=== PATIENT | male | born 1955 | race Caucasian/White ===

== ENCOUNTER 2023-09-25 07:17 | Outpatient (OUT) | payer OTHER, SELFPAY ==
[2023-09-25 07:46] LABS: Basophils Percent Auto 0.3 % (0.2-2.0); Eosinophils Absolute Auto 0.1 10^3/uL (0.0-0.7); Eosinophils Percent Auto 0.8 % (0.9-7.0); Hematocrit 45.3 % (42.0-54.0); Hemoglobin 14.9 g/dL (14.0-18.0); Immature Granulocytes Abs Auto 0.01 10^3/uL (0.00-0.03); Immature Granulocytes Pct Auto 0.2 % (0.0-0.5); Lymphocytes Percent Auto 30.4 % (20.5-60.0); Mean Corpuscular HGB Conc 32.9 g/dL (29.9-35.2); Mean Corpuscular Hemoglobin 29.7 pg (25.9-34.0); Mean Corpuscular Volume 90.4 fL (80.0-94.0); Mean Platelet Volume 9.7 fL (9.5-13.5); Monocytes Absolute Auto 0.6 10^3/uL (0.3-0.8); Monocytes Percent Auto 9.2 % (1.7-12.0); Neutrophils Absolute Auto 3.8 10^3/uL (1.4-6.5); Neutrophils Percent Auto 59.1 % (43.0-75.0); Platelet Count 204 10^3/uL (150-450); Red Blood Count 5.01 10^6/uL (4.70-6.10); Red Cell Distribution Width 12.8 % (11.0-15.0); White Blood Count 6.4 10^3/uL (4.0-11.0)
[2023-09-25 08:43] LABS: Alanine Aminotransferase 29 U/L (16-63); Albumin Level 3.6 g/dL (3.4-5.0); Alkaline Phosphatase 79 U/L (46-116); Aspartate Amino Transferase 23 U/L (15-37); BUN Creatinine Ratio 19.1; Bilirubin Total 0.7 mg/dL (0.2-1.0); Calcium 8.5 mg/dL (8.5-10.1); Carbon Dioxide 31.2 mmol/L (21.0-32.0); Chloride 101 mmol/L (98-107); Chol HDL Ratio 2.7; Cholesterol 181 mg/dL (<=200); Estimated GFR (African America >60 (>=60); Estimated GFR (Non-African Ame >60 (>=60); Globulin 3.6 g/dL; Glucose 86 mg/dL (74-106); HDL Cholesterol 67 mg/dL (40-60); Potassium 4.2 mmol/L (3.5-5.1); Sodium 139 mmol/L (136-145); Total Protein 7.2 g/dL (6.4-8.2); Triglycerides 48 mg/dL (<=150); VLDL CHOLESTEROL 9.6 mg/dL
[2023-09-25 10:12] LABS: Prostate Specific Antigen Scrn 0.31 ng/mL (<=4.00)
== END 2023-09-25 07:18 | disposition home or self-care (01) ==
LOC: LAB 07:17
PROVIDERS: PCP Internal Medicine; Visit Provider Internal Medicine
DX: Z00.00 Encounter for general adult medical examination without abnormal findings (principal); Z12.5 Encounter for screening for malignant neoplasm of prostate
CPT/HCPCS: 36415; 80053; 80061; 85025; G0103

== ENCOUNTER 2024-03-11 07:02 | Outpatient (RCR) | payer OTHER, SELFPAY | END 2024-04-12 09:59 | disposition home or self-care (01) | LOC: PT 07:02 | PROVIDERS: PCP Internal Medicine; Visit Provider Nurse Practitioner Family | DX: Z47.1 Aftercare following joint replacement surgery (principal); Z96.652 Presence of left artificial knee joint | CPT/HCPCS: 97110; 97140; 97161 ==

== ENCOUNTER 2025-02-12 19:23 | Emergency (ER) | payer OTHER, SELFPAY ==
--- OUTSIDE RECORDS SUMMARY | 2025-02-05 13:15 | XMS_ITS | Encounter Summary ---
Author Organization [facility] Address [address] [place] [address] Care Team Providers Care Typesetters Printer Name Role Phone Bhavesh Lopez Primary Care Provider [phone] Reason for Visit * Reason Comments Foot Pain Eagle Marie 69yo Ne w Patient presents with Left, lateral side,foot pain. Patient admits multiple fractures, sprains, with several casts in the late 1970's. Pain started 01/30/2025, NKI, noticed while walking, pain is constant, less when elevating, icing. 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 SS 10.5 Encounter Details Date Type Department Care Team (Late st Contact Info) Description 02/05/2025 1:15 PM EDT [facility] Visit [facility] [address] [place] [phone] Alena Ott, DPM [address] [place] [address] Pain in joint of left foot (Primary Dx); Arthritis of right foot; Peroneal tendonitis, left; Left foot pain Social History Tobacco Use Types Packs/Day Years Used Date Smoking Tobacco: Never Alcohol Use Standard Drinks/Week Comments Yes 1 (1 standard drink = 0.6 oz pur e alcohol) 1-2x monthly Sex and Gender Information Value Date Recorded Sex Assigned at Not on file Legal Sex Male 7:36 PM EDT Gender Identity Not on file Sexual Orientation Not on file documented as of this encounter Last Filed Vital Signs Vital Sign Reading Time Taken Comments Blood Pressure - - Pulse - - Temperature - - Respiratory Rate - - Oxygen Saturation - - Inhaled Oxygen Concentration - - Weight 80.7 kg (178 lb) 02/05/2025 1:26 PM EDT Height 182.9 cm (6') 02/05/2025 1:26 PM EDT Body Mass Index 24.14 02/05/2025 1:26 PM EDT documented in this encounter Progress Notes * Alena Ott, DPM - 02/05/2025 1:15 PM EDT Images from the original note were not included. Subjective Patient ID: Eagle Marie is a 69 y.o. male who presents for Foot Pain (Eagle Marie 69yo New Patient presents with Left, lateral side,foot pain. Patient admits multiple fractures, sprains, with several casts in the late s. Pain started 01/30/2025, NKI, noticed while walking, pain is constant, less when elevating, icing. 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 HPI Patient presents complaining of left lateral foot pain that started January 30. Denies injury. Noticed swelling and pain with ambulation. Describes the pain now is deep throbbing. He has tried icing and on meloxicam for other joint pain. He points to the lateral mid foot as the area of most pain. 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 He also likes to bike for exercise. He does wear custom inserts and typically wears [employer] tennis shoes to work Review of Systems Medications Current Outpatient Medications: meloxicam (Mobic) 15 MG tablet, Take 15 mg by mouth Daily, Disp: , Rfl: predniSONE (Deltasone) 10 MG tablet, Take 1 tablet (10 mg) by mouth See administration instructionsfor 12 days Take one tablet three times a day x 3 days, then take one tablet twice a day x 3 days, then take one tablet once a day x 3 days, then take 1/2 tab once a day x 3 days, Disp: 20 tablet, Rfl: 0 Allergies Patient has no known allergies. Past Surgical History Past Surgical History: Procedure Laterality Date HERNIA REPAIR x3 MENISCECTOMY Bilateral TOTAL KNEE ARTHROPLASTY Right 02/18/2024 Family History Family History Problem Relation Name Age of Onset Melanoma Sister Objective Physical Exam Constitutional: Appearance: Normal appearance. HENT: Head: Normocephalic and atraumatic. Cardiovascular: Comments: Pedal pulses: DP 2/4 bilateral, PT 2/4 bilateral. Skin temp is warm to warm. Varicosities: present Hair growth: present Pulmonary: Effort: Pulmonary effort is normal. Musculoskeletal: Right lower leg: No edema. Left lower leg: No edema. Comments: ROM: Passive and active ankle joint and subtalar joint range motion are nonpainful MUSCLE STRENGTH: Dorsiflexion, plantarflexion, inversion, eversion are 5/5 b/l. PAIN: left foot - there is pain with palpation at the cuboid, 4th 5th metatarsal cuboid joint, calcaneocuboid joint, and lateral cuneiform cuboid joint. There is pain along the PL tendon and cuboid groove interface. DEFORMITY: cavus Skin: General: Skin is warm and dry. Capillary Refill: Capillary refill takes 2 to 3 seconds. Findings: No bruising or erythema. Comments: SKIN FINDINGS: Webspaces are clean and dry. Skin texture and turgor normal HYPERKERATOTIC LESION: none Neurological: Mental Status: He is alert and oriented to person, place, and time. Comments: Light touch sensation intact XR foot 3+ views left Imaging Result: 3 views foot: AP, MO, and lateral of the left foot were taken and show no fractures or dislocationsspecifically of the cuboid. There is metatarsal head flattening noted of 1 and 2. Accessory ossiclenoted just proximal to the cuboid groove. Asymmetric joint space narrowing noted at the 5th metatarsal cuboid joint. Remaining cuboid joints appear well maintained. Lateral view shows increased calcaneal pitch, decreased talar declination angle. There are degenerative changes noted at the tibiotalar joint with spurring at the talar neck and subcortical cystic changes noted in the talus. Small plantar heel spur present. Assessment/Plan ICD-10-CM 1. Pain in joint of left foot M25.572 predniSONE (Deltasone) 10 MG tablet XR foot 3+ views left 2. Arthritis of right foot M19.071 3. Peroneal tendonitis, left M76.72 4. Left foot pain M79.672 Patient was examined and evaluated. Radiographs and clinical findings were reviewed with the patient. Discuss with patient the diagnosis of arthritis/capsulitis and that the chronic issue can sometimes have acute flares of pain/inflammation. I also reviewed the diagnosis of peroneal tendonitis. Stre ss the importance of good supportive tie shoes, dispensed information on [employer] and [employer] to be fit and measured for shoes. Pt wears custom inserts, he tried on powersteps today and liked them, they felt comfortable, these were dispensed to him. Advise no flip flops, slippers nor barefeet, wear supportive shoes and inserts with all weight bearing activity. Modify exercise. Explain the anatomy of the joints involved as well as the peroneal tendons and cuboid. Also advise icing therapy in evenings. Erx Prednisone 10mg taper, hold Meloxicam until Prednisone complete. If no improvement in symptoms consider MRI/immobilization. This note was created with the assistance of a speech recognition program. While intending to generate a timely document that accurately reflects the content of the visit, no guarantee can be provided that every grammatical or spelling mistake has been or will be identified or corrected. Thank you for your understanding. Alena Ott DPM documented in this encounter Plan of Treatment Upcoming Encounters Date Type Department Care Team (Late st Contact Info) Description 03/03/2025 11:00 AM EDT Office Visit [facility] [address] [place] [phone] Alena Ott DPM [address] [place], [place] [phone] documented as of this encounter Procedures Procedure Name Priority Date/Time Associated Diagnosis Comments XR FOOT 3+ VIEWS LEFT Routine 02/05/2025 3:21 PM EDT Pain in joint of left foot documented in this encounter Results * XR foot 3+ views left (02/05/2025 3:21 PM EDT) Anatomical Region Laterality Modality Lower Extremities, Foot Left Radiogra phic Imaging Narrative 02/05/2025 4:33 PM EDT Imaging Result: 3 views foot: AP, MO, and lateral of the left foot were taken and show no fractures or dislocations specifically of the cuboid. There is metatarsal head flattening noted of 1 and 2. Accessory ossicle noted just proximal to the cuboid groove. Asymmetric joint space narrowing noted at the 5th metatarsal cuboid joint. Remaining cuboid joints appear well maintained. Lateral view shows increased calcaneal pitch, decreased talar declination angle. There are degenerative changes noted at the tibiotalar joint with spurring at the talar neck and subcortical cystic changes noted in the talus. Small plantar heel spur present. us Alena Ott DPM IMG XR PROCEDURES Final Res ult documented in this encounter Visit Diagnoses Diagnosis Pain in joint of left foot- Primary Arthritis of right foot Peroneal tendonitis, left Left foot pain Pain in soft tissues of limb documented in this encounter Care Teams Typesetters Printer Relationship Specialty Start Date End Date Bhavesh Lopez DO [address] [place] [id number] PCP - General Internal Medicine 02/04/25 documented as of this encounter
--- OUTSIDE RECORDS SUMMARY | 2025-02-05 15:25 | XMS_ITS | Encounter Summary ---
Author Organization [facility] Address [address] [place] [address] Care Team Providers Care Fruit Thinner Name Role Phone Bhavesh Lopez Primary Care Provider [phone] Encounter Details Date Type Department Care Team (Late st Contact Info) Description 02/05/2025 3:25 PM EDT Ancillary Procedure [facility] [address] [place] [address] Social History Tobacco Use Types Packs/Day Years [...] on file documented as of this encounter Plan of Treatment Upcoming Encounters Date Type Department Care Team (Late st Contact Info) Description 03/03/2025 11:00 AM EDT Office Visit [facility] [address] [place] [address] Alena Ott, DPM [address] [place], [place] [phone] documented as of this encounter Procedures Procedure [...] ult documented in this encounter Visit Diagnoses Not on filedocumented in this encounter Care Teams Fruit Thinner Relationship Specialty Start Date End Date Bhavesh Lopez DO [address] [place] [address] PCP - General Internal Medicine 02/04/25 documented as of this encounter
[2025-02-12 19:31] VITALS: BP 133/88; PULSE 74; TEMP 36.7; O2SAT 97; BMI 23.7
--- OUTSIDE RECORDS SUMMARY | 2025-02-12 19:31 | XMS_ITS | Encounter Summary ---
Author Organization [facility] Address [address] [facility] [place] [address] Care Team Providers Care Oil Recovery Unit Operator Name Role Phone Bhavesh Lopez DO Primary Care Provider [phone] Encounter Details Date Type Department Care Team (Latest Contact Info) Description 02/05/2025 Travel Social History Tobacco Use Types Packs/Day Years [...] AM EDT Office Visit [facility] [address] [place] [phone] Alena Ott, DPM [address] [place] [address] documented as of this encounter Visit Diagnoses Not on filedocumented in this encounter Care Teams Oil Recovery Unit Operator Relationship Specialty Start Date End Date Bhavesh Lopez DO [address] [place] [address] PCP - General Internal Medicine 02/04/25 documented as of this encounter
--- OUTSIDE RECORDS SUMMARY | 2025-02-12 19:31 | XMS_ITS | Patient Health Record ---
Author Organization [facility] Address [address] [place] [address] Care Team Providers Care Basket Patcher Name Role Phone Martínez Casarez Unavailable [phone] Allergies No Known Allergies Reason For Referral No Information Social History Tobacco Use: Social History Observation Description Date Details (start date - stop date) Never Smoker NA - NA Smoking History Question Answer Notes Smoking Status NonSmoker AUDIT-C (Standard) Question Answer Notes Did you have a drink contain ing alcohol in the past year? Yes How often did you have six o r more drinks on one occasion in the past year? Never (0 point) How many drinks did you have on a typical day when you were drinking in the past year? 1 or 2 drinks (0 point) How often did you have a dri nk containing alcohol in the past year? 2 to 4 times a month (2 points) Points 2 Interpretation Negative Problems Problem Type SNOMED Code ICD Code Onset Dates Problem Status W/U Status Risk Notes Problem [id number] Bilateral primar y osteoarthritis of knee (M17.0) Active confirmed Plan Of Treatment No Information Insurance Providers Payer Name Payer Address Payer Phone Subscriber Number Group Number Insured Name Patient Relationship to Insured Coverage Start Date Coverage End Date [facility] [place] [address] [place] [phone] [id number] KAYLEY SANDERSON Self - patient is the insured Medications Administered Medication Instructions Date of Administration Dosage Notes GELSYN-3 10/31/2023 2 mL GELSYN-3 10/31/2023 2 mL GELSYN-3 11/07/2023 2 mL GELSYN-3 11/07/2023 2 mL GELSYN-3 11/12/2023 2 mL GELSYN-3 11/12/2023 2 mL
--- OUTSIDE RECORDS SUMMARY | 2025-02-12 19:31 | XMS_ITS | Clinical Summary ---
Author Organization [facility] Address [address] [place] [address] Care Team Providers Care Cad Manager Name Role Phone Bhavesh Lopez Primary Care Provider [phone] Allergies No known active allergies Medications meloxicam (Mobic) 15 MG tablet Take 15 mg by mouth Daily 5 Active predniSONE (Deltasone) 10 MG tabletIndicati ons:Pain in joint of left foot Take 1 tablet (10 mg) by mouth See administration instructions for 12 days Take one tablet three times a day x 3 days, then take one tablet twice a day x 3 days, then take one tablet once a day x 3 days, then take 1/2 tab once a day x 3 days 20 tablet 5 025 Active Active Problems No known active problems Encounters Date Type Department Care Team Description 02/05/2025 3:25 PM EDT Ancillary Procedure [facility] [address] [place] [address] 02/05/2025 1:15 PM EDT Office Visit [facility] [address] [place] [address] Alena Ott, DPStephie Pain in joint of left foot (Primary Dx); Arthritis of right foot; Peroneal tendonitis, left; Left foot pain 02/05/2025 Bamboo flowsheet [facility] [address] [place] [address] Alena Ott DPM 02/05/2025 Travel from Last 3 Months Family History Medical History Relation Name Comments Melanoma Sister Relation Name Status Comments Father Mother Sister Social History Tobacco Use Types Packs/Day Years Used Date Smoking Tobacco: Never Alcohol Use Standard Drinks/Week Comments Yes 1 (1 standard drink = 0.6 oz pur e alcohol) 1-2x monthly Sex and Gender Information Value Date Recorded Sex Assigned at Not on file Legal Sex Male 7:36 PM EDT Gender Identity Not on file Sexual Orientation Not on file Last Filed Vital Signs Vital Sign Reading Time Taken Comments Blood Pressure - - Pulse - - Temperature - - Respiratory Rate - - Oxygen Saturation - - Inhaled Oxygen Concentration - - Weight 80.7 kg (178 lb) 02/05/2025 1:26 PM EDT Height 182.9 cm (6') 02/05/2025 1:26 PM EDT Body Mass Index 24.14 02/05/2025 1:26 PM EDT Plan of Treatment Upcoming Encounters Date Type Department Care Team (Late st Contact Info) Description 03/03/2025 11:00 AM EDT [facility] Visit [facility] [address] [place] [address] Alena Ott, DPM [address] [place], [place] [phone] Health Maintenance Due Date Last Done Comments CT Colonography 1956 Colonoscopy 1956 Colorectal Cancer Screening 1956 FIT-DNA 1956 FIT 1956 FOBT 1956 Sigmoidoscopy 1956 Pneumococcal Vaccine: 65+ Ye ars (1 of 1 - PCV) 2006 Influenza Vaccine (#1) 2025 3, 06/01/2022, 05/12/2020, Additional history exists Procedures Procedure Name Priority Date/Time Associated Diagnosis Comments XR FOOT 3+ VIEWS LEFT Routine 02/05/2025 3:21 PM EDT Pain in joint of left foot from Last 3 Months Results * XR foot 3+ views left [...] DPM IMG XR PROCEDURES Final Res ult from Last [address] [place] [address] [place] [address] [facility] Care Teams Cad Manager Relationship Specialty Start Date End Date Bhavesh Lopez DO [address] [facility] [place] [address] PCP - General Internal Medicine 02/04/25
--- OUTSIDE RECORDS SUMMARY | 2025-02-12 19:31 | XMS_ITS | Clinical Summary ---
Author Organization [facility] Address [address] [place] [address] Care Team Providers Care Torch Cutter Name Role Phone Bhavesh Lopez Primary Care Provider [phone] Allergies No known active allergies Medications No known medications Active Problems Problem Noted Date Diagnosed Date Tear of medial cartilage or meniscus of knee, cu rrent 06/27/2007 Follow-up examination, following other surgery 1 08/27/2006 Other and unspecified derangement of medial meni scus 05/24/2007 Family History Medical History Relation Comments None Father at 85 None Mother Relation Status Comments Father Mother Social History Tobacco Use Types Packs/Day Years Used Date Smoking Tobacco: Never Smokeless Tobacco: Never Alcohol Use Standard Drinks/Week Comments No 0 (1 standard drink = 0.6 oz pur e alcohol) Sex and Gender Information Value Date Recorded Sex Assigned at Not on file Legal Sex Male 9:35 AM EST Gender Identity Not on file Sexual Orientation Not on file Last Filed Vital Signs Vital Sign Reading Time Taken Comments Blood Pressure 116/63 11/21/2013 3:00 PM EDT Pulse 80 11/21/2013 3:00 PM EDT Temperature 36.4 C (97.5 F) 11/21/2013 3:00 PM EDT Respiratory Rate 18 11/21/2013 3:00 PM EDT Oxygen Saturation 100% 11/21/2013 3:00 PM EDT Inhaled Oxygen Concentration - - Weight 81.6 kg (180 lb) 01/19/2017 12:26 PM EDT Height 182.9 cm (6') 01/19/2017 12:26 PM EDT Body Mass Index 24.41 01/19/2017 12:26 PM EDT Plan of Treatment Health Maintenance Due Date Last Done Comments Anxiety Screening 1974 Depression Screening 1974 Hepatitis C Screening 1974 DTaP,Tdap,Td Vaccine (1 - Tdap) [address] Colonography 2001 Cologuard (FIT-DNA) 2001 Colonoscopy 2001 Colorectal Cancer Screening 2001 Diabetes Screening 2001 Fecal Occult Blood 2001 Prostate Cancer Screening Discussion 2001 Sigmoidoscopy 2001 Pneumococcal Vaccine: 50+ (1 of 1 - PCV) 2006 Shingrix Vaccine (1 of 2) 2006 Covid-19 Vaccine (1 - 2023-25 season) 2024 Advance Directive Discussion 07/30/2024 Influenza Vaccine (#1) 2025 RSV Vaccine (1 - 1-dose 75+ series) 2031 Insurance [facility] CHOICE PLUS Advance Directives Documents on File Type Date Recorded Patient Manager Of Clinical Expl anation Advance Directive(s) Advance Directive(s) 06/14/2007 Care Teams Torch Cutter Relationship Specialty Start Date End Date Bhavesh Lopez DO [address] [facility] [place] [address] PCP - General 06/14/07
--- OUTSIDE RECORDS SUMMARY | 2025-02-12 19:31 | XMS_ITS | Encounter Summary ---
Author Organization [facility] Address [address] [place] [address] Care Team Providers Care Electronics Maintenance Technician Name Role Phone Bhavesh Lopez DO Primary Care Provider [phone] Encounter Details Date Type Department Care Team (Late Contact Info) Description 02/05/2025 Bamboo flowsheet [facility] [address] [place] [address] Alena Ott, DPM [address] [place], [place] [phone] Social History Tobacco Use Types Packs/Day Years [...] Encounters Date Type Department Care Team (Late Contact Info) Description 03/03/2025 11:00 AM EDT [facility] Visit [facility] [address] [place] [address] Alena Ott, VIELKA [address] [facility] [place], [place] [phone] documented as of this encounter Visit Diagnoses Not on filedocumented in this encounter Care Teams Electronics Maintenance Technician Relationship Specialty Start Date End Date Bhavesh Lopez DO [address] [facility] [place] [address] PCP - General Internal Medicine 02/04/25 documented as of this encounter
--- OUTSIDE RECORDS SUMMARY | 2025-02-12 19:32 | XMS_ITS | CCD ---
Author Organization [facility] Inform ion Partnership [facility] Care Team Providers Care Alteration Specialist Name Role Phone BHAVESH LOPEZ Unavailable Unavailable COPC TONYA, GENERIC Unavailable Unavailable KAYLEY VELOZ Unavailable Unavailab AIRAM Fine Unavailable Unavailable SONIA KENNEY Unavailable Unavailable LESLEE WOLFF (PA) Unavailable Unavailab Bhavesh Almaguer Unavailable NILL, DR MARTELL Consulting Unavailable NILL, DR MARTELL Admitting Unavailable NILL, DR MARTELL Attending Unavailable GALLITO, DR EDMONDS Primary Care Unavailable KAYLEY FERNANDEZ JR Attending Unavailable KAYLEY FERNANDEZ JR Consulting Unavailable KAYLEY FERNANDEZ JR Admitting Unavailable GALLITO, DR EDMONDS Primary Care Unavailable FELICITAS DEJESUS Consulting Unavailable KAYLEY FERNANDEZ JR Admitting Unavailable KAYLEY FERNANDEZ JR Attending Unavailable GALLITO, DR EDMONDS Primary Care Unavailable KAYLEY FERNANDEZ JR Consulting Unavailable JULIANA, DR LIDIA Hernandez Admitting Unavailable MANZANARES, DR LIDIA Hernandez Attending Unavailable BALL, DR EDMONDS Primary Care Unavailable NILL, DR MARTELL Admitting Unavailable NILL, DR MARTELL Attending Unavailable BALL, DR EDMONDS Primary Care Unavailable NILL, DR MARTELL Consulting Unavailable NILL, DR MARTELL Admitting Unavailable NILL, DR MARTELL Attending Unavailable BALL, DR EDMONDS Primary Care Unavailable SHAQUILLE PRYOR Consulting Unavailable Siria Faust Unavailable Bhavesh Lopez Unavailable DO Bhavesh Lopez Primary Care Provider [phone] MD Rakan Morton II Attending Provider DO Bhavesh Lopez Primary Care Provider [phone] MD Rakan Morton II Attending Provider DO Bhavesh Lopez Primary Care Provider [phone] MD Rakan Morton II Attending Provider DO Gallito Bhavesh Primary Care Provider [phone] MD Rakan Morton II Attending Provider [phone] Ball , Bhavesh Primary Care Provider Rakan Morton MD Attending Provider [phone] Gallito WADDELL Bhavesh Primary Care Provider [phone] Rakan Morton MD Attending Provider [facility] Unavailable Yoselin II, Rakan Card Attending Unavailabl e Yoselin II, Rakan Card Admitting Unavailabl e Casanova II, Rakan Card Attending Unavailabl e Casanova II, Rakan M Admitting Unavailabl e Ball, Bhavesh Primary Care Unavailable Yoselin II, Rakan Card Attending Unavailabl e Casanova II, Rakan M Admitting Unavailabl e Ball, Bhavesh Primary Care Unavailable Yoselin II, Rakan Card Admitting Unavailabl e Yoselin II, Rakan Card Attending Unavailabl e Ball, Bhavesh Primary Care Unavailable Yoselin II, Rakan Card Admitting Unavailabl e Casanova II, Rakan Card Attending Unavailabl e Ball, Bhavesh Primary Care Unavailable Yoselin II, Rakan Card Attending Unavailabl e Yoselin II, Rakan Card Admitting Unavailabl e Ball, Ashby Primary Care Unavailable Casanova II, Rakan Card Attending Unavailabl e Casanova II, Rakan M Admitting Unavailabl e Ball, Bhavesh Primary Care Unavailable Casanova II, Rakan M Attending Unavailabl e Yoselin II, Rakan M Admitting Unavailabl e Ball, Ashby Primary Care Unavailable Yoselin II, Rakan Card Attending Unavailabl e Casanova II, Rakan M Admitting Unavailabl e Ball, Ashby Primary Care Unavailable Casanova II, Rakan M Attending Unavailabl e Casanova II, Rakan M Admitting Unavailabl e Ball, Ashby Primary Care Unavailable Ball , [facility] Primary Care Provider ALENA RARIOLA Attending Unavailable ALENA ARRIOLA Referring Unavailable Allergies Allergy Classification Reported Allergen(s) Allergy Type Date of Onset Reaction(s) Facility (2 sources) Triamcinolone Drug Allergy 3 Unknown [employer] Other (1 source) Triamcinolone Drug Allergy [facility] Repository Medications Current Medications Medication Drug Class(es) Dates Sig (Normalized) Sig (Original) Diclofenac (2 sources) Nonsteroidal Anti-inflammatory Drug Start: 11-26-2024 Diclofenac Sodium (Voltaren Arthritis Pain) 1 % gel Active 2 GM TOPICAL Four times daily 100 November 26, 2024 12:00am apply small amount to effected area 4-5 times daily erythromycin 0.005 mg/mg ophthalmic ointment (2 sources) Macrolide, Macrolide Antimicrobial Start: 03-30-2023 Erythromycin 5 MG/GM 1/2 inch application into the lower eyelid of affected eye Ophthalmic Four times a day for 5 days Mar, Active meloxicam 15 mg oral tablet (20 sources) Nonsteroidal Anti-inflammatory Drug Start: 08-26-2024 End: 11-26-2024 take 1 tablet by mouth once daily meloxicam (Mobic) 15 MG tablet Take 15 mg by mouth Daily 11/21/2024 Active Start: 09-17-2023 End: 09-20-2023 take 1 tablet by mouth once daily Meloxicam 15 mg tablet Discontinued 15 MG PO Daily September 17, 2023 1:00am September 20, 2023 10:10am Meloxicam 15 MG Oral for 45 Days Active [facility] (No Known Home Meds) (5 sources) Start: 01-03-2024 [facility] (No Kn own Home Meds) Active January 03, 2024 12:00am predniSONE 10 mg oral tablet (2 sources) Start: 02-05-2025 End: 02-17-2025 predniSONE (Deltasone) 10 MG tablet Indications: Pain in joint of left foot Take 1 tablet (10 mg) by mouth See administration instructions for 12 days Take one tablet three times a day x 3 days, then take one tablet twice a day x 3 days, then take one tablet once a day x 3 days, then take 1/2 tab once a day x 3 days 20 tablet 02/05/2025 02/17/2025 Active Completed/Discontinued Medications Medication Drug Class(es) Dates Sig (Normalized) Sig (Original) acetaminophen 500 mg oral tablet (15 sources) Start: 02-07-2024 End: 04-02-2024 take 2 tablets by mouth every eight hours Acetaminophen 500 mg tablet Discontinued 1000 MG PO Q8H 180 30 February 07, 2024 12:00am April 02, 2024 11:40am DO NOT RECONCILE UNTIL DOS:02/18/2024 MED TO BED Start: 02-07-2024 End: 04-02-2024 take 1000 mg by mouth every eight hours Acetaminophen Discontinued 1000 MG PO Q8H 180 February 07, 2024 12:00am April 02, 2024 11:40am DO NOT RECONCILE UNTIL DOS:02/18/2024 MED TO BED acetaminophen 325 mg / oxyCODONE hydrochloride 5 mg oral tablet (20 sources) Opioid Agonist Start: 06-11-2017 End: 09-17-2023 take 1 tablet by mouth every six hours as needed for pain Oxycodone-Acetaminophen (Percocet) 5-325 mg tablet Discontinued 1 TAB PO Q6H as needed for pain June 11, 2017 September 17, 2023 1:07pm Start: 05-20-2017 End: 05-25-2017 take 1 tablet by mouth every six hours oxyCODONE-acetaminophen (PERCOCET) 5-325 mg per tablet Take 1 (one) tablet by mouth every 6 (six) hours as needed for pain. 20 tablet 0 05/20/2017 05/25/2017 Active amoxicillin 500 mg oral tablet (11 sources) Penicillin-class Antibacterial Start: 05-21-2024 End: 08-29-2024 take 4 tablets by mouth once Amoxicillin 500 mg tablet Discontinued 2000 MG PO once 4 June 30, 2024 4:35pm August 29, 2024 11:02am End: 05-20-2017 AMOXICILLIN ORAL Take by tonya th. 05/20/2017 Discontinued amoxicillin 875 mg / clavulanate 125 mg oral tablet (20 sources) Penicillin-class Antibacterial Start: 06-07-2017 End: 09-17-2023 Amoxicillin-Pot Clavulanate 875-125 mg tablet Discontinued TABLET June 07, 2017 1:00am September 17, 2023 1:07pm Start: 05-16-2017 End: 05-25-2017 take 1 tablet by mouth twice daily amoxicillin-clavulanate (AUGMENTIN) 875-125 mg per tablet Take 1 tablet by mouth 2 (two) times a day For 10 days. 05/16/2017 05/25/2017 Active aspirin 81 mg delayed release oral tablet (15 sources) Platelet Aggregation Inhibitor, Nonsteroidal Anti-inflammatory Drug Start: 02-07-2024 End: 04-02-2024 take 1 tablet by mouth twice daily Aspirin 81 mg tablet,delayed release (DR/EC) Discontinued 81 MG PO Twice daily 70 35 February 07, 2024 12:00am April 02, 2024 11:40am DO NOT RECONCILE UNTIL DOS:02/18/2024 MED TO BED cefadroxil 500 mg oral capsule (15 sources) Cephalosporin Antibacterial Start: 02-07-2024 End: 04-02-2024 take 1 capsule by mouth every twelve hours Cefadroxil 500 mg capsule Discontinued 500 MG PO Q12H 14 February 07, 2024 12:00am April 02, 2024 11:40am DO NOT RECONCILE UNTIL DOS:02/18/2024 MED TO BED celecoxib 200 mg oral capsule (15 sources) Nonsteroidal Anti-inflammatory Drug Start: 02-07-2024 End: 08-26-2024 take 1 capsule by mouth twice daily Celecoxib 200 mg capsule Discontinued 200 MG PO Twice daily 60 February 07, 2024 12:00am August 26, 2024 11:22am DO NOT RECONCILE UNTIL DOS:02/18/2024 MED TO BED ciprofloxacin 500 mg oral tablet (20 sources) Quinolone Antimicrobial Start: 06-11-2017 End: 09-17-2023 take 1 tablet by mouth every two hours Ciprofloxacin Hcl (Cipro) 500 mg tablet Discontinued 500 MG PO Q12H 8 June 11, 2017 1:00am September 17, 2023 1:07pm administer dose at least 2 hrs before/6 hrs after dairy products, calcium, zinc, and/or iron-containing products Start: 05-20-2017 End: 05-23-2017 take 1 tablet by mouth twice daily ciprofloxacin HCl (CIPRO) 250 MG tablet Take 1 (one) tablet (250 mg total) by mouth 2 (two) times a day for 3 days. 6 tablet 0 05/20/2017 05/23/2017 Active Start: 05-01-2017 End: 05-20-2017 take 500 tablets by mouth every twelve hours ciprofloxacin HCl (CIPRO) 500 MG tablet Take 500 mg by mouth every 12 (twelve) hours. 0 05/01/2017 05/20/2017 Discontinued docusate sodium 50 mg / sennosides, custodial 8.6 mg oral tablet (15 sources) Start: 02-07-2024 End: 04-02-2024 take 2 tablets by mouth once daily Sennosides-Docusate Sodium (Senokot-S) 8.6-50 mg tablet Discontinued 2 TAB PO daily 60 30 February 07, 2024 12:00am April 02, 2024 11:41am DO NOT RECONCILE UNTIL DOS:02/18/2024 MED TO BED 0.4 ml enoxaparin sodium 100 mg/ml prefilled syringe (1 source) Low Molecular Weight Heparin Start: 05-20-2017 End: 05-20-2017 take 40 mg by subcutaneous injection once daily enoxaparin (LOVENOX) syringe 40 mg 40 mg, Subcutaneous, Daily, First dose on 05/20/17 at 0800, Administer in abdomen unless otherwise directed by prescriber. Notify physician if patient refuses. Given 05/20/2017 07:58 EDT 40 mg 1 ml HYDROmorphone hydrochloride 1 mg/ml injection (2 sources) Opioid Agonist Start: 05-20-2017 End: 05-20-2017 HYDROmorphone (DILAUDID) 1 mg/mL injection 0.5-1 mg 0.5-1 mg, Intravenous, Every 3 hours PRN, moderate to severe pain, dilaudid 0.5 mg ivp q3h prn pain 1-5 dilaudid 1 mg ivp q3h prn pain 6-10, Starting 05/20/17 at 0326 Given 05/20/2017 03:59 EDT 0.5 mg Start: 05-20-2017 End: 05-20-2017 HYDROmorphone (DILAUDID) 1 m g/mL injection 0.5 mg 0.5 mg, Intravenous, Once, 05/20/17 at 0040, For 1 dose Given 05/20/2017 00:44 EDT 0.5 mg Iopamidol (1 source) Radiographic Contrast Agent Start: 05-19-2017 End: 05-19-2017 iopamidol (ISOVUE-370) 76 % injection 75 mL 75 mL, Intravenous, Once in imaging, contrast, Starting 05/19/17 at 2313, For 1 dose Contrast Administered 05/19/2017 23:20 EDT 75 mL metroNIDAZOLE 500 mg oral tablet (1 source) Nitroimidazole Antimicrobial Start: 05-01-2017 End: 05-20-2017 take 1 tablet by mouth three times daily metroNIDAZOLE (FLAGYL) 500 MG tablet Take 500 mg by mouth 3 (three) times a day. 0 05/01/2017 05/20/2017 Discontinued ondansetron 4 mg oral tablet (16 sources) Serotonin-3 Receptor Antagonist Start: 02-07-2024 End: 04-02-2024 take 1 tablet by mouth every eight hours as needed for nausea Ondansetron Hcl 4 mg tablet Discontinued 4 MG PO Q8H as needed for Nausea February 07, 2024 12:00am April 02, 2024 11:40am DO NOT RECONCILE UNTIL DOS:02/18/2024 MED TO BED Start: 05-20-2017 End: 05-20-2017 ondansetron (ZOFRAN) injecti on 4 mg 4 mg, Intravenous, Every 6 hours PRN, nausea, vomiting, Starting 05/20/17 at 0326 Given 05/20/2017 08:09 EDT 4 mg oxyCODONE hydrochloride 5 mg oral tablet (15 sources) Opioid Agonist Start: 02-07-2024 End: 04-02-2024 take 1 tablet by mouth every four hours as needed for pain Oxycodone 5 mg tablet Discontinued 5 MG PO Q4H as needed for Pain 42 February 07, 2024 April 02, 2024 11:41am DO NOT RECONCILE UNTIL DOS:02/18/2024 MED TO BED pantoprazole 20 mg delayed release oral tablet (15 sources) Proton Pump Inhibitor Start: 02-07-2024 End: 04-02-2024 take 1 tablet by mouth once daily Pantoprazole (Protonix) 20 mg tablet,delayed release (DR/EC) Discontinued 20 MG PO daily 35 35 February 07, 2024 12:00am April 02, 2024 11:41am DO NOT RECONCILE UNTIL DOS:02/18/2024 MED TO BED polyethylene glycol 3350 45516 mg powder for oral solution (15 sources) Osmotic Laxative Start: 02-07-2024 End: 04-02-2024 Polyethylene Glycol 3350 (Miralax) 17 gram/dose powder Discontinued 17 GM PO daily 7 February 07, 2024 12:00am April 02, 2024 11:41am 1 packed mixed with 8 ounces of fluid. DO NOT RECONCILE UNTIL DOS:02/18/2024 MED TO BED 1000 ml sodium chloride 9 mg/ml injection (4 sources) Start: 05-20-2017 End: 05-20-2017 take 150 mL intravenous route every hour sodium chloride 0.9% (NS) 150 mL/hr, Intravenous, Continuous, Starting 05/20/17 at 0415 Rate/Dose Verify 05/20/2017 06:27 EDT 150 mL/hr 150 mL/hr Start: 05-19-2017 End: 05-20-2017 take 100 mL intravenous route every hour sodium chloride 0.9% (NS) 100 mL/hr, Intravenous, Continuous, Starting 05/19/17 at 2340 Rate/Dose Change 05/19/2017 23:40 EDT 100 mL/hr 100 mL/hr Start: 05-19-2017 End: 05-20-2017 sodium chloride 0.9% (NS) best fahad 500 mL 500 mL, Intravenous, Once, 05/19/17 at 2340, For 1 dose New Bag 05/20/2017 00:18 EDT 500 mL tamsulosin hydrochloride 0.4 mg oral capsule (20 sources) alpha-Adrenergic Drew Start: 06-07-2017 End: 09-17-2023 Tamsulosin 0.4 mg capsule,extended release 24hr Discontinued June 07, 2017 1:00am September 17, 2023 1:07pm Start: 05-20-2017 End: 05-20-2017 take 1 capsule by mouth once daily at dinner tamsulosin (FLOMAX) 24 hr capsule 0.4 mg 0.4 mg, Oral, After evening meal, First dose on 05/20/17 at 0415, DO NOT CRUSH OR CHEW. Give 30 minutes after the same meal daily. Monitor for orthostasis due to potential risk of syncope. Given 05/20/2017 03:59 EDT 0.4 mg traMADol hydrochloride 50 mg oral tablet (20 sources) Opioid Agonist Start: 02-07-2024 End: 04-02-2024 take 1 tablet by mouth every six hours as needed for pain Tramadol 50 mg tablet Discontinued 50 MG PO Q6H as needed for Pain 40 February 07, 2024 12:00am April 02, 2024 11:41am DO NOT RECONCILE UNTIL DOS:02/18/2024 MED TO BED Start: 06-07-2017 End: 09-17-2023 Tramadol 50 mg tablet Discon tinued TABLET June 07, 2017 1:00am September 17, 2023 1:07pm Start: 05-16-2017 End: 05-20-2017 take 50 tablets by mouth every four hours traMADol (ULTRAM) 50 mg tablet Take 50 mg by mouth every 4 (four) hours as needed . 05/16/2017 Active Problems Active Problems Problem Classification Problem Date Documented Da te Episodic/Chronic Abdominal pain (2 sources) Left lower quadrant pain; Translations: [Left lower quadrant pain] Onset: 7 Episodic Anxiety disorders (1 source) Generalized anxiety disorder; Translations: [Generalized anxiety disorder] Onset: 8 Chronic Calculus of urinary tract (5 sources) Kidney stone; Translations: [Personal history of urinary calculi] Onset: 7 05-20-2017 Episodic Conditions associated with dizziness or vertigo (2 sources) Benign paroxysmal vertigo, unspecified ear; Translations: [Benign paroxysmal positional vertigo] 08-29-2024 Episodic Diverticulosis and diverticulitis (2 sources) Diverticulosis of large intestine without perforation or abscess without bleeding; Translations: [Diverticulitis of colon] Onset: 7 Chronic Fluid and electrolyte disorders (2 sources) Dehydration; Translations: [Dehydration] 08-29-2024 Episodic Hyperplasia of prostate (3 sources) Benign prostatic hyperplasia without lower urinary tract symptoms; Translations: [Benign prostatic hypertrophy without outflow obstruction] Onset: 7 Chronic Osteoarthritis (20 sources) Unspecified osteoarthritis, unspecified site; Translations: [Osteoarthritis of right knee joint] Onset: 1 01-03-2024 Chronic Osteoporosis (20 sources) Osteoporosis; Translations: [Age-related osteoporosis without current pathological fracture] Onset: 4 01-03-2024 Chronic Other aftercare (10 sources) Patient encounter status; Translations: [Aftercare following joint replacement surgery] 03-05-2024 Chronic Other aftercare (17 sources) Aftercare following joint replacement surgery; Translations: [Aftercare following joint replacement] Onset: 4 2024 Chronic Other aftercare (20 sources) Long-term current use of drug therapy; Translations: [[facility] [place] [facility] [place] therapy] 01-03-2024 Episodic Other and unspecified benign neoplasm (2 sources) History of polyp of colon; Translations: [Personal history of colonic polyps] Episodic Other connective tissue disease (10 sources) History of total knee arthroplasty; Translations: [Presence of right artificial knee joint] 03-05-2024 Chronic Other connective tissue disease (17 sources) Presence of right artificial knee joint; Translations: [Knee joint replacement] Onset: 4 2024 Chronic Other connective tissue disease (2 sources) Peroneal tendinitis of left lower limb; Translations: [Peroneal tendinitis, left leg] 02-05-2025 Episodic Other connective tissue disease (2 sources) Pain in left foot; Translations: [Pain in left foot] 02-05-2025 Episodic Other eye disorders (1 source) Other specified disorders of eye and adnexa Episodic Other gastrointestinal disorders (1 source) H/O: gastrointestinal disease; Translations: [Personal history of other diseases of the digestive system] Episodic Other injuries and conditions due to external causes (1 source) Other injury of unspecified body region, initial encounter Episodic Other non-traumatic joint disorders (2 sources) Pain of joint of left foot; Translations: [Pain in left ankle and joints of left foot] 02-05-2025 Episodic Other screening for suspected conditions (not mental disorders or infectious disease) (20 sources) Encounter for screening for diseases of the blood and blood-forming organs and certain disorders involving the immune mechanism; Translations: [Patient encounter status] Onset: 7 09-20-2023 Episodic Other skin disorders (1 source) Xerosis cutis Episodic Other upper respiratory infections (4 sources) Acute pharyngitis; Translations: [Acute pharyngitis, unspecified] Onset: 3 Episodic Residual codes; unclassified (4 sources) Procedure and treatment not carried out due to patient leaving prior to being seen by health care provider; Translations: [PROC AND TX NOT CARRIED OUT PT LEAVE] Onset: 1 Episodic Skin and subcutaneous tissue infections (1 source) Cellulitis of finger of right hand; Translations: [Cellulitis of right finger] Episodic Unclassified (1 source) Unknown / UNK(Unknown) Onset: 7 Unclassified (4 sources) CONTACT W/AND (SUSP) EXPOS COVID-19; Translations: [CONTACT W/AND (SUSP) EXPOS COVID-19] Onset: Past or Other Problems Problem Classification Problem Date Documented Date Episodic/Chronic Abdominal hernia (10 sources) Ventral hernia without obstruction or gangrene; Translations: [Unilateral inguinal hernia, without obstruction or gangrene, not specified as recurrent] Onset: 06-14-2015 Resolved: 08-02-2021 Episodic Open wounds of head; neck; and trunk (1 source) Laceration of head without foreign body; Translations: [Laceration without foreign body of scalp, subsequent encounter] Resolved: 08-02-2021 Episodic Other aftercare (1 source) [place] [facility] [place] [place]; Translations: [Other [place] [facility] [place] drug therapy] Onset: 01-03-2024 Episodic Other and unspecified benign neoplasm (4 sources) Personal history of colonic polyps; Translations: [PERSONAL HISTORY OF COLONIC POLYPS] Onset: 09-15-2020 Episodic Other and unspecified benign neoplasm (1 source) Benign neoplasm of ascending colon; Translations: [BENIGN NEOPLASM OF ASCENDING COLON] Onset: 09-20-2020 Episodic Other diseases of kidney and ureters (2 sources) Hydronephrosis with renal and ureteral calculous obstruction; Translations: [Hydronephrosis with renal and ureteral calculous obstruction] Onset: 05-20-2017 Episodic Other diseases of kidney and ureters (1 source) Hydronephrosis with renal and ureteral calculous obstruction Episodic Other ear and sense organ disorders (1 source) Tinnitus of left ear; Translations: [Tinnitus, left ear] Onset: 05-24-2016 Episodic Other non-traumatic joint disorders (20 sources) Pain in right knee; Translations: [Right knee pain] Onset: 01-03-2024 01-02-2024 Episodic Otitis media and related conditions (1 source) Eustachian tube salpingitis; Translations: [Unspecified Eustachian salpingitis, left ear] Onset: 05-24-2016 Episodic Unclassified (1 source) CONTACT W/AND (SUSP) EXPOS COVID-19; Translations: [CONTACT W/AND (SUSP) EXPOS COVID-19] Onset: 09-11-2020 Viral infection (1 source) Viral disease; Translations: [Unspecified viral infection, in conditions classified elsewhere and of unspecified site] Onset: 02-26-2018 Episodic Results Test Name Value Interpretation Reference Range Facility XR Foot - left 3 [facility] Result: 3 views foot: [place], [place], [...] the talus. Small plantar heel spur present. [facility] Radiology Study observation (narrative) [facility] X-ray reportOrdered By: Archie Upton on 11-26-2024 Study report [facility] [address] [place] [address] XRay Report Signed Patient: Kayley Sanderson MR#: [id number] : 1955 Acct:[id number] Age/Sex: 69 / M ADM Date: 5 [place] [facility] [place]: Type: [facility] Attending Dr: Rakan oMrton II, MD Copies to: Rakan Morton MD~ Ordering Provider: Rakan Morton MD Date of Service: 11/26/24 XR/XR knee RT 3V - NOT FOR ER USE: Z96.651 - Presenceof right artificial knee joint RIGHT KNEE - 2 views CLINICAL HISTORY: Follow-up medial knee replacement COMPARISON: Right knee 08/18/2024 FINDINGS: No hardware complication or acute bony process. Small joint effusion. XR/XR knee RT 3V - NOT FOR ER USE IMPRESSION: NO HARDWARE COMPLICATION. Impression dictated by: Luther Upton Jr., D.O. 11/26/2024 12:49 PM Dictation Location: [place] [address] Transcribed By: [facility] 11/26/24 1249 Dictated By: Luther Upton Jr, DO 11/26/24 1248 Signed By: 11/26/24 1249 [facility] XR knee RT 3V - NOT FOR ER U Black 11-26-2024 XR knee RT 3V - NOT FOR ER USE [facility] [address] [place] [id number] XRay Report Signed Patient: Kayley Sanderson MR#: [id number] : 1955 Acct:[id number] Age/Sex: 69 / M ADM Date: 11/26/24 [place] [facility]: Type: REG CLI Attending Dr: Rakan Morton II, MD Copies to: Rakan Morton MD Ordering Provider: Rakan Mroton MD Date of Service: 11/26/24 XR/XR knee RT 3V - NOT FOR ER USE: Z96.651 - Presence of right artificial knee joint RIGHT KNEE - 2 views CLINICAL HISTORY: Follow-up medial knee replacement COMPARISON: Right knee 08/18/2024 FINDINGS: No hardware complication or acute bony process. Small joint effusion. XR/XR knee RT 3V - NOT FOR ER USE IMPRESSION: NO HARDWARE COMPLICATION. Impression dictated by: Luther Upton Jr., RudyOSumanth 11/26/2024 12:49 PM Dictation Location: [place] [address] Transcribed By: [facility] 11/26/24 1249 Dictated By: Luther Upton Jr, DO 11/26/24 1248 Signed By: 11/26/24 1249 Normal [facility] X-ray reportOrdered By: Dionicio Tyson on 08-26-2024 Study report [facility] [address] [place] [id number] XRay Report Signed Patient: Kayley Sanderson MR#: [id number] : 1955 Acct:[id number] Age/Sex: 69 / M ADM Date: 5 [place]: [facility] [place]: Type: REG CLI Attending Dr: Rakan Morton II, MD Copies to: Rakan Morton MD~ Ordering Provider: Rakan Morton MD Date of Service: 08/26/24 XR/XR knee RT 2V: Z47.1 - Aftercare following joint replacement surgery RIGHT KNEE -2 views CLINICAL HISTORY: Right knee pain weakness 3 weeks COMPARISON: Right knee 02/18/2024 FINDINGS: Postsurgical changes status post medial compartment arthroplasty. No hardware complication. No acute bony process. Small knee joint effusion. XR/XR knee RT 2V IMPRESSION: NO HARDWARE COMPLICATION. Impression dictated by: Bam Tyson M.D.08/26/2024 3:13 PM Dictation Location: RADIO-PC-23 Transcribed By: KAR 08/26/24 151 Dictated By: Bam Tyson MD 08/26/241511 Signed By: 08/26/241512 [facility] Work Phone: XR knee RT 2Von 08-26-2024 XR knee RT 2V [facility] [address] [place] [address] XRay Report Signed Patient: Kayley Sanderson MR#: [id number] 66 : 1955 Acct:[id number] Age/Sex: 69 / M ADM Date: 08/26/24 [place] [facility] [place]: Type: [facility] Attending Dr: Rakan Morton II, MD Copies to: Rakan Morton MD Ordering Provider: Rakan Morton MD Date of Service: 08/26/24 XR/XR knee RT 2V: Z47.1 - Aftercare following joint replacement surgery RIGHT KNEE -2 views CLINICAL HISTORY: Right knee pain weakness 3 weeks COMPARISON: Right knee 02/18/2024 FINDINGS: Postsurgical changes status post medial compartment arthroplasty. No hardware complication. No acute bony process. Small knee joint effusion. XR/XR knee RT 2V IMPRESSION: NO HARDWARE COMPLICATION. Impression dictated by: Bam Tyson M.D.08/26/2024 3:13 PM Dictation Location: RADIO-PC-23 Transcribed By: PWS 08/26/24 151 Dictated By: Bam Tyson MD 08/26/241511 Signed By: 08/26/24 151 [place] [facility] XR knee RT 2Von 05-14-2024 XR knee RT 2V [facility] [address] [place] [address] XRay Report Signed Patient: Kayley Sanderson MR#: [id number] 66 : 1955 Acct:[id number] Age/Sex: 69 / M ADM Date: 05/14/24 [place] [facility] [place]: Type: [facility] Attending Dr: Rakan Morton II, MD Copies to: Rakan Morton MD Ordering Provider: Rakan Morton MD Date of Service: 05/14/24 XR/XR knee RT 2V: Z47.1 - Aftercare following joint replacement surgery ([id number]) XR/XR femur RT 2V*: Z47.1 - Aftercare following joint replacement surgery ([id number]) XR/XR tibia fibula RT 2V*: Z47.1 - Aftercare following joint replacement surgery XR femur RT 2V*, XR tibia fibula RT 2V*, XR knee RT 2V 05/14/2024 6:32 AM SIGNS AND SYMPTOMS: Status post medial right knee arthroplasty PROTOCOL: Frontal radiographs of the bilateral femurs, bilateral tibia, and bilateral fibula, with frontal and lateral radiograph of the right knee COMPARISON: 04/02/2024, 02/18/2024, and 02/07/2024 FINDINGS: There is arthroplasty along the medial weightbearing joint space on the right without hardware complications or change in alignment. The femurs, tibia, and fibula are intact. The hips are intact. There is narrowing of the weightbearing joint spaces on the left, greatest medially. There is mild prepatellar soft tissue swelling on the right. There is a small joint effusion. This has improved slightly when compared prior exam. XR/XR femur RT 2V* IMPRESSION: There is arthroplasty along the medial weightbearing joint space on the right without hardware complications or change in alignment. There is a small joint effusion with prepatellar soft tissue swelling showing slight improvement. Impression dictated by: Lidia Tompkins M.D.05/14/2024 1:32 PM Dictation Location: [place] [address] Transcribed By: [facility] 05/14/24 1332 Dictated By: Lidia Tompkins II, MD 05/14/24 1322 Signed By: 05/14/24 1332 Normal [facility] XR knee RT 3V - NOT FOR ER U Black 04-02-2024 XR knee RT 3V - NOT FOR ER USE [facility] [address] [place] [address] XRay Report Signed Patient: Kayley Sanderson MR#: [id number] 66 : 1955 Acct:[id number] Age/Sex: 69 / M ADM Date: 04/02/24 [place] [facility] [place]: Type: [facility] Attending Dr: Rakan Morton II, MD Copies to: Rakan Morton MD Ordering Provider: Rakan Morton MD Date of Service: 04/02/24 XR/XR knee RT 3V - NOT FOR ER USE: Z47.1 - Aftercare following joint replacement surgery RIGHT KNEE - 3 views CLINICAL HISTORY: Follow-up partial knee replacement COMPARISON: Right knee 02/18/2024 FINDINGS: No hardware complication. No acute bony process. Small knee joint effusion. XR/XR knee RT 3V - NOT FOR ER USE IMPRESSION: NO HARDWARE COMPLICATION. Impression dictated by: Luther Upton Jr., D.OSumanth04/02/2024 3:17 PM Dictation Location: [place] [address] Transcribed By: [facility] 04/02/24 1517 Dictated By: Luther Upton Jr, DO 04/02/24 1516 Signed By: 04/02/24 1517 Normal [facility] ABO/Rh Retypeon 02-18-2024 ABO/RH Recheck Result Negative Normal [facility] Comment on above: Result Comment: PERF ORMED BY: [facility] [address] [place] [address] PATHOLOGIST ACID CHANGER AVERY Andino 02-18-2024 L Specimen: [id number] Received: 02/18/24 Status: SOUT Req Num: [id number] Spec Type: Surgical Subm Dr: Rakan Morton MD Tissues: A Joint/Knee (RT KNEE BONE AND TISSUE) Procedures: HE/2, Gross/Micro L4, Decalcification Age/ Patient Sex Location Account Attending Physician CynthiaKayley Calero 68/M [place] [id number] Rakan Morton MD SPEC NUM: [id number] RECD: 02/18/24 STATUS: CHACE FINNEY NUM: [id number] DEXTER: 02/18/[address] [facility] [address]: Rakan Morton MD ENTERED: 02/18/[address] [facility] [address]: SPEC TYPE: Surgical DEPT: S ORDERED: HE/2, Gross/Micro L4, Decalcification ORDERED: HE/2, Gross/Micro L4, Decalcification Pathological Diagnosis Knee, right (total knee arthroplasty): Osteoarthritis (degenerative joint disease) Subchondral fibrosis and fatty bone marrow Tenosynovial and dense collagenous tissue with degenerative changes No active inflammation seen Clinical Information DJD Gross Description The specimen is received in formalin, labeled with the patient's name and right knee bone and tissue , and consists of a 12.1 x 6.4 x 1.2 cm aggregate of multiple fragments of wasserman- white hemorrhagic bone and fibrous soft tissue. The largest fragment contains an area of circumscribed granularity measuring 2.4 x 1.6 cm. Serial sectioning shows yellow spongy bone matrix. A gross photo is included. Gis Administrator sections are submitted in A1 (bone following decalcification)-A2 (soft tissue). CPT Codes 17921, 30785 Specimen: [id number] Received: 02/18/24 Status: CHACE Andersongina Num: [id number] Spec Type: Surgical Subm Dr: Rakan Morton MD Tissues: A Joint/Knee (RT KNEE BONE AND TISSUE) Procedures: HE/2, Gross/Micro L4, Decalcification Patient: Kayley Sanderson [id number] (Continued) Specimen: [id number] Received: 02/18/24 (Continued) Signed (signature on file) Santy Alberts Jr., MD 02/20/24 1054 Specimen: [id number] Received: 02/18/24 Status: CHACE Finney Num: [id number] Spec Type: Surgical Subm Dr: Rakan Morton MD Tissues: A Joint/Knee (RT KNEE BONE AND TISSUE) Procedures: HE/2, Gross/Micro L4, Decalcification Patient: Kayley Sanderson [id number] (Continued) Specimen: [id number] Received: 02/18/24 (Continued) BONE AND TISSUE Specimen: Received: 02/18/24 Status: TESHANataliya Finney Num: [id number] Spec Type: Surgical Subm Dr: Rakan Morton MD Tissues: A Joint/Knee (RT KNEE BONE AND TISSUE) Procedures: HE/2, Gross/Micro L4, Decalcification Patient: Kayley Sanderson [id number] (Continued) Signed (signature on file) Santy Alberts Jr., MD 02/20/24 1054 Normal [facility] XR knee RT 2Von 02-18-2024 XR knee RT 2V [facility] Main [address] [address] XRay Report Signed Patient: Kayley Sanderson MR#: [id number] 66 : 1955 Acct:[id number] Age/Sex: 68 / M ADM Date: 02/18/24 Loc: [place] Room: Type: [facility] Attending Dr: Rakan Morton II, MD Copies to: Rakan Morton MD Ordering Provider: Rakan Morton MD Date of Service: 02/18/24 XR/XR knee RT 2V: Total or partial knee, due in PACU 2 views right knee plain film COMPARISON: 01/03/2024 HISTORY: Postop right knee arthroplasty ACUTE FINDINGS: No acute findings DEGENERATIVE CHANGE: Unremarkable SOFT TISSUE FINDINGS: Anterior postsurgical soft tissue changes. JOINT EFFUSION: None POSTOP CHANGES: Medial compartment hardware intact and in adequate position. BONE MINERALIZATION: Adequate XR/XR knee RT 2V IMPRESSION: Uncomplicated partial medial knee arthroplasty Impression dictated by: Gael Kenney M.D.02/18/2024 2:35 PM Dictation Location: [place] [address] Transcribed By: [facility] 02/18/24 1435 Dictated By: Gael Kenney DO 02/18/24 1428 Signed By: 02/18/24 1435 Normal [facility] XR tibia fibula RT 2V*on XR tibia fibula RT 2V* [facility] [address] [place] [address] XRay Report Signed Patient: Kayley Sanderson MR#: [id number] : 1955 Acct:[id number] Age/Sex: 68 / M ADM Date: 02/07/24 [place] [facility] [place]: Type: [facility] Attending Dr: Rakan Morton II, MD Copies to: Rakan Morton MD Ordering Provider: Rakan Morton MD Date of Service: 02/07/24 XR/XR femur RT 2V*: M17.11 - Unilateral primary osteoarthritis, right knee ([id number]) XR/XR tibia fibula RT 2V*: M17.11 - Unilateral primary osteoarthritis, right knee RIGHT FEMUR AND TIB-FIB - one view COMPARISON: 01/03/2024 pelvis and right knee CLINICAL DATA: Preoperative planning for right knee replacement AP standing view of both lower extremities was obtained from above the iliac crest down to the ankles. There is no evidence of femur fracture. There is mild narrowing of the left and moderate to severe narrowing of the right medial tibiofemoral joint compartments. There is minimal marginal spurring. There is also minor marginal spurring at the periphery of the femoral heads. The hip joint spaces are symmetric. No soft tissue abnormalities are seen. The tibia and fibula are intact on both sides. There is no dislocation at the ankles. No soft tissue abnormalities are present. XR/XR femur RT 2V* IMPRESSION: DEGENERATIVE CHANGES AT THE HIPS AND KNEES. Impression dictated by: Kathia Escobar M.D.02/07/2024 4:30 PM Dictation Location: [place] [address] Transcribed By: [facility] 02/07/24 1630 Dictated By: Kathia Escobar MD 02/07/24 1615 Signed By: 02/07/24 1630 Normal [facility] Automated basophil %Ordered By: Rakan Morton on 02-01-2024 Basophils/100 WBC (Bld) 0.4 % Normal . [facility] Comment on above: Performed By: #### B MP, CBC #### [facility] [address] #### FRUC #### [facility] , Automated basophil countOrde red By: Rakan Morton on 02-01-2024 Basophils (Bld) [#/Vol] 0.0 10*3/uL Normal 0.0-0.2 [facility] Comment on above: Result Comment: PERF ORMED BY: [place] [address] PATHOLOGIST ACID CHANGER AVERY HAWKINS M.D. Performed By: #### B MP, CBC #### [place] [address] [place] #### FRUC #### [facility] , Automated blood monocyte cou ntOrdered By: Rakan Morton on 02-01-2024 Monocytes (Bld) [#/Vol] 0.5 10*3/uL Normal 0.0-0.8 [facility] Comment on above: Performed By: #### B MP, CBC #### [place] [address] [place] #### FRUC #### [facility] , Automated eosinophil %Ordere d By: Rakan Morton on 02-01-2024 Eosinophils/100 WBC (Bld) 0.5 % Normal . [facility] Comment on above: Performed By: #### B MP, CBC #### [place] [address] [place] #### FRUC #### [facility] , Automated eosinophil countOr dered By: Rakan Morton on 02-01-2024 Eosinophils (Bld) [#/Vol] 0.0 10*3/uL Normal 0.0-0.45 [facility] Comment on above: Performed By: #### B MP, CBC #### [facility] [address] [place] [address] [place] #### FRUC #### [facility] , Automated monocyte %Ordered By: Rakan Morton on 02-01-2024 Monocytes/100 WBC (Bld) 10.9 % Normal . [facility] Comment on above: Performed By: #### B MP, CBC #### [facility] [address] [place] [address] [place] #### FRUC #### [facility] , Automated neutrophil %Ordere d By: Rakan Morton on 02-01-2024 Neutrophils/100 WBC (Bld) 59.8 % Normal . [facility] Comment on above: Performed By: #### B MP, CBC #### [facility] [address] [place] [address] [place] #### FRUC #### [facility] , Basic Metabolic Panelon GFR/1.73 sq M.predicted MDRD (S/P/Bld) [Vol rate/Area] mL/min/{1.73_m2} Normal [facility] Comment on above: Performed By: #### B MP, CBC #### [place] [address] [place] #### FRUC #### [facility] , Bilirubin Test strip Ql (U)O rdered By: Rakan Morton on 02-01-2024 Bilirubin Ql (U) Negative Negative [facility] Calcium [Mass/volume] in Ser um or PlasmaOrdered By: Rakan Morton on 02-01-2024 Calcium [Mass/Vol] 8.8 mg/dL Normal 8.6-10.3 [facility] Comment on above: Result Comment: PERF ORMED BY: [place] [address] PATHOLOGIST ACID CHANGER AVERY HAWKINS M.D. Performed By: #### B MP, CBC #### [facility] [address] [place] [address] [place] #### FRUC #### [facility] , Carbon dioxide, total [Moles /volume] in Serum or PlasmaOrdered By: Rakan Morton on 02-01-2024 CO2 [Moles/Vol] 27.9 mmol/L Normal 21.0-31.0 [facility] Comment on above: Performed By: #### B MP, CBC #### [place] [address] [place] #### FRUC #### [facility] , Chloride [Moles/volume] in S sami or PlasmaOrdered By: Rakan Morton on 02-01-2024 Chloride [Moles/Vol] 105 mmol/L Normal 98-107 [facility] Comment on above: Performed By: #### B MP, CBC #### [place] [address] [place] #### FRUC #### [facility] , Color of Urine by AutoOrdere d By: Rakan Morton on 02-01-2024 Color (U) Light-yellow Normal Yellow [facility] Comment on above: Order Comment: Name Collection Type:: Clean-Voided Midstream Performed By: #### U A #### [address] Complete Blood Count Auto Di ffon 02-01-2024 Mean Corpuscular HGB Conc 34.4 g/dL Normal 32.5-35.6 [facility] Comment on above: Performed By: #### B MP, CBC #### [place] [address] [place] #### FRUC #### [facility] , NRBC% 0.1 /100{WBC} Normal 0-0.5 [facility] Comment on above: Performed By: #### B MP, CBC #### [place] [address] [place] #### FRUC #### [facility] , Creatinine [Mass/volume] in Serum or PlasmaOrdered By: Rakan Morton on 02-01-2024 Creatinine [Mass/Vol] 0.97 mg/dL Normal 0.70-1.30 [facility] Comment on above: Performed By: #### B MP, CBC #### [place] [address] [place] #### FRUC #### [facility] , ECG 12 lead ECGon 02-01-2024 ECG 12 lead ECG [facility] [place] [address] [place] [address] Electrocardiograph Report Signed Patient: Kayley Sanderson MR#: [id number] : 1955 Acct:[id number] Age/Sex: 68 / M ADM Date: 02/01/24 Loc: Room: Type: [facility] Attending Dr: Rakan Morton II, MD Ordering Provider: Rakan Morton MD Date of Service: 02/01/2412/20/924 ECG/ECG 12 lead ECG: preop Copies to: Test Reason : Blood Pressure : / mmHG Vent. Rate : 061 BPM Atrial Rate : 061 BPM P-R Int : 160 ms QRS Dur : 088 ms QT Int : 402 ms P-R-T Axes : 078 068 045 degrees QTc Int : 404 ms Normal sinus rhythm Normal ECG No previous ECGs available Confirmed by ROLAND [facility], [place] ([id number]) on 02/01/2024 5:20:57 PM Referred By: GALLITO MORTON Electronically Signed By:KRYSTLE FOX MD [facility] Transcribed By: [facility] Signed By Krystle Fox MD, [facility] 02/01/24 1720 Normal [facility] Erythrocyte distribution wid th [Ratio] by Automated countOrdered By: Rakan Morton on 02-01-2024 Erythrocyte distribution width (RBC) [Ratio] 13.2 % Normal 12.0-14.8 [facility] Comment on above: Performed By: #### B MP, CBC #### [address] #### FRUC #### [facility] , Erythrocytes [#/volume] in B lood by Automated countOrdered By: Rakan Morton on 02-01-2024 RBC (Bld) [#/Vol] 4.72 10*6/uL Normal 3.90-5.60 [facility] Comment on above: Performed By: #### B MP, CBC #### [facility] [address] [place] [address] [place] #### FRUC #### [facility] , Fructosamineon 02-01-2024 Fructosamine 232 umol/L Normal 0-285 [facility] Comment on above: Result Comment: Publ ished reference interval for apparently healthy subjects between age 20 and 60 is 205 - 285 umol/L and in a poorly controlled diabetic population is 228 - 563 umol/L with a mean of 396 umol/L. Performed at: - [facility] [address] [place], [place] [id number] Publishing Agent: Raza Chavez PhD, Phone: [phone] PERFORMED BY: [place] [address] PATHOLOGIST ACID CHANGER AVERY HAWKINS M.D. Performed By: #### B MP, CBC #### [facility] [address] [place] [address] #### FRUC #### [facility] , Fructosamine [Moles/volume] in Serum or PlasmaOrdered By: Rakan Morton on 02-01-2024 Fructosamine [Moles/Vol] 232 umol/L 0-285 [facility] Comment on above: Published reference interval for apparently healthysubjects between age 20 and 60 is 205 - 285 umol/L and in apoorly controlled diabetic population is 228 - 563 umol/Lwith a mean of 396 umol/L.Performed at: [facility] [id number] [place], [place] [id number] Director: Raza Chavez PhD, Phone: [phone] Glucose [Mass/volume] in Ser um or PlasmaOrdered By: Rakan Morton on 02-01-2024 Glucose [Mass/Vol] 84 mg/dL Normal 70-100 [facility] Comment on above: ADA recommended refe rence rangeRandom Glucose Reference Range is dependent on time and content of last meal. Glucose of more than 200 mg/dL in a nonstressed, ambulatory subject supports the diagnosis of Diabetes Mellitus. Result Comment: [place] om Glucose Reference Range is dependent on time and content of last meal. Glucose of more than 200 mg/dL in a nonstressed, ambulatory subject supports the diagnosis of Diabetes Mellitus. ADA recommended reference range Performed By: #### B MP, CBC #### [address] #### FRUC #### [facility] , Glucose [Mass/volume] in Uri ne by Test stripOrdered By: Rakan Morton on 02-01-2024 Glucose Test strip (U) [Mass/Vol] Normal mg/dL Normal [facility] Hematocrit [Volume Fraction] of Blood by Automated countOrdered By: Rakan Morton on 02-01-2024 Hematocrit (Bld) [Volume fraction] 42.8 % Normal 38.8-50.0 [facility] Comment on above: Performed By: #### B MP, CBC #### [place] [address] [place] #### FRUC #### [facility] , Hemoglobin Test strip Ql (U) Ordered By: Rakan Morton on 02-01-2024 Hemoglobin Ql (U) Negative Negative [facility] Hemoglobin [Mass/volume] in BloodOrdered By: Rakan Morton on 02-01-2024 Hemoglobin (Bld) [Mass/Vol] 14.7 g/dL Normal 13.0-17.0 [facility] Comment on above: Performed By: #### B MP, CBC #### [place] [address] [place] #### FRUC #### [facility] , Ketones [Presence] in Urine by Test stripOrdered By: Rakan Morton on 02-01-2024 Ketones Ql (U) Negative Normal Negative [facility] Comment on above: Order Comment: Name Collection Type:: Clean-Voided Midstream Performed By: #### U A #### [address] Leukocyte esterase [Presence ] in Urine by Test stripOrdered By: Rakan Morton on 02-01-2024 Leukocyte esterase Test strip Ql (U) Negative Normal Negative [facility] Comment on above: Order Comment: Name Collection Type:: Clean-Voided Midstream Performed By: #### U A #### [address] Leukocytes [#/volume] correc missy for nucleated erythrocytes in Blood by Automated counOrdered By: Rakan Morton on 02-01-2024 WBC corrected for nucl RBC Auto (Bld) [#/Vol] 5.0 10*3/uL 4.1-10.5 [facility] Leukocytes [#/volume] in Blo od by Automated countOrdered By: Raakn Morton on 02-01-2024 WBC (Bld) [#/Vol] 5.0 10*3/uL Normal 4.1-10.5 [facility] Comment on above: Performed By: #### B MP, CBC #### [facility] [address] [place] [address] [place] #### FRUC #### [facility] , Lymphocytes [#/volume] in Bl ood by Automated countOrdered By: Rakan Morton on 02-01-2024 Lymphocytes (Bld) [#/Vol] 1.4 10*3/uL Normal 1.00-4.8 [facility] Comment on above: Performed By: #### B MP, CBC #### [facility] [address] [place] [address] [place] #### FRUC #### [facility] , Lymphocytes/100 leukocytes i n Blood by Automated countOrdered By: Rakan Morton on 02-01-2024 Lymphocytes/100 WBC (Bld) 28.4 % Normal . [facility] Comment on above: Performed By: #### B MP, CBC #### [facility] [address] [place] [address] [place] #### FRUC #### [facility] , MCH [Entitic mass] by Automa missy countOrdered By: Rakan Morton on 02-01-2024 MCH (RBC) [Entitic mass] 31.1 pg Normal 27.5-35.2 [facility] Comment on above: Performed By: #### B MP, CBC #### [facility] [address] [place] [address] [place] #### FRUC #### [facility] , MCHC Auto (RBC) [Mass/Vol]Or dered By: Rakan Morton on 02-01-2024 MCHC (RBC) [Mass/Vol] 34.4 g/dL 32.5-35.6 [facility] MCV [Entitic volume] by Auto mated countOrdered By: Rakan Morton on 02-01-2024 MCV (RBC) [Entitic vol] 90.6 fL Normal 83.5-101 [facility] Comment on above: Performed By: #### B MP, CBC #### [facility] [address] [place] [address] [place] #### FRUC #### [facility] , Neutrophils [#/volume] in Bl ood by Automated countOrdered By: Rakan Morton on 02-01-2024 Neutrophils (Bld) [#/Vol] 3.0 10*3/uL Normal 1.8-7.7 [facility] Comment on above: Performed By: #### B MP, CBC #### [place] [address] [place] #### FRUC #### [facility] , Nitrite Test strip Ql (U)Ord ered By: Rakan Morton on 02-01-2024 Nitrite Ql (U) Negative Negative [facility] No Panel InformationOrdered By: Rakan Morton on 02-01-2024 Estimated GFR (CKD-EPI) > 60.0 mL/Min [facility] Creatinine Clearance (Chem N/A [facility] Nucleated erythrocytes [Pres ence] in Blood by Automated countOrdered By: Rakan Morton on 02-01-2024 Nucleated RBC Auto Ql (Bld) 0.1 /100{WBC} 0-0.5 [facility] PST Type and Screenon 2023 ABO and Rh group Nom (Bld) Blood group O Rh(D) negative Normal [facility] Comment on above: Order Comment: Date of Surgery: [id number] Result Comment: PERF ORMED BY: [place] [address] PATHOLOGIST ACID CHANGER AVERY HAWKINS M.D. Platelet mean volume [Entiti c volume] in Blood by Automated countOrdered By: Rakan Morton on 02-01-2024 Platelet mean volume (Bld) [Entitic vol] 8.1 fL Normal 6.6-10.1 [facility] Comment on above: Performed By: #### B MP, CBC #### [facility] [address] [place] [address] [place] #### FRUC #### [facility] , Platelets [#/volume] in Bloo d by Automated countOrdered By: Rakan Morton on 02-01-2024 Platelets (Bld) [#/Vol] 202 10*3/uL Normal 150-450 [facility] Comment on above: Performed By: #### B MP, CBC #### [facility] [address] [place] [address] [place] #### FRUC #### [facility] , Potassium [Moles/volume] in Serum or PlasmaOrdered By: Rakan Morton on 02-01-2024 Potassium [Moles/Vol] 4.4 mmol/L Normal 3.5-5.1 [facility] Comment on above: Performed By: #### B MP, CBC #### [facility] [address] [place] [address] [place] #### FRUC #### [facility] , Protein Test strip (U) [Mass /Vol]Ordered By: Rakan Morton on 02-01-2024 Protein (U) [Mass/Vol] Negative Negative [facility] Serum or plasma anion gap de terminationOrdered By: Rakan Morton on 02-01-2024 Anion gap [Moles/Vol] 9.5 mmol/L Normal 6.0-15.0 [facility] Comment on above: Performed By: #### B MP, CBC #### [facility] [address] [place] [address] [place] #### FRUC #### [facility] , Sodium [Moles/volume] in Ser um or PlasmaOrdered By: Rakan Morton on 02-01-2024 Sodium [Moles/Vol] 138 mmol/L Normal 136-145 [facility] Comment on above: Performed By: #### B MP, CBC #### [address] #### FRUC #### [facility] , Specific gravity Test strip (U) [Rel density]Ordered By: Rakan Morton on 02-01-2024 Specific gravity (U) [Rel density] 1.017 1.001-1.03 0 [facility] Urea nitrogen [Mass/volume] in Serum or PlasmaOrdered By: Rakan Morton on 02-01-2024 Urea nitrogen [Mass/Vol] 15 mg/dL Normal 7-25 [facility] Comment on above: Performed By: #### B MP, CBC #### [facility] [address] [place] [address] [place] #### FRUC #### [facility] , Urinalysison 02-01-2024 Bilirubin,Urine Negative Normal Negative [facility] Comment on above: Order Comment: Name Collection Type:: Clean-Voided Midstream Performed By: #### U A #### [address] Glucose Ql (U) Normal Normal Normal [facility] Comment on above: Order Comment: Name Collection Type:: Clean-Voided Midstream Performed By: #### U A #### [address] Nitrite,Urine Negative Normal Negative [facility] Comment on above: Order Comment: Name Collection Type:: Clean-Voided Midstream Performed By: #### U A #### [place] [id number] [place] Occult Blood,Urine Negative Normal Negative [facility] Comment on above: Order Comment: Name Collection Type:: Clean-Voided Midstream Result Comment: PERF ORMED BY: [place] [address] PATHOLOGIST ACID CHANGER AVERY HAWKINS M.D. Performed By: #### U A #### [address] Protein,Urine Negative Normal Negative [facility] Comment on above: Order Comment: Name Collection Type:: Clean-Voided Midstream Performed By: #### U A #### [address] Specificy [place],Urine 1.017 Normal 1.001-1.03 0 [facility] Comment on above: Order Comment: Name Collection Type:: Clean-Voided Midstream Performed By: #### U A #### [address] Urobilinogen,Urine Normal Normal Normal [facility] Comment on above: Order Comment: Name Collection Type:: Clean-Voided Midstream Performed By: #### U A #### [address] Urine appearanceOrdered By: Rakan Morton on 02-01-2024 Appearance (U) Clear Normal Clear [facility] Comment on above: Order Comment: Name Collection Type:: Clean-Voided Midstream Performed By: #### U A #### [address] Urobilinogen Test strip (U) [Mass/Vol]Ordered By: Rakan Morton on 02-01-2024 Urobilinogen (U) [Mass/Vol] Normal mg/dL Normal [facility] pH of Urine by Test stripOrd ered By: Rakan Morton on 02-01-2024 pH (U) 7.5 [pH] Normal 5.0-9.0 [facility] Comment on above: Order Comment: Name Collection Type:: Clean-Voided Midstream Performed By: #### U A #### [facility] [address] A1C with Estimated Average G khrisn 01-03-2024 Glucose [Mass/Vol] 108 mg/dL Normal [facility] Comment on above: Result Comment: PERF ORMED BY: [facility] [address] [place] [address] PATHOLOGIST ACID CHANGER AVERY HAWKINS M.D. Performed By: #### V [id number], A1C WTH SANA MartinezRSMichelle #### [facility] [address] #### NICOTINE #### [facility] , Cotinine [Mass/volume] in Se rum or PlasmaOrdered By: Rakan Morton on 01-03-2024 Cotinine [Mass/Vol] <1.0 ng/mL . [facility] Comment on above: This test was develo ped and its performance characteristicsdetermined by [facility] It has not been cleared orapproved by the Food and Drug Administration.Cotinine levels greater than 20.0 are consistent with theuse of tobacco or tobacco cessation products.Performed at: - [address] [id number] Director: Alfonso Saenz MD, Phone: [phone] Glucose mean value [Mass/vol ume] in Blood Estimated from glycated hemoglobinOrdered By: Rakan Morton on 01-03-2024 Average glucose Estimated from glycated hemoglobin (Bld) [Mass/Vol] 108 mg/dL [facility] Hemoglobin A1c percentageOrd ered By: Rakan Morton on 01-03-2024 HbA1c (Bld) [Mass fraction] 5.4 % Normal 4.3-5.6 [facility] Comment on above: Increased risk for d iabetes: 5.7 - 6.4diabetes: >6.4glycemic control for adults with diabetes: <7.0 Result Comment: Incr eased risk for diabetes: 5.7 - 6.4 diabetes: >6.4 glycemic control for adults with diabetes: <7.0 Performed By: #### V [id number], A1C WTH eASANARSA #### [facility] [address] [place] [address] [place] #### NICOTINE #### [facility] , MRSA Cultureon 01-03-2024 MRSA Culture MRSA Culture Results No MRSA Isolated 2 Days PERFORMED BY: [place] [address] PATHOLOGIST ACID CHANGER AVERY HAWKINS M.D. Normal [facility] Comment on above: Performed By: #### V [id number], A1C WT Michelle CUMRSA #### [place] [address] [place] #### NICOTINE #### [facility] , Nicotine [Mass/volume] in Se rum or PlasmaOrdered By: Rakan Morton on 01-03-2024 Nicotine [Mass/Vol] <1.0 ng/mL . [facility] Comment on above: This test was develo ped and its performance characteristicsdetermined by [facility]. It has not been cleared orapproved by the Food and Drug Administration.Nicotine levels greater than 2.0 are consistent with theuse of tobacco or tobacco cessation products. Nicotine/Cotinine Bloodon Cotinine, Blood <1.0 Normal . [facility] Comment on above: Result Comment: This test was developed and its performance characteristics determined by [facility]. It has not been cleared or approved by the Food and Drug Administration. Cotinine levels greater than 20.0 are consistent with the use of tobacco or tobacco cessation products. Performed at: [address] [id number] Publishing Agent: Alfonso Saenz MD, Phone: [phone] PERFORMED BY: [place] [address] PATHOLOGIST ACID CHANGER AVERY HAWKINS M.D. Performed By: #### V [id number], A1C WT Michelle CUMRSA #### [place] [address] [place] #### NICOTINE #### [facility] , Nicotine, Blood <1.0 Normal . [facility] Comment on above: Result Comment: This test was developed and its performance characteristics determined by [facility] It has not been cleared or approved by the Food and Drug Administration. Nicotine levels greater than 2.0 are consistent with the use of tobacco or tobacco cessation products. Performed By: #### V [id number], A1C [facility] SANA MartinezRSA #### [address] #### NICOTINE #### [facility] , Vitamin D 25 Hydroxy Totalon 01-03-2024 Vitamin D 25 Hydroxy Total 38.9 ng/mL Normal 30-100 [facility] Comment on above: Result Comment: SONJA MIN D STATUS 25(OH)VITAMIN D RANGE (ng/mL) Deficient <20 Insufficient 20 to <30 Sufficient 30 to 100 Reference: Yahaira Badillo, Akhil CARPIO, et al. Evaluation,treatment, and prevention of vitamin D deficiency; an Endocrine Society clinical practice guideline. JCEM. 2010; 96(7):191-. PERFORMED BY: [place] [address] PATHOLOGIST ACID CHANGER AVERY HAWKINS M.D. Performed By: #### V [id number], [address] PIEDAD Martinez #### [address] #### NICOTINE #### [facility] , Vitamin D+Metabolites [Mass/ volume] in Serum or PlasmaOrdered By: Rakan Morton on 01-03-2024 Vitamin D+Metabolites [Mass/Vol] 38.9 ng/mL 30-100 [facility] Comment on above: VITAMIN D STATUS 25( [place])VITAMIN D RANGE (ng/mL) Deficient <20 Insufficient 20 to <30Sufficient 30 to 100Reference: Yahaira Badillo, Akhil CARPIO, et al. Evaluation,treatment, and prevention of vitamin D deficiency; an Endocrine Society clinical practice guideline. JCEM. 2010; 96(7):191-. Wound methicillin resistant Staphylococcus aureus (MRSA) cultureOrdered By: Rakan Morton on 01-03-2024 MRSA isol Org specific cx Ql (Unsp spec) [facility] XR pelvis 1-2Von 01-03-2024 XR pelvis 1-2V [facility] [address] [place] [address] XRay Report Signed Patient: Kayley Sanderson MR#: [id number] : 1955 Acct:[id number] Age/Sex: 68 / M ADM Date: 01/03/24 [place] [facility] [place]: Type: [facility] Attending Dr: Rakan Morton II, MD Copies to: Rakan Morton MD Ordering Provider: Rakan Morton MD Date of Service: 01/03/24 XR/XR knee RT 4V*: M25.561 - Pain in right knee ([id number]) XR/XR pelvis 1-2V: M25.561 - Pain in right knee CLINICAL DATA: Worsening medial right knee pain, greatest with ambulating. No reported injury. WEIGHTBEARING LOW AP PELVIS COMPARISON: None No acute fractures or dislocation are identified. There is no disproportionate narrowing at the hip joint spaces. There is minor marginal spurring at the superior acetabula and periphery of the femoral heads. No soft tissue abnormalities are seen. XR/XR knee RT 4V* IMPRESSION: MINOR DEGENERATIVE CHANGES AT THE HIPS. RIGHT KNEE - 4 views COMPARISON: None Weightbearing AP, lateral, skiers and patellar views were obtained. No acute fractures or dislocation are identified. There is approximately 5 - 6 mm of medial subluxation of the femur with respect to the tibial plateau. There is also subtle lateral subluxation of the patella. There is narrowing of the medial tibiofemoral joint compartment with bone to bone contact. There are tiny tricompartment marginal spurs. There is a trace amount of fluid within the suprapatellar bursa. No soft tissue abnormalities noted. IMPRESSION: DEGENERATIVE CHANGES, GREATEST MEDIALLY. Impression dictated by: Kathia Escobar M.D.01/03/2024 1:37 PM Dictation Location: [place] [address] Transcribed By: [facility] 01/03/24 1337 Dictated By: Kathia Escobar MD 01/03/24 1334 Signed By: 01/03/24 1337 Normal [facility] Phys[facility] Ambulatory Clinical Summaryo n 09-21-2020 Ambulatory Clinical Summary {[id number]}CD:61 4368 Normal [facility] General Surgery Office/Clini c Noteon 09-21-2020 General Surgery Office/Clinic Note Chief Complaint post operative follow up HPI Staff 27 day post operative follow up post RIH and epigastric hernia repairs. Doing well. Minimal discomfort. No use of pain medication. Bowels moving well. Urinating without difficulty. History of Present Illness 4 weeks s/p primary epigastric hernia repair and RIHR with mesh; doing well, mild soreness with activities; no drainage from incisions, no bulging. Review of Systems ROS - Provider Constitutional: no fever, no sweats, no weight loss. Eyes: no glasses, no blurred vision, no visual loss. ENMT: no dentures, no hoarseness, no swallowing difficulties, no hearing loss, no ear infection(s), no nose bleeds. Cardiovascular: normal blood pressure, no chest pain, regular heartbeat, no heart murmur. Respiratory: no shortness of breath, no cough, no asthma, no wheezing. Gastrointestinal: no nausea, no vomiting, no diarrhea, no constipation, no blood in stool, no change in bowel habits, mild abdominal pain, no hepatitis. Genitourinary: no kidney stones, no urine infection, no dysuria. Musculoskeletal: no pain, no weakness. Skin: no changing moles, no rash, no skin lumps. Neurologic: no seizures, no epilepsy, no headache. Psychiatric: no emotional or psychiatric problem. Heme/Lymph: no bleeding problems, no anemia, no blood clots, no transfusions. Allergy/Immunologic: no swollen lymph nodes/glands, no IV drug abuse. Other: Additional ROS info: Except as noted in the above Review of Systems and in the History of Present Illness, all other systems have been reviewed and are negative or noncontributory. Physical Exam Vitals & Measurements T: 36.4(Tympanic) abd: soft, nontender, nondistended; incisions healing well, no erythema or drainage, no ecchymoses; no seromas or recurrent hernias. Assessment/Plan 1. Right inguinal hernia (K40.90: Unilateral inguinal hernia, without obstruction or gangrene, not specified as recurrent) gradually resume regular activities over the next 2 weeks; return to work 10/04/20 without restrictions; can return to gym; call with problems/questions. 2. Epigastric hernia (K43.9: Ventral hernia without obstruction or gangrene) see # 1 Follow-up With When Contact Information Jayshree CA MD Only if needed [address] [place] [address]- Additional Instructions: Problem List/Past Medical History Ongoing BPH associated with nocturia Epigastric hernia History of nephrolithiasis Right inguinal hernia Umbilical hernia Historical No qualifying data Procedure/Surgical History Open repair of inguinal hernia (08/25/2020), Repair of epigastric hernia (08/25/2020), Colonoscopy (06/29/2017), Cystoscopy (05/30/2017), Ureteroscopy (04/29/2017), Arthroscopy of knee (10/28/2013), Repair of left inguinal hernia (07/30/1983). Medications No active medications Allergies Kenalog (Syncope) Social History Alcohol - Denies Alcohol Use, 08/04/2020 Substance Abuse - Denies Substance Abuse, 08/04/2020 Tobacco Never (less than 100 in lifetime) Tobacco Use:. Never Smokeless Tobacco Use:., 09/21/2020 Family History Metastatic cancer: Sister. Immunizations Vaccine Date Status Comments influenza virus vaccine, inactivated 03/31/2020 Recorded pulled from external rx history [facility] Comment on above: Result Comment: Elec tronically Signed By: Jayshree CA MD\.br\Date and Time Signed: 09/21/20 13:43 EST Patient Letter FTon [address] [facility] (Inserted Image. Joy ble to display) September 21, 2020 KAYLEY SANDERSON [address] [place] [address] KAYLEY SANDERSON 1955 The above named person was unable to participate in aggressive physical activity June 2020, July 2020 and August 2020. Sincerely, Dr. Jayshree Ca MD General Surgery [facility] [facility] (Inserted Image. Un able to display) September 21, 2020 KAYLEY SANDERSON [address] [place] [address] KAYLEY SANDERSON 1955 To Whom It May Concern, The above named patient may return to work without restrictions on 10/04/20. Sincerely, Dr. Jayshree Ca MD General Surgery Normal [facility]30 SARS-CoV-2 (COVID-19) RNA SANJAY+probe Ql (Unsp spec) Not detected Normal NOT DETECTED [facility] Comment on above: Result Comment: This test is not yet approved or cleared by the [place] FDA. When there are no FDA-approved or cleared tests available, and other criteria are met, FDA can make tests available under an emergency access mechanism called an Emergency Use Authorization (EUA). The EUA for this test is supported by the [place] of Health and Human Service's (HHS's) declaration that circumstances exist to justify the emergency use of in vitro diagnostics for the detection and/or diagnosis of the virus that causes COVID-19. This EUA will remain in effect (meaning this test can be used) for the duration of the COVID-19 declaration justifying emergency of IVDs, unless it is terminated or revoked by FDA (after which the test may no longer be used). When diagnostic testing is negative, the possibility of a false negative should be considered in the context of a patient's recent exposures and the presence of clinical signs and symptoms consistent with SARS-CoV-2. Performed By: #### C [facility] #### [facility] [address] [place], [place] [id number] Lucrecia Bae Ambulatory Clinical Summaryo n 09-02-2020 Ambulatory Clinical Summary {[id number]}CD:61 4368 Normal [facility] General Surgery Office/Clini c Noteon 09-02-2020 General Surgery Office/Clinic Note HPI Staff 8 day post operative visit following right inguinal and epigastric hernia repair at [facility] . Completed pain medication prescribed at time of surgery. Is not currently taking anything for pain and states bowels are moving normal. Denies pain, redness or drainage at the incision site. History of Present Illness 8 days s/p RIHR with mesh and primary epigastric hernia repair; doing well, not taking any pain medication now, normal bms, no N/V; no drainage from incisions. not doing any strenuous activities. Review of Systems ROS - Provider Constitutional: no fever, no sweats, no weight loss. Eyes: no glasses, no blurred vision, no visual loss. ENMT: no dentures, no hoarseness, no swallowing difficulties, no hearing loss, no ear infection(s), no nose bleeds. Cardiovascular: normal blood pressure, no chest pain, regular heartbeat, no heart murmur. Respiratory: no shortness of breath, no cough, no asthma, no wheezing. Gastrointestinal: no nausea, no vomiting, no diarrhea, no constipation, no blood in stool, no change in bowel habits, mild abdominal pain, no hepatitis. Genitourinary: no kidney stones, no urine infection, no dysuria. Musculoskeletal: no pain, no weakness. Skin: no changing moles, no rash, no skin lumps. Neurologic: no seizures, no epilepsy, no headache. Psychiatric: no emotional or psychiatric problem. Heme/Lymph: no bleeding problems, no anemia, no blood clots, no transfusions. Allergy/Immunologic: no swollen lymph nodes/glands, no IV drug abuse. Other: Additional ROS info: Except as noted in the above Review of Systems and in the History of Present Illness, all other systems have been reviewed and are negative or noncontributory. Physical Exam abd: soft, normal bs, nondistended, incisions healing well, minimal induration, mild resolving ecchymoses. Assessment/Plan 1. Right inguinal hernia (K40.90: Unilateral inguinal hernia, without obstruction or gangrene, not specified as recurrent) doing well, continue no lifting > 10 lbs for an additional 3 weeks; follow up in 2 weeks, call sooner if problems/questions. 2. Epigastric hernia (K43.9: Ventral hernia without obstruction or gangrene) see # 1 Follow-up With When Contact Information Jayshree CA MD In [address] [place] [address]- Additional Instructions: Problem List/Past Medical History Ongoing BPH associated with nocturia Epigastric hernia History of nephrolithiasis Right inguinal hernia Umbilical hernia Historical No qualifying data Procedure/Surgical History Open repair of inguinal hernia (08/25/2020), Repair of epigastric hernia (08/25/2020), Colonoscopy (06/29/2017), Cystoscopy (05/30/2017), Ureteroscopy (04/29/2017), Arthroscopy of knee (10/28/2013), Repair of left inguinal hernia (07/30/1983). Medications No active medications Allergies Kenalog (Syncope) Social History Alcohol - Denies Alcohol Use, 08/04/2020 Substance Abuse - Denies Substance Abuse, 08/04/2020 Tobacco Never (less than 100 in lifetime) Tobacco Use:. Never Smokeless Tobacco Use:., 09/02/2020 Family History Metastatic cancer: Sister. Immunizations Vaccine Date Status Comments influenza virus vaccine, inactivated 03/31/2020 Recorded pulled from external rx history Normal [facility] Comment on above: Result Comment: Elec tronically Signed By: DERIK BRICE, Jayshree Solomon\Date and Time Signed: 09/02/20 11:20 EST Operative Reporton Operative Report [id number]:127 Normal [facility] Lab Reportson 08-23-2020 Lab Reports [id number]#1.00CD:127 [facility] Covid-19 PCR (CVD[facility])on 07-31 EUA Statement SEE BELOW Normal [facility] Comment on above: Result Comment: This test is not yet approved or cleared by the [place] FDA. When there are no FDA-approved or cleared tests available, and other criteria are met, FDA can make tests available under an emergency access mechanism called an Emergency Use Authorization (EUA). The EUA for this test is supported by the [employer] of Health and Human Service?s (HHS?s) declaration that circumstances exist to justify the emergency use of in vitro diagnostics for the detection and/or diagnosis of the virus that causes COVID-19. This EUA will remain in effect (meaning this test can be used) for the duration of the COVID-19 declaration justifying emergency of IVDs, unless it is terminated or revoked by FDA (after which the test may no longer be used). When diagnostic testing is negative, the possibility of a false negative should be considered in the context of a patients recent exposures and the presence of clinical signs and symptoms consistent with SARS-CoV-2. Performed By: #### C VDTB #### [facility] [address] [place] [address] Lucrecia Bae SARS-CoV-2 (COVID-19) RNA SANJAY+probe Ql (Unsp spec) Not detected Normal NOT DETECTED [facility] Comment on above: Result Comment: This test is not yet approved or cleared by the [facility] FDA. When there are no FDA-approved or cleared tests available, and other criteria are met, FDA can make tests available under an emergency access mechanism called an Emergency Use Authorization (EUA). The EUA for this test is supported by the [place] of Health and Human Service's (HHS's) declaration that circumstances exist to justify the emergency use of in vitro diagnostics for the detection and/or diagnosis of the virus that causes COVID-19. This EUA will remain in effect (meaning this test can be used) for the duration of the COVID-19 declaration justifying emergency of IVDs, unless it is terminated or revoked by FDA (after which the test may no longer be used). Performed By: #### C VDTB #### [facility] [address] [place], [place] [id number] Lucrecia Bae Consent for Procedure/Surger yon 08-06-2020 Consent for Procedure/Surgery [id number]:127 Normal [facility] Facesheeton 08-06-2020 Facesheet [id number]#[id number]:127 Normal [facility] Physician Orderon 08-06-2020 Physician Order [id number]:127 Normal [facility] Provider Letter FTMCon 08-06 Provider Letter FT (Inserted Image. Un able to display) BHAVESH LOPEZ, [address] [place] [address] Re: KAYLEY SANDERSON Date of : 1955 Thank you for your referral of Kayley Sanderson who was seen on consultation on August 04, 2020, for sore right inguinal hernia. A right inguinal herniorrhaphy with mesh is planned. I have enclosed my consultation notes for your review and will be happy to follow Kayley. Sincerely, Dr. Jayshree Ca MD General Surgery Normal [facility] Ambulatory Clinical Summaryo n 08-04-2020 Ambulatory Clinical Summary {[id number]}CD:61 4368 Normal [facility] General Surgery Office/Clini c Noteon 08-04-2020 General Surgery Office/Clinic Note Chief Complaint referral for [facility] Staff 65 year old male presents on consultation from Dr. Lopez for right inguinal hernia that extends into the scrotum. Presents since February. Ventral hernia as well. Present for roughly one year. Intermittent pain from both. Pain has increase since he has not worked over the past month. No use of pain medication. Denies nausea or vomiting. Bowels moving well. History of Present Illness 65 yo male with 5 month hi/o enlarging right inguinal hernia, small epigastric bulge, sore; unable to work past month due to increased pain with lifting; no skin changes, no N/V; no bowel changes; inguinal hernia now extends into scrotum, but he is able to reduce it when he is supine; only abdominal operation LIHR in 1983; denies asa or NSAID use, no tobacco use. no constipation. Review of Systems PHQ Score Initial Depression Screen Score: 0 ROS - Provider Constitutional: no fever, no sweats, no weight loss. Eyes: no glasses, no blurred vision, no visual loss. ENMT: no dentures, no hoarseness, no swallowing difficulties, no hearing loss, no ear infection(s), no nose bleeds. Cardiovascular: normal blood pressure, no chest pain, regular heartbeat, no heart murmur. Respiratory: no shortness of breath, no cough, no asthma, no wheezing. Gastrointestinal: no nausea, no vomiting, no diarrhea, no constipation, no blood in stool, no change in bowel habits, moderate abdominal pain, no hepatitis. Genitourinary: no kidney stones, no urine infection, no dysuria. Musculoskeletal: no pain, no weakness. Skin: no changing moles, no rash, no skin lumps. Neurologic: no seizures, no epilepsy, no headache. Psychiatric: no emotional or psychiatric problem. Heme/Lymph: no bleeding problems, no anemia, no blood clots, no transfusions. Allergy/Immunologic: no swollen lymph nodes/glands, no IV drug abuse. Other: Additional ROS info: Except as noted in the above Review of Systems and in the History of Present Illness, all other systems have been reviewed and are negative or noncontributory. Physical Exam Vitals & Measurements T: 36.7 ?C (Tympanic) HR: 68(Peripheral) RR: 16 BP: 118/60 HT: 182.9 cm HT: 182.88 cm WT: 75.3 kg WT: 75.3 kg BMI: 22.51 HEENT: normal conjunctiva, sclera clear, no scleral icterus, EOM intact, PERRLA, oral mucosa moist without lesions. Neck: trachea midline, no mass, symmetric, no thyromegaly or nodules, no adenopathy Respiratory: lungs CTA, respirations non labored. Cardiovascular: regular rate and rhythm, no murmur, no pedal edema or varicosities. Gastrointestinal: soft, non distended, no tenderness, no masses, 2 cm partially reducible epigastric hernia, no skin changes, mild tenderness, mild diastasis recti , large right inguinal-scrotal hernia, reducible, no skin changes, well-healed left inguinal scar, no recurrent herniano hepatosplenomegaly; normal bs Lymphatic: no cervical adenopathy, no axillary adenopathy, no inguinal adenopathy. Musculoskeletal: normal gait, digits and nails without infection, nodes, cyanosis, clubbing. Skin: no rashes, no lesions, no ulcers, no subcutaneous nodules, induration. Psychiatric/Neuro: oriented to time, place, person, judgement normal, affect appropriate for age, insight intact, no focal deficits. Tests: , review of old records completed, Discussed surgical options, risks, and possible complications with patient. Assessment/Plan 1. Right inguinal hernia (K40.90: Unilateral inguinal hernia, without obstruction or gangrene, not specified as recurrent) plan right inguinal herniorrhaphy with mesh insertion; primary repair of epigastric hernia, informed consent obtained; signs/symptoms of incarceration/strangulation of hernia explained in detail, and patient understands that he should seek prompt medical evaluation if they were to occur. patient understands the risks associated with COVID-19, and the need for preoperative testing with self-isolation until the procedure. Ancef 2 gms IV prior to OR SCDs 2. Epigastric hernia (K43.9: Ventral hernia without obstruction or gangrene) see # 1 Follow-up No qualifying data available Patient Education Inguinal Hernia, Adult, Care After Inguinal Hernia, Adult Problem List/Past Medical History Ongoing BPH associated with nocturia Epigastric hernia History of nephrolithiasis Right inguinal hernia Umbilical hernia Historical No qualifying data Procedure/Surgical History Colonoscopy (06/29/2017), Cystoscopy (05/30/2017), Ureteroscopy (04/29/2017), Arthroscopy of knee (10/28/2013), Repair of left inguinal hernia (07/30/1983). Medications No active medications Allergies Kenalog (Syncope) Social History Alcohol - Denies Alcohol Use, 08/04/2020 Substance Abuse - Denies Substance Abuse, 08/04/2020 Tobacco Never (less than 100 in lifetime) Tobacco Use:., 08/04/2020 Family History Metastatic cancer: Sister. Normal [facility] Comment on above: Result Comment: Elec tronically Signed By: DERIK BRICE, Jayshree Silverman.azam\Date and Time Signed: 08/04/20 17:49 EST Patient Educationon 08-04-19 21 Patient Education Family Medicine Inguinal Hernia, Adult Care After Refer to this sheet in the next few weeks. These discharge instructions provide you with general information on caring for yourself after you leave the hospital. Your caregiver may also give you specific instructions. Your treatment has been planned according to the most current medical practices available, but unavoidable complications sometimes occur. If you have any problems or questions after discharge, please call your caregiver. HOME CARE INSTRUCTIONS ? Put ice on the operative site. ? Put ice in a plastic bag. ? Place a towel between your skin and the bag. ? Leave the ice on for 15-20 minutes at a time, 3-4 times a day while awake. ? Change bandages (dressings ) as directed. ? Keep the wound dry and clean. The wound may be washed gently with soap and water. Gently blot or dab the wound dry. It is okay to take showers 24 to 48 hours after surgery. Do not take baths, use swimming pools, or use hot tubs for 10 days, or as directed by your caregiver. ? Only take [id number] or prescription medicines for pain, discomfort, or fever as directed by your caregiver. ? Continue your normal diet as directed. ? Do not lift anything more than 10 pounds or play contact sports for 3 weeks, or as directed. SEEK MEDICAL CARE IF: ? There is redness, swelling, or increasing pain in the wound. ? There is fluid (pus ) coming from the wound. ? There is drainage from a wound lasting longer than 1 day. ? You have an oral temperature above 102? F (38.9? C). ? You notice a bad smell coming from the wound or dressing. ? The wound breaks open after the stitches (sutures ) have been removed. ? You notice increasing pain in the shoulders (shoulder strap areas). ? You develop dizzy episodes or fainting while standing. ? You feel sick to your stomach (nauseous ) or throw up (vomit ). SEEK IMMEDIATE MEDICAL CARE IF: ? You develop a rash. ? You have difficulty breathing. ? You develop a reaction or have side effects to medicines you were given. MAKE SURE YOU: ? Understand these instructions. ? Will watch your condition. ? Will get help right away if you are not doing well or get worse. Document Released: 08/16/2007 Document Revised: 10/07/2012 Document Reviewed: 06/15/2010 ExitCare? Patient Information ?2013 [employer]. Inguinal Hernia, Adult Muscles help keep everything in the body in its proper place. But if a weak spot in the muscles develops, something can poke through. That is called a hernia . When this happens in the lower part of the belly (abdomen ), it is called an inguinal hernia. (It takes its name from a part of the body in this region called the inguinal canal.) A weak spot in the wall of muscles lets some fat or part of the small intestine bulge through. An inguinal hernia can develop at any age. Men get them more often than women. CAUSES In adults, an inguinal hernia develops over time. ? It can be triggered by: ? Suddenly straining the muscles of the lower abdomen. ? Lifting heavy objects. ? Straining to have a bowel movement. Difficult bowel movements (constipation ) can lead to this. ? Constant coughing. This may be caused by smoking or lung disease. ? Being overweight. ? Being . ? Working at a job that requires long periods of standing or heavy lifting. ? Having had an inguinal hernia before. One type can be an emergency situation. It is called a strangulated inguinal hernia. It develops if part of the small intestine slips through the weak spot and cannot get back into the abdomen. The blood supply can be cut off. If that happens, part of the intestine may . This situation requires emergency surgery. SYMPTOMS Often, a small inguinal hernia has no symptoms. It is found when a healthcare provider does a physical exam. Larger hernias usually have symptoms. ? In adults, symptoms may include: ? A lump in the groin. This is easier to see when the person is standing. It might disappear when lying down. ? In men, a lump in the scrotum. ? Pain or burning in the groin. This occurs especially when lifting, straining or coughing. ? A dull ache or feeling of pressure in the groin. ? Signs of a strangulated hernia can include: ? A bulge in the groin that becomes very painful and tender to the touch. ? A bulge that turns red or purple. ? Fever, nausea and vomiting. ? Inability to have a bowel movement or to pass gas. DIAGNOSIS To decide if you have an inguinal hernia, a healthcare provider will probably do a physical examination. ? This will include asking questions about any symptoms you have noticed. ? The healthcare provider might feel the groin area and ask you to cough. If an inguinal hernia is felt, the healthcare provider may try to slide it back into the abdomen. ? Usually no other tests are needed. TREATMENT Treatments can vary. The size of the hernia makes a difference. Options include: ? Watchful waiting. This is often suggested if the hernia is small and you have had no symptoms. ? No medical procedure will be done unless symptoms develop. ? You will need to watch closely for symptoms. If any occur, contact your healthcare provider right away. ? Surgery. This is used if the hernia is larger or you have symptoms. ? Open surgery. This is usually an outpatient procedure (you will not stay overnight in a hospital). An cut (incision ) is made through the skin in the groin. The hernia is put back inside the abdomen. The weak area in the muscles is then repaired by herniorrhaphy or hernioplasty. Herniorrhaphy: in this type of surgery, the weak muscles are sewn back together. Hernioplasty : a patch or mesh is used to close the weak area in the abdominal wall. ? Laparoscopy. In this procedure, a surgeon makes small incisions. A thin tube with a tiny video camera (called a laparoscope ) is put into the abdomen. The surgeon repairs the hernia with mesh by looking with the video camera and using two long instruments. HOME CARE INSTRUCTIONS ? After surgery to repair an inguinal hernia: ? You will need to take pain medicine prescribed by your healthcare provider. Follow all directions carefully. ? You will need to take care of the wound from the incision. ? Your activity will be restricted for awhile. This will probably include no heavy lifting for several weeks. You also should not do anything too active for a few weeks. When you can return to work will depend on the type of job that you have. ? During watchful waiting periods, you should: ? Maintain a healthy weight. ? Eat a diet high in fiber (fruits, vegetables and whole grains). ? Drink plenty of fluids to avoid constipation. This means drinking enough water and other liquids to keep your urine clear or pale yellow. ? Do not lift heavy objects. ? Do not stand for long periods of time. ? Quit smoking. This should keep you from developing a frequent cough. SEEK MEDICAL CARE IF: ? A bulge develops in your groin area. ? You feel pain, a burning sensation or pressure in the groin. This might be worse if you are lifting or straining. ? You develop a fever of more than 100.5? F (38.1? C). SEEK IMMEDIATE MEDICAL CARE IF: ? Pain in the groin increases suddenly. ? A bulge in the groin gets bigger suddenly and does not go down. ? For men, there is sudden pain in the scrotum. Or, the size of the scrotum increases. ? A bulge in the groin area becomes red or purple and is painful to touch. ? You have nausea or vomiting that does not go away. ? You feel your heart beating much faster than normal. ? You cannot have a bowel movement or pass gas. ? You develop a fever of more than 102.0? F (38.9? C). Document Released: 12/02/2009 Document Revised: 10/07/2012 Document Reviewed: 12/02/2009 ExitCare? Patient Information ?2013 [employer]. [facility] Physician Referralon 021 Physician Referral [phone] [id number] Normal [facility] BMPon 05-20-2017 Anion gap 3 molar conc 15 mmol/L Invalid Interpretation Code 10 - 20 mmol/L [facility] Calcium mass conc 9.0 mg/dL Invalid Interpretation Code 8.4 - 10.2 mg/dL [facility] Chloride molar conc 97 mmol/L Low 98 - 108 mmol/L [facility] Creatinine mass conc 1.34 mg/dL High 0.8 - 1 .3 mg/dL [facility] GFR/1.73 sq M predicted among non-blacks MDRD vol rate/area (S/P/Bld) The eGFR should be used for monitoring renal function only and not for medication dosing. Invalid Interpretation Code [facility] GFR/1.73 sq M.predicted CKD-EPI vol rate/area (S/P/Bld) 57 mL/min/1.73 m2 Low >=60 [facility] Glucose mass conc 130 mg/dL High 65 - 99 mg/dL [facility] HCO3 molar conc 30 mmol/L Invalid Interpretation Code 21 - 32 mmol/L [facility] Potassium molar conc 4.4 mmol/L Invalid Interpretation Code 3.5 - 5.1 mmol/L [facility] Sodium molar conc 138 mmol/L Invalid Interpretation Code 135 - 145 mmol/L [facility] Urea nitrogen mass conc 17 mg/dL Invalid Interpretation Code 8 - 25 mg/dL [facility] Urea nitrogen/Creatinine mass ratio 12.7 mg/mg Invalid Interpretation Code 10.0 - 20.0 [facility] CBC Auto Differentialon 04-30 Basophils Auto #/vol (Bld) 0.01 K/mcL Invalid Interpretation Code 0.00 - 0.30 [facility] Basophils/100 WBC Auto (Bld) 0.1 % Invalid Interpretation Code [facility] Eosinophils Auto #/vol (Bld) 0.05 K/mcL Invalid Interpretation Code 0.00 - 0.50 [facility] Eosinophils/100 WBC Auto (Bld) 0.7 % Invalid Interpretation Code [facility] Erythrocyte distribution width Auto Entitic volume (RBC) 12.3 % Invalid Interpretation Code 11.6 - 14.8 % [facility] Hematocrit Auto Volume Fraction (Bld) 40.1 % Low 41 - 53 % [facility] Hemoglobin mass conc (Bld) 14.1 g/dL Invalid Interpretation Code 13.5 - 17.5 g/dL [facility] Immature granulocytes #/vol (Bld) 0.02 K/mcL Invalid Interpretation Code 0.00 - 0.30 [facility] Immature granulocytes/100 WBC (Bld) 0.30 % Invalid Interpretation Code [facility] Comment on above: The IG parameter is the percentage of metamyelocytes, myelocytes, and promyelocytes. Interpretation and review of laboratory results Abnormal Invalid Interpretation Code [facility] Lymphocytes Auto #/vol (Bld) 0.78 K/mcL Low 0.90 - 4.00 [facility] Lymphocytes/100 WBC Auto (Bld) 11.2 % Invalid Interpretation Code [facility] MCH Auto Entitic mass (RBC) 30.5 pg Invalid Interpretation Code 26 - 34 pg [facility] MCHC Auto mass conc (RBC) 35.2 g/dL Invalid Interpretation Code 31 - 37 g/dL [facility] MCV Auto Entitic volume (RBC) 86.8 fL Invalid Interpretation Code 80 - 100 fL [facility] Monocytes Auto #/vol (Bld) 0.60 K/mcL Invalid Interpretation Code 0.30 - 0.90 [facility] Monocytes/100 WBC Auto (Bld) 8.6 % Invalid Interpretation Code [facility] Neutrophils Auto #/vol (Bld) 5.52 K/mcL Invalid Interpretation Code 1.70 - 7.00 [facility] Neutrophils/100 WBC Auto (Bld) 79.1 % Invalid Interpretation Code [facility] Nucleated RBC #/vol (Bld) 0.00 K/mcL Invalid Interpretation Code 0.00 - 0.00 [facility] Nucleated RBC/100 WBC Ratio (Bld) 0.0 % Invalid Interpretation Code [facility] Platelet mean volume Auto Entitic volume (Bld) 9.9 fL Invalid Interpretation Code 9 - 15.5 fL [facility] Platelets Auto #/vol (Bld) 187 K/mcL Invalid Interpretation Code 150 - 400 [facility] RBC Auto #/vol (Bld) 4.62 M/mcL Invalid Interpretation Code 4.50 - 5.90 [facility] WBC Auto #/vol (Bld) 6.98 K/mcL Invalid Interpretation Code 4.50 - 11.00 [facility] CBC w/ Diffon 05-20-2017 CBC w/ Diff The following orders were created for panel order CBC w/ Diff. Procedure Abnormality Status --------- ------ CBC Auto Differential[[id number]] Abnormal Final result Please view results for these tests on the individual orders. Invalid Interpretation Code [employer] Work Phone: CT ABDOMEN PELVIS WITH IV CO NTRAST ONLYon 05-20-2017 CT ABDOMEN PELVIS WITH IV CONTRAST ONLY EXAMINATION:CT ABDOMEN PELVIS WITH IV CONTRAST ONLYHISTORY:Abdominal pain. Recent diverticulitis.COMPARISON:N one.TECHNIQUE:Axial CT images of the abdomen and pelvis were obtained following administration of 75 mL of Isovue-370 intravenous contrast. Multiplanar 2D reconstructed images were obtained and reviewed.Dose reduction techniques were achieved by using: automated exposure control and/or adjustment of mA and/or kV according to patient size and/or use of iterative reconstruction technique.FINDINGS:LUNG BASES: Atelectasis noted. Granulomas noted. Normal heart size.LIVER/GALLBLADDER: No focal intrahepatic ductal dilation is seen. The portal veins are contrast opacified. No CT evidence for acute cholecystitis.SPLEEN: Normal size.STOMACH: Unremarkable.PANCREAS: No ductal dilation.ADRENAL GLANDS: Unremarkable bilaterally.KIDNEYS/URETERS : No right-sided hydronephrosis, hydroureter, or ureteral calculus. Multiple renal hypodensities are too small to be characterize by CT criteria. The left kidney is edematous. There is left-sided hydronephrosis and hydroureter to the level of the left proximal ureter where a 4 mm ureteral calculus is visualized. 7 mm indeterminate renal hypodensities seen in the upper pole of the left kidney. Additional indeterminate renal hypodensities are seen.URINARY BLADDER: Unremarkable.REPRODUCTIVE ORGANS: Unremarkable uterus. Please note that the adnexal structures are suboptimally evaluated on CT exam.BOWEL/APPENDIX: The rectum is decompressed and suboptimally evaluated. The decompressed portions of the large bowel loops are suboptimally evaluated on this exam. Moderate colonic stool burden noted. No obstruction is visualized. No CT evidence of acute appendicitis.PERITONEUM: No abscess or free air.ABDOMINAL AORTA: No evidence of aneurysm or dissection.SOFT TISSUE: Unremarkable.LYMPH NODES: No pathologically enlarged lymph nodes by CT size criteria.BONE: No acute osseous abnormality.IMPRESSION:4 mm ureteral calculus is seen within the left proximal ureter with left-sided hydronephrosis and hydroureter.Indeterminate renal hypodensities can be further evaluated with outpatient ultrasound or MRI exam.No CT evidence for acute diverticulitis./tdeWorkst ation ID: [id number] by: PAM WOO on [facility] May 19, 2017 11:39:51 PM EDTTranscribed by: SON SUAREZ on Sun May 20, 2017 12:18:04 AM EDTFinalized by: PAM WOO on Sun May 20, 2017 12:43:28 AM EDT [facility] Comment on above: Order Comment: Reaso n for exam?:Recent diverticulitis-pain returningInjury/Trauma or Illness?:Illness/OtherHow long have you had these symptoms (acute/chronic)?:AcuteType of Exam?:InitialAdditional signs and symptoms?:Recent diverticulitis-pain returning CT Abdomen Pelvis With IV Co ntrast Onlyon 05-20-2017 CT Abdomen Pelvis With IV Contrast Only EXAMINATION: CT ABDOMEN PELVIS WITH IV CONTRAST ONLY HISTORY: Abdominal pain. Recent diverticulitis. COMPARISON: None. TECHNIQUE: Axial CT images of the abdomen and pelvis were obtained following administration of 75 mL of Isovue-370 intravenous contrast. Multiplanar 2D reconstructed images were obtained and reviewed. Dose reduction techniques were achieved by using: automated exposure control and/or adjustment of mA and/or kV according to patient size and/or use of iterative reconstruction technique. FINDINGS: LUNG BASES: Atelectasis noted. Granulomas noted. Normal heart size. LIVER/GALLBLADDER: No focal intrahepatic ductal dilation is seen. The portal veins are contrast opacified. No CT evidence for acute cholecystitis. SPLEEN: Normal size. STOMACH: Unremarkable. PANCREAS: No ductal dilation. ADRENAL GLANDS: Unremarkable bilaterally. KIDNEYS/URETERS: No right-sided hydronephrosis, hydroureter, or ureteral calculus. Multiple renal hypodensities are too small to be characterize by CT criteria. The left kidney is edematous. There is left-sided hydronephrosis and hydroureter to the level of the left proximal ureter where a 4 mm ureteral calculus is visualized. 7 mm indeterminate renal hypodensities seen in the upper pole of the left kidney. Additional indeterminate renal hypodensities are seen. URINARY BLADDER: Unremarkable. REPRODUCTIVE ORGANS: Unremarkable uterus. Please note that the adnexal structures are suboptimally evaluated on CT exam. BOWEL/APPENDIX: The rectum is decompressed and suboptimally evaluated. The decompressed portions of the large bowel loops are suboptimally evaluated on this exam. Moderate colonic stool burden noted. No obstruction is visualized. No CT evidence of acute appendicitis. PERITONEUM: No abscess or free air. ABDOMINAL AORTA: No evidence of aneurysm or dissection. SOFT TISSUE: Unremarkable. LYMPH NODES: No pathologically enlarged lymph nodes by CT size criteria. BONE: No acute osseous abnormality. Invalid Interpretation Code [facility] CT Abdomen Pelvis With IV Contrast Only Interface, Rad In TotalHousehold - 05/20/2017 12:46 AM EDT EXAMINATION: CT ABDOMEN PELVIS WITH IV CONTRAST ONLY HISTORY: Abdominal pain. Recent diverticulitis. COMPARISON: None. TECHNIQUE: Axial CT images of the abdomen and pelvis were obtained following administration of 75 mL of Isovue-370 intravenous contrast. Multiplanar 2D reconstructed images were obtained and reviewed. Dose reduction techniques were achieved by using: automated exposure control and/or adjustment of mA and/or kV according to patient size and/or use of iterative reconstruction technique. FINDINGS: LUNG BASES: Atelectasis noted. Granulomas noted. Normal heart size. LIVER/GALLBLADDER: No focal intrahepatic ductal dilation is seen. The portal veins are contrast opacified. No CT evidence for acute cholecystitis. SPLEEN: Normal size. STOMACH: Unremarkable. PANCREAS: No ductal dilation. ADRENAL GLANDS: Unremarkable bilaterally. KIDNEYS/URETERS: No right-sided hydronephrosis, hydroureter, or ureteral calculus. Multiple renal hypodensities are too small to be characterize by CT criteria. The left kidney is edematous. There is left-sided hydronephrosis and hydroureter to the level of the left proximal ureter where a 4 mm ureteral calculus is visualized. 7 mm indeterminate renal hypodensities seen in the upper pole of the left kidney. Additional indeterminate renal hypodensities are seen. URINARY BLADDER: Unremarkable. REPRODUCTIVE ORGANS: Unremarkable uterus. Please note that the adnexal structures are suboptimally evaluated on CT exam. BOWEL/APPENDIX: The rectum is decompressed and suboptimally evaluated. The decompressed portions of the large bowel loops are suboptimally evaluated on this exam. Moderate colonic stool burden noted. No obstruction is visualized. No CT evidence of acute appendicitis. PERITONEUM: No abscess or free air. ABDOMINAL AORTA: No evidence of aneurysm or dissection. SOFT TISSUE: Unremarkable. LYMPH NODES: No pathologically enlarged lymph nodes by CT size criteria. BONE: No acute osseous abnormality. IMPRESSION: 4 mm ureteral calculus is seen within the left proximal ureter with left-sided hydronephrosis and hydroureter. Indeterminate renal hypodensities can be further evaluated with outpatient ultrasound or MRI exam. No CT evidence for acute diverticulitis. [employer] Workstation ID: [id number] Invalid Interpretation Code [facility] CT Abdomen Pelvis With IV Contrast Only 4 mm ureteral calculus is seen within the left proximal ureter with left-sided hydronephrosis and hydroureter. Indeterminate renal hypodensities can be further evaluated with outpatient ultrasound or MRI exam. No CT evidence for acute diverticulitis. [employer] Workstation ID: [id number] Invalid Interpretation Code [facility] Fluoroscopy Less Than 1 Hour on 05-20-2017 Fluoroscopy Less Than 1 Hour This is an auto finalized result. Please refer to patient chart for further information. Invalid Interpretation Code Patsnap [facility] Gold Topon 05-20-2017 Extra Tube Hold for add-ons. Invalid Interpretation Code [facility] Comment on above: Auto resulted. Light Blue Topon 05-20-2017 Extra Tube Hold for add-ons. Invalid Interpretation Code [facility] Comment on above: Auto resulted. [place] Drawon 05-20-2017 [place] Draw The following orders were created for panel order [place] Draw. Procedure Abnormality Status --------- ------ Gold Top[[id number]] Final result Light Blue Top[[id number]] Final result [place] Top[[id number]] Final result [place] Top[[id number]] Final result Please view results for these tests on the individual orders. Invalid Interpretation Code [employer] Work Phone: Urinalysison 05-20-2017 Bacteria Auto Ql (U) None Seen Invalid Interpretation Code None Seen /hpf [facility] Bilirubin Ql (U) Negative Invalid Interpretation Code Negative [facility] Clarity Refractometry automated Nom (U) Clear Invalid Interpretation Code Clear [facility] Color Auto Nom (U) Colorless Invalid Interpretation Code Colorless, Yellow [facility] Glucose Automated test strip mass conc (U) Negative Invalid Interpretation Code Negative mg/dL [facility] Hemoglobin Automated test strip Ql (U) Small Abnormal Negative [facility] Interpretation and review of laboratory results Abnormal Invalid Interpretation Code [facility] Ketones mass conc (U) Negative Invalid Interpretation Code Negative mg/dL [facility] Leukocyte esterase Automated test strip Ql (U) Negative Invalid Interpretation Code Negative [facility] Nitrite Automated test strip Ql (U) Negative Invalid Interpretation Code Negative [facility] pH Test strip (U) 5.0 [pH] Invalid Interpretation Code 5.0 - 7.0 [facility] Protein mass conc (U) Negative Invalid Interpretation Code Negative mg/dL [facility] RBC Auto #/area (Urine sed) 5 /hpf High 0 - 3 [facility] Specific gravity Automated test strip Relative Density (U) 1.028 1 High 1.005 - 1.025 [facility] Urobilinogen Test strip Qn (U) <2.0 Invalid Interpretation Code <2.0 mg/dL [facility] Urinalysis Microscopic examinat ion is performed on all urinalysis samples and only positive findings are reported. The test for blood on the chemical analytic portion of urinalysis may also be positive due to hemoglobinuria and myoglobinuria and if red blood cells are present they are quantified by microscopic examination. Invalid Interpretation Code [facility] XR FLUOROSCOPY LESS THAN ONE HOURon 05-20-2017 XR FLUOROSCOPY LESS THAN ONE HOUR This is an auto finalized result. Please refer to patient chart for further information. information. information. Normal [facility] Comment on above: Order Comment: Reaso n for exam?:STONEInjury/Trauma or Illness?:Illness/OtherHow long have you had these symptoms (acute/chronic)?:AcuteType of Exam?:InitialAdditional signs and symptoms?:STONEFluoro time in minutes:.52Fluoro dose in mGy?:4.88 Vital Signs Date Time Vital Sign Value Performing Clinician Facility 02-05-2025 13:26-0400 Body height 182.9 cm Alena Arriola DPM Work Phone: [facility] 02-05-2025 13:26-0400 Body mass index (BMI) [Ratio] 24.14 kg/m2 Alena Arriola DPM Work Phone: [facility] 02-05-2025 13:26-040 Body weight 80.74 kg Alena Arriola DPM Work Phone: [facility] 08-29-2024 10:07-0500 Body height 182.88 cm Bhavesh Ball DO Work Phone: [facility] 08-29-2024 10:07-0500 Body mass index (BMI) [Ratio] 24.4 kg/m2 Bhavesh Ball DO Work Phone: [facility] 08-29-2024 10:07-0500 Body weight 81.81 kg Bhavesh Ball DO Work Phone: [facility] 08-29-2024 10:07-0500 Diastolic blood pressure 76 mm[Hg] Bhavesh Ball DO Work Phone: [facility] 08-29-2024 10:07-0500 Heart rate 94 /min Bhavesh Ball DO Work Phone: [facility] 08-29-2024 10:07-0500 Respiratory rate 12 /min Bhavesh Ball DO Work Phone: [facility] 08-29-2024 10:07-0500 Systolic blood pressure 116 mm[Hg] Bhavesh Ball DO Work Phone: [facility] 02-18-2024 12:16-0400 Diastolic blood pressure 64 mm[Hg] DO Bhavesh Ball Work Phone: [facility] 02-18-2024 12:16-0400 Heart rate 65 /min DO Bhavesh Ball Work Phone: [facility] 02-18-2024 12:16-0400 Respiratory rate 16 /min DO Bhavesh Ball Work Phone: [facility] 02-18-2024 12:16-0400 SaO2% (BldA) [Mass fraction] 96 % DO Bhavesh Ball Work Phone: [facility] 02-18-2024 12:16-0400 Systolic blood pressure 105 mm[Hg] DO Bhavesh Ball Work Phone: [facility] 02-18-2024 10:20-0400 Inhaled oxygen flow rate 3 L/min DO Bhavesh Ball Work Phone: [facility] 02-18-2024 10:05-0400 Body temperature 97.3 [degF] DO Bhavesh Ball Work Phone: [facility] 02-18-2024 09:30-0400 Body mass index (BMI) [Ratio] 23.6 kg/m2 DO Bhavesh Ball Work Phone: [facility] 02-18-2024 07:02-0400 Body height 182.88 cm DO Bhavesh Ball Work Phone: [facility] 02-18-2024 07:02-0400 Body weight 79 kg DO Bhavesh Ball Work Phone: [facility] 01-11-2024 10:38-0400 Body height 182.88 cm DO Bhavesh Ball Work Phone: [facility] 01-11-2024 10:38-0400 Body mass index (BMI) [Ratio] 23.9 kg/m2 DO Bhavesh Ball Work Phone: [facility] 01-11-2024 10:38-0400 Body weight 80 kg DO Bhavesh Ball Work Phone: [facility] 01-11-2024 10:38-0400 Diastolic blood pressure 74 mm[Hg] DO Bhavesh Ball Work Phone: [facility] 01-11-2024 10:38-0400 Heart rate 82 /min DO Bhavesh Ball Work Phone: [facility] 01-11-2024 10:38-0400 Respiratory rate 12 /min DO Bhavesh Ball Work Phone: [facility] 01-11-2024 10:38-0400 Systolic blood pressure 119 mm[Hg] DO Bhavesh Ball Work Phone: [facility] 01-03-2024 10:09-0400 Body height 182.88 cm DO Bhavesh Ball Work Phone: [facility] 01-03-2024 10:09-0400 Body mass index (BMI) [Ratio] 23.3 kg/m2 DO Bhavesh Ball Work Phone: [facility] 01-03-2024 10:09-0400 Body weight 78.01 kg DO Bhavesh Ball Work Phone: [facility] 09-20-2023 09:10-0500 Body height 182.88 cm [facility] 09-20-2023 09:10-0500 Body mass index (BMI) [Ratio] 23.6 kg/m2 [facility] 09-20-2023 09:10-0500 Body weight 78.98 kg [facility] 09-20-2023 09:10-0500 Diastolic blood pressure 69 mm[Hg] [facility] 09-20-2023 09:10-0500 Heart rate 98 /min [facility] 09-20-2023 09:10-0500 Respiratory rate 12 /min [facility] 09-20-2023 09:10-0500 Systolic blood pressure 113 mm[Hg] [facility] 06-19-2023 13:45-0500 Body height 182.88 cm Bhavesh Ball Other [facility] [employer] Other 06-19-2023 13:45-0500 Body mass index (BMI) [Ratio] 23.68 kg/m2 Bhavesh Ball Other [employer] Other 06-19-2023 13:45-0500 Body weight 79.2 kg Bhavesh Ball Other [employer] Other 06-19-2023 13:45-0500 Diastolic blood pressure 83 mm[Hg] Bhavesh Ball Other [employer] Other 06-19-2023 13:45-0500 Respiratory rate 12 /min Bhavesh Ball Other [employer] Other 06-19-2023 13:45-0500 Systolic blood pressure 138 mm[Hg] Bhavesh Ball Other [employer] Other 03-30-2023 11:15-0400 Body height 182.88 cm Siria Faust Other [employer] Other 03-30-2023 11:15-0400 Body mass index (BMI) [Ratio] 23.46 kg/m2 Siria Faust Other [employer] Other 03-30-2023 11:15-0400 Body weight 78.47 kg Siria Faust Other [employer] Other 03-30-2023 11:15-0400 Diastolic blood pressure 72 mm[Hg] Siria Faust Other [employer] Other 03-30-2023 11:15-0400 Systolic blood pressure 116 mm[Hg] Siria Faust Other [employer] Other 05-20-2017 15:55-0400 Body Temperature 98.2 [degF] [facility] 05-20-2017 15:55-0400 BP Diastolic 65 mm[Hg] [facility]: 05-20-2017 15:55-0400 BP Systolic 112 mm[Hg] [facility]: 05-20-2017 15:55-0400 Pulse Oximetry 98 % [facility]: 05-20-2017 15:55-0400 Respiratory Rate 12 /min [facility]: 05-20-2017 15:30-0400 Pulse (Heart Rate) 84 /min [facility]: 05-19-2017 22:06-0400 BMI (Body Mass Index) 24.14 kg/m2 [facility]: 05-19-2017 22:06-0400 Height 182.9 cm [facility]: 05-19-2017 22:06-0400 Weight 80.74 [facility] Encounters Encounter Date Encounter Type Care Provider Facility Start: 02-05-2025 End: 02-05-2025 ambulatory ALENA ARRIOLA Not Available Start: 02-05-2025 End: 02-05-2025 Bamboo flowsheet Alena Arriola DPM Work Phone: [facility] Start: 02-05-2025 End: 02-05-2025 Bamboo flowsheet Alena Arriola DPM Work Phone: [facility] Start: 02-05-2025 End: 02-05-2025 Office outpatient new 45 minutes Alena Arriola DPM Work Phone: [facility] Comment on above: Pain in joint of lef t foot (Primary Dx); Arthritis of right foot; Peroneal tendonitis, left; Left foot pain Start: 02-05-2025 End: 02-05-2025 ambulatory ALENA ARRIOLA Not Available Start: 11-26-2024 End: 11-26-2024 ambulatory Bhavesh Ball DO Work Phone: [facility] Work Phone: Start: 11-26-2024 End: 11-26-2024 Patient encounter procedure Bhavesh Ball DO Work Phone: [facility] Work Phone: Start: 08-29-2024 End: 08-29-2024 ambulatory Bhavesh Ball DO Work Phone: [facility] Work Phone: Start: 08-29-2024 End: 08-29-2024 Patient encounter procedure Bhavesh Ball DO Work Phone: [facility] Work Phone: Start: 08-26-2024 End: 08-26-2024 Patient encounter procedure Bhavesh Ball DO Work Phone: [facility] Work Phone: Start: 08-26-2024 End: 08-26-2024 ambulatory Bhavesh Ball DO Work Phone: [facility] Work Phone: Start: 05-14-2024 End: 05-14-2024 ambulatory DO Bhavesh Ball Work Phone: [facility] Work Phone: Start: 05-14-2024 End: 05-14-2024 Patient encounter procedure DO Bhavesh Ball Work Phone: [facility] Work Phone: Start: 05-14-2024 End: 05-14-2024 Patient encounter procedure DO Bhavesh Ball Work Phone: [facility] Start: 05-14-2024 End: 05-14-2024 ambulatory DO Bhavesh Ball Work Phone: [facility] Work Phone: Start: 04-02-2024 End: 04-02-2024 ambulatory DO Bhavesh Ball Work Phone: [facility] Work Phone: Start: 04-02-2024 End: 04-02-2024 Patient encounter procedure DO Bhavesh Ball Work Phone: [facility] Work Phone: Start: 2024 End: 2024 ambulatory DO Bhavesh Ball Work Phone: [facility] Work Phone: Start: 2024 End: 2024 Patient encounter procedure DO Bhavesh Ball Work Phone: [facility] Work Phone: Start: 02-18-2024 Non-patient / Non-visit DO Richar surya Ball Work Phone: [facility] Work Phone: Start: 02-18-2024 End: 02-18-2024 Admission to same day surgery center DO Bhavesh Ball Work Phone: [facility] [place] Start: 02-18-2024 End: 02-18-2024 ambulatory DO Bhavesh Ball Work Phone: [facility] Work Phone: Start: 02-14-2024 End: 02-14-2024 Discharged Recurring DO Bhavesh Ball Work Phone: [facility] Start: 02-14-2024 Registered Recurring DO Benjam in Ball Work Phone: [facility] Start: 02-14-2024 End: 02-14-2024 ambulatory DO Bhavesh Ball Work Phone: [facility] Work Phone: Start: 02-08-2024 End: 02-08-2024 ambulatory DO Bhavesh Ball Work Phone: [facility] Work Phone: Start: 02-08-2024 End: 02-08-2024 Patient encounter procedure DO Bhavesh Ball Work Phone: [facility] Work Phone: Start: 02-07-2024 End: 02-07-2024 ambulatory DO Bhavesh Ball Work Phone: [facility] Work Phone: Start: 02-07-2024 End: 02-07-2024 Patient encounter procedure DO Bhavesh Ball Work Phone: [facility] Work Phone: Start: 02-07-2024 End: 02-07-2024 Patient encounter procedure DO Bhavesh Ball Work Phone: [facility] Start: 02-07-2024 End: 02-07-2024 ambulatory DO Bhavesh Ball Work Phone: [facility] Work Phone: Start: 02-01-2024 End: 02-01-2024 Patient encounter procedure DO Bhavesh Ball Work Phone: [facility] Work Phone: Start: 02-01-2024 End: 02-01-2024 ambulatory DO Bhavesh Ball Work Phone: [facility] Work Phone: Start: 02-01-2024 Encounter for preprocedural laboratory examination Rakan Morton II [facility] Start: 01-11-2024 End: 01-11-2024 ambulatory DO Bhavesh Ball Work Phone: [facility] Work Phone: Start: 01-11-2024 End: 01-11-2024 Patient encounter procedure DO Bhavesh Ball Work Phone: [facility] Work Phone: Start: 01-03-2024 End: 01-03-2024 Patient encounter procedure DO Bhavehs Ball Work Phone: [facility] Start: 01-03-2024 End: 01-03-2024 ambulatory DO Bhavesh Ball Work Phone: [facility] Work Phone: Start: 01-03-2024 End: 01-03-2024 ambulatory DO Bhavesh Ball Work Phone: [facility] Work Phone: Start: 01-03-2024 End: 01-03-2024 Patient encounter procedure DO Bhavesh Ball Work Phone: [facility] Work Phone: Start: 01-03-2024 End: 01-03-2024 Patient encounter procedure DO Bhavesh Ball Work Phone: [facility] Start: 01-03-2024 End: 01-03-2024 ambulatory DO Bhavesh Ball Work Phone: [facility] Work Phone: Start: 09-20-2023 End: 09-20-2023 ambulatory [facility] Work Phone: Start: 09-20-2023 End: 09-20-2023 Encounter for general adult medical examination without abnormal findings [facility] Start: 09-20-2023 End: 09-20-2023 Patient encounter procedure [facility] Work Phone: Start: 06-19-2023 End: 06-19-2023 ambulatory Bhavesh Ball Other [facility] [employer] Other Start: 06-19-2023 Office outpatient vi sit 15 minutes Bhavesh Ball [facility] Start: 03-30-2023 End: 03-30-2023 ambulatory Siria Faust Other [employer] Other Start: 03-30-2023 Office outpatient vi sit 15 minutes Siria Faust [facility] Start: 05-31-2021 End: 05-31-[address] LIDIA MANZANARES Facility:[facility] Start: 09-15-2020 End: 09-15-2020 ambulatory KAYLEY FERNANDEZ JR Facility:[facility] Start: 09-11-2020 End: 09-11-2020 ambulatory KAYLEY FERNANDEZ JR Facility:[facility] Start: 08-26-2020 Encounter for preprocedural laboratory examination DR JAYSHREE CA [facility] Start: 08-25-2020 End: 08-25-[address] JAYSHREE CA Facility:[facility] Start: 08-21-2020 End: 08-21-[address] JAYSHREE CA Facility:[facility] Start: 08-21-2020 End: 08-21-2020 Encounter for preprocedural laboratory examination DR JAYSHREE CA Facility:[facility] Start: 08-18-2020 Encounter for other preprocedural examination DR JAYSHREE CA [facility] Start: 08-12-2020 End: 08-13-[address] JAYSHREE CA Facility:[facility] Start: 08-12-2020 End: 08-13-2020 Encounter for other preprocedural examination DR JAYSHREE CA Facility:[facility] Start: 05-20-2017 End: 05-20-2017 Ambulatory BHAVESH Abdias LOPEZ [facility] Start: 05-19-2017 End: 05-20-2017 Emergency department patient visit Joseph Ray Work Phone: [facility] Comment on above: Ureteral stone with hydronephrosis (Primary Dx) Start: 01-19-2017 End: 01-19-2017 Ambulatory LESLEE WOLFF (PA) [facility] Procedures Date Procedure Procedure Detail Performing Clinician Start: 02-05-2025 Radex foot complete minimum 3 views Alena Arriola DPM Work Phone: Start: 11-26-2024 X-ray of right knee, three views Bhavesh Ball DO Work Phone: Start: 08-26-2024 X-ray of right knee, two views Bhavesh Ball DO Work Phone: Start: 05-14-2024 Plain X-ray of right femur DO Bhavesh Ball Work Phone: Start: 05-14-2024 Plain X-ray of right tibia and right fibula DO Bhavesh Ball Work Phone: Start: 05-14-2024 X-ray of right knee, two views DO Bhavesh Ball Work Phone: Start: 04-02-2024 X-ray of right knee DO Bhavesh Ball Work Phone: Start: 02-18-2024 X-ray of right knee DO Bhavesh Ball Work Phone: Start: 02-18-2024 Total replacement of right knee joint DO Bhavesh Ball Work Phone: Start: 02-07-2024 Plain X-ray of right femur DO Bhavesh Ball Work Phone: Start: 02-07-2024 Plain X-ray of right tibia and right fibula DO Bhavesh Ball Work Phone: Start: 02-01-2024 Antibody screen Sampson Lopez Comment on above: Order Comment: Date of Surgery: [id number] Result Comment: PERF ORMED BY: [address] [place] [address] PATHOLOGIST [employer] CHANGER AVERY HAWKINS M.D. Start: 01-03-2024 Methicillin resistan t Staphylococcus aureus culture DO Bhavesh Ball Work Phone: Start: 01-03-2024 X-ray of right knee DO Bhavesh Ball Work Phone: Start: 05-10-2017 Diabetes mellitus screening Siria Faust Other Start: 05-10-2017 Hyperlipidemia screening Siria Faust Other Start: 05-10-2017 Screening for malign ant neoplasm of colon Siria Faust Other Start: 05-10-2017 Screening for malign ant neoplasm of prostate Siria Govind Other Plan of Treatment Date Care Activity Detail Author Start: 03-30-2025 Influenza vaccination Influenza Vacc ine (#1) [facility] Start: 03-03-2025 End: 03-03-2025 Patient encounter procedure 03/03/2025 11:00 AM EDT Office Visit [facility] [address] [place] [address] Alena Arriola, DPM [address] [place], [place] [id number] [facility] Start: 02-17-2025 End: 02-17-2025 Patient encounter procedure 02/17/2025 1:00 PM EDT Office Visit [facility] [address] [place] [id number] William Smith DPM [address] [place] [address] [facility] Start: 02-05-2025 End: 02-05-2025 Patient encounter procedure 02/05/2025 1:15 PM EDT Office Visit [facility] [address] [place] [address] Alena Arriola, DPM [address] [place] [address] Arrived [facility] Comment on above: Arrived Start: 11-26-2024 X-ray of right knee, three views XR knee RT 3V - NOT FOR ER USE [facility] Start: 11-26-2024 XR Knee - right 3 Views [facility] Start: 08-26-2024 X-ray of right knee, two views XR knee RT 2V [facility] Start: 08-26-2024 XR Knee - right 2 Views [facility] Start: 05-14-2024 Plain X-ray of right femur XR femur RT 2V* [facility] Start: 05-14-2024 Plain X-ray of right tibia and right fibula XR tibia fibula RT 2V* [facility] Start: 05-14-2024 X-ray of right knee, two views XR knee RT 2V [facility] Start: 05-14-2024 XR Femur - right 2 Views [facility] Start: 05-14-2024 XR Knee - right 2 Views [facility] Start: 05-14-2024 XR Tibia and Fibula - right 2 Views [facility] Start: 04-02-2024 X-ray of right knee XR knee RT 3V - NOT FOR ER USE [facility] Start: 04-02-2024 XR Knee - right 3 Views [facility] Start: 02-18-2024 [facility] Start: 02-18-2024 Hospital admission [facility] Start: 02-18-2024 [facility] Start: 02-07-2024 Plain X-ray of right femur XR femur RT 2V* [facility] Start: 02-07-2024 Plain X-ray of right tibia and right fibula XR tibia fibula RT 2V* [facility] Start: 02-07-2024 XR Femur - right 2 Views [facility] Start: 02-07-2024 XR Tibia and Fibula - right 2 Views [facility] Start: 02-01-2024 [facility] Start: 01-03-2024 MRSA Culture MRSA Culture [facility] Start: 01-03-2024 Methicillin resistan t Staphylococcus aureus [Presence] in Unspecified specimen by Organism specific culture [facility] Start: 01-03-2024 [facility] Start: 01-03-2024 Pelvis X-ray XR pelvis 1-2V [facility] Start: 01-03-2024 X-ray of right knee XR knee RT 4V* [facility] Start: 01-03-2024 XR Knee - right 4 Views [facility] Start: 01-03-2024 XR Pelvis 1 or 2 Views [facility] Start: 03-30-2017 Influenza vaccination SEQUENTI AL INFLUENZA VACCINE (#1) [facility] Work Phone: Start: 2016 Zoster vaccine hzv l doreen for subcutaneous use ZOSTER VACCINE [facility] Work Phone: Start: 2006 Pneumococcal Vaccine : 65+ Years (1 of 1 - PCV) Pneumococcal Vaccine: 65+ Years (1 of 1 - PCV) [facility] Start: 1955 Screening for malign ant neoplasm of colon [facility] Start: 1955 HEPATITIS C SCREENING HEPATITIS C SC REENING [facility] Work Phone: Start: 1955 Screening colonoscopy COLONOSCOPY [facility] Work Phone: Start: 1955 Tetanus vaccination TETANUS EVERY 10 YR [facility] Work Phone: Comprehensive metabo lic 2000 panel - Serum or Plasma [facility] Cotinine [Mass/volum e] in Serum or Plasma [facility] End: 05-20-2017 ECG 12 Lead ECG 12 Lead Routine Once for 1 Occurrences starting 05/20/2017 until 05/20/2017 [facility] Work Phone: Comment on above: Once for 1 Occurrenc es starting 05/20/2017 until 05/20/2017 Glucose measurement estimated from glycated hemoglobin [facility] Nicotine [Mass/volum e] in Serum or Plasma [facility] Patient Education Know your Meds [facility] Work Phone: [facility] Immunizations Immunization Date Immunization Notes Care Provider Fa samy 05-23-2023 COVID-19 (PFIZER) 12Y and older DO Bhavesh Lopez Work Phone: [facility] 05-23-2023 influenza virus vaccine, unspecified formulation Alena Arriola DPM Work Phone: [facility] 06-01-2022 influenza virus vaccine, split virus (incl. purified surface antigen) Siria Faust Other [employer] Other 06-01-2022 influenza virus vaccine, unspecified formulation [facility] 06-28-2021 COVID-19 mRNA, Comirnaty (Pfizer) DO Bhavesh Lopez Work Phone: [facility] 10-30-2020 COVID-19 Vaccine Pfizer - Documentation Purposes Only Siria Faust Other [facility] 10-09-2020 COVID-19 mRNA, Comirnaty (Pfizer) DO Bhavesh Lopez Work Phone: [facility] 06-01-2020 tetanus toxoid, adsorbed Siria Faust Other [facility] 05-20-2017 influenza, injectabl e, quadrivalent, preservative free; Translations: [INFLUENZA IIV4 3YO OR > FLUARIX/FLUZONE/AFLURI A 48188] [facility] Work Phone: 05-20-2017 flu vaccine qv 2017 (FLUZONE QUAD/FLUARIX QUAD) syringe 0.5 mL 0.5 mL, Intramuscular, Prior To Discharge, administer vaccine prior to discharge, ., Starting 05/20/17 at 0254, For 1 dose Given 05/20/2017 17:51 EDT 0.5 mL Left Deltoid; Translations: [Flu Vaccine [id number](36 Mos Up)(Pf)60 McG(15 McGx4)/0.5 Ml Im Syringe] [facility] Work Phone: Payers Date Payer Category Payer Self-pay [id number] 2022 Private Health Insurance [employer] [id number] 2022 Private Health Insurance [id number] 1959 Unknown [id number] 1956 Unknown [id number] 2.16.840.1.298984.3.579. 2.593 1956 Unknown [id number] 2.16.840.1.220992.3.579. 2.593 1956 Unknown [id number] 2.16.840.1.485821.3.579. 2.593 1956 Unknown [id number] 2.16.840.1.748893.3.579. 2.593 1956 Unknown [id number] 2.16.840.1.375561.3.579. 2.593 1956 Unknown [id number] 2.16.840.1.413977.3.579. 2.593 1956 Unknown [id number] 2.16.840.1.317749.3.579. 2.1259 1956 Unknown [id number] 2.16.840.1.230873.3.579. 2.1259 Unknown [id number] 2.16.840.1.864333.3.579. 2.531 Unknown [id number] 2.16.840.1.968083.3.579. 2.531 Unknown [id number] 2.16.840.1.764177.3.579. 2.531 Unknown [id number] 2.16.840.1.480186.3.579. 2.531 Unknown [id number] 2.16.840.1.793924.3.579. 2.531 Unknown [id number] 2.16.840.1.877081.3.579. 2.531 Unknown [id number] 2.16.840.1.291355.3.579. 2.531 Unknown [id number] 2.16.840.1.735682.3.579. 2.531 Unknown [id number] 2.16.840.1.031250.3.579. 2.531 Unknown [id number] 2.16.840.1.081543.3.579. 2.531 Social History Date Type Detail Facility Start: 05-20-2017 End: 02-05-2025 Tobacco smoking status MEIS Never smoker [facility] Start: 1955 Sex Assigned At Not on file [facility] [employer] Work Phone: Start: 02-05-2025 Sex Assigned At N [employer] Other Start: 1955 Sex Assigned At Male F [facility] Start: 08-26-2024 End: 11-27-2024 Sex Male (finding) [facility] Tobacco smoking status MEIS Tobacco smoking consumption unknown [facility] Start: 02-05-2025 Alcoholic beverage intake Current drinker of alcohol (finding) [facility] Start: 02-05-2025 Alcoholic beverage intake [facility] Start: 02-05-2025 Alcohol Comment 1-2x monthly [facility] Medical [facility] Procedure Code Equipment Code Equipment Origin al Text Equipment Identifier Dates Arthroplasty, knee, total, minimally invasive Uncoated unicondylar knee femur prosthesis [id number] FDA Start: 02-18-2024 Arthroplasty, knee, total, minimally invasive Uncoated unicondylar knee tibia prosthesis, metallic ()[id number] FDA Start: 02-18-2024 Arthroplasty, knee, total, minimally invasive Unicondylar knee insert [id number] FDA Start: 02-18-2024 Arthroplasty, knee, total, minimally invasive Orthopaedic cement, non-medicated ()[id number] Start: 02-18-2024 Stent 4.8fr X 22-30cm Contour Pilar Length - [id number] Start: 05-20-2017 Goals Date Patient Goal Desired Activity /State Clinical Notes 08-25-2020 to 02-05-2025 Alena Arriola, VIELKA - 02/05/2025 1:15 PM EDT Note Date & Type Note Facility 02-05-2025 History of Presen t illness Narrative Images from the original note were not included. Subjective Patient ID: Kayley Sanderson is a 69 y.o. male who presents for Foot Pain (Kayley Sanderson 69yo New Patient presents with Left, lateral side,foot pain. Patient admits multiple fractures, sprains, with several casts in the late 1969's. Pain started 01/30/2025, NKI, noticed while walking, pain is constant, less when elevating, icing. 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 SS 10.5). HPI Patient presents [...] does wear custom inserts and typically wears Sk[employer]brace+er tennis shoes to work Review of Systems [...] also reviewed the diagnosis of peroneal tendonitis. Stress the importance of good supportive tie shoes, dispensed information on [employer] and [employer] to be fit and measured for shoes. Pt wears custom inserts, he tried on powersteps today and liked them, they felt comfortable, these were dispensed to him. Advise no flip flops, slippers nor bare feet, wear supportive shoes and inserts with all [...] corrected. Thank you for your understanding. Alena Arriola DPM documented in this encounter [facility] 08-29-2024 Evaluation note Diagnosis Onset Date Resolution BPPV (benign paroxysmal positional vertigo) noneactive July 10:00am Dehydration noneactive August 29, 2024 10:00am Aftercare following right knee joint replacement surgery acute November 26, 2024 8:11am Status post right knee replacement acute November 26, 2024 8:11am [facility] Work Phone: 1(840) 348-952801-28-2025 Evaluation note* Diagnosis Onset Date Resolution Status Admit Date Aftercare following right kn ee joint replacement surgery acute 2024 9:58am Status post right knee replacement acute August 26 9:58am [facility] Work Phone: 1(264) 649-967811-21-2023 Evaluation note* Encounter Date Diagnosis Assessment Notes Treatment Notes Treatment Clinical Notes May, Xerosis of skin (ICD-10 - L85.3) Start using Dove soap. List of moisturizers daily Avoid hot baths Doubt antihistamines [employer] Other 09-01-2023 Evaluation note* Encounter Date Diagnosis Assessment Notes Treatment Notes Treatment Clinical Notes Mar, Abrasion (ICD-10 - T14.8XXA) No evidence of periorbital cellulitis, orbital cellulitis, dacryocystitis, or retrobulbar abscess. Mostly sysmptoms are consistent with an abrasion due to recent injury. Exam is not consistent with noninfectious etiology. Will treat with RX antibioitc ointment,. Warm compresses as needed. Pt given strict return precautions and when to follow-up and when to go to the ER. He understands and agrees with the plan. Mar, Eye irritation (ICD-10 - H57.89) [employer] Other 02-17-2021 NoteOPERATIVE NOTE OPERATION DATE: 09-15-20 ANESTHETIC:MAC, propofol per the anesthesia department. PREOPERATIVE DIAGNOSIS:Screening for personal history of colon polyps. POSTOPERATIVE DIAGNOSIS: 1. Small sessile polyp in the ascending colon removed with cold biopsy and retrieved. 2. Mild sigmoid diverticulosis. PROCEDURE NAME:Colonoscopy to the terminal ileum with cold biopsy polypectomy. INDICATIONS: O2 oximetry. Hemodynamic monitoring performed, pre, during and post procedure. The patient was identified, H AND P completed. The patient was given full explanation of the procedure as well as associated risks and written consent was obtained prior to the procedure. The patient expressed complete understanding of the procedure as well as alternatives to the procedure and anesthesia and agreed to proceed with the procedure as indicated. The patient was immediately reassessed prior to IV sedation. PROCEDURE: Following IV sedation, the patient was placed in the left lateral decubitus position. A digital rectal exam was performed which did not demonstrate any masses. The videocolonoscope was subsequently inserted and passed proximally. Upon advancement, there was mild sigmoid diverticulosis without evidence of diverticulitis. The colonoscope was advanced over to the right side, the ileocecal valve, cecal floor and appendiceal orifice were identified. The terminal ileum was cannulated. The colonoscope was then withdrawn through the ascending colon. There was noted to be a small sessile polyp, this was removed with cold biopsy and retrieved. The colonoscope was then continued to be withdrawn through the hepatic flexure, transverse colon, splenic flexure, descending colon and into the sigmoid colon. The colonoscope was withdrawn into the rectum, retroflexion was performed which demonstrated no significant hemorrhoids. The colonoscope was then straightened and removed. Following a period of recovery, the patient was seen, given full explanation of the procedure. The patient tolerated the procedure well and may be discharged when in satisfactory, stable and ambulatory condition. RECOMMENDATIONS: 1. Await pathology results. 2. Colonoscopy will be recommended in 5 years. [facility] Signed and Approved by: KAYLEY FERNANDEZ JR 09/16/2020 12:58:00[facility]01-27-2021 NoteOPERATIVE NOTE OPERATION DATE: 08/25/2020 PREOPERATIVE DIAGNOSES: 1. Reducible right inguinal hernia. 2. Epigastric hernia. POSTOPERATIVE DIAGNOSES: 1. Right indirect inguinal hernia. 2. Small epigastric hernia. PROCEDURE: Right inguinal herniorrhaphy with mesh insertion and primary epigastric hernia repair. SURGEON: Jayshree Ca M.D. ANESTHESIA: General endotracheal as well as local with Exparel solution which was a combination of Exparel and 0.25% Marcaine. ESTIMATED BLOOD LOSS: Less than 20 mL. INDICATIONS AND CONSENT: Patient is a 65-year-old male with long history of enlarging right inguinal hernia that has been increasingly symptomatic as well as enlarging epigastric hernia that is partially reducible. The inguinal hernia is reducible. The indications, risks, benefits and alternatives of proceeding with herniorrhaphy with mesh insertion as well as primary epigastric hernia repair were explained extensively to the patient including the risks of bleeding, infection, scarring, pain, recurrence, nerve injury, testicular injury, blood clot, pulmonary embolus, heart attack, anesthetic complications, the need for further surgery or mesh removal, or risks associated with COVID-19 infection. All of his questions were answered. Informed consent was obtained. DESCRIPTION OF PROCEDURE: Patient brought to the operating room and placed in the supine position. General anesthesia was induced. He was prepped and draped in the usual sterile fashion. A right groin incision was made with a scalpel then carried down through subcutaneous tissue using blunt dissection. Luz Elena's fascia was divided. The external oblique was opened along the direction of its fibers down through the external inguinal ring. The cord structures were mobilized and retracted with a [place] drain. There was noted to be an indirect sac as well as a cord lipoma. These were carefully dissected free from the cord structures and reduced back through the internal ring. The wound was irrigated. There was good hemostasis. The patch was then trimmed and placed to the floor of the inguinal canal. A keyhole was created for the cord structures. The patch was then secured circumferentially using interrupted 2-0 Prolene sutures. The arms were placed around the cord structures and secured. Care was taken to avoid undue tension on the cord structures. The wound was irrigated with antibiotic saline. External oblique was closed with a running 3-0 Vicryl suture. The subcutaneous tissues were infiltrated with the Exparel solution. Luz Elena's fascia was reapproximated with interrupted 3-0 Monocryl suture. The skin was then closed with a running 4-0 subcuticular Monocryl suture. Attention was then turned to the epigastric hernia where a transverse incision was made over the area of the palpable hernia above the umbilicus. It was carried down through subcutaneous tissue using sharp dissection as well as electrocautery. There was approximately a 2 cm globule of preperitoneal fat as well as a smaller area of fat adjacent to it that were reduced back through a 5 mm defect. The remaining fascia was intact. Defect was then closed with several interrupted 0 Prolene sutures. The wound was irrigated. There was good hemostasis. The deep subcutaneous tissue was closed with interrupted 2-0 Monocryl. The subcutaneous tissue was closed with 3-0 Monocryl suture. The skin was closed with a running 4-0 subcuticular sutures. Skin glue was applied to both incisions as well as sterile pressure dressings. Sponge and needle counts were correct x2 per nursing personnel. Patient tolerated the procedure well, was extubated and sent to Recovery Room in good condition. [facility] Signed and Approved by: DR JAYSHREE CA . 08/26/2020 09[facility]02[facility]00[facility] Diagnosis Onset Date Resolution Status Wellness examination noneact doreen [facility] Work Phone: Evaluation note* Diagnosis Onset Date Resolution Status Primary osteoarthritis of right knee [facility] Work Phone: Evaluation note* Diagnosis Onset Date Resolution Status Primary osteoarthritis of right knee acute Primary osteoarthritis of right knee acute Preop exam for internal medicine noneactive [facility] Work Phone: Evaluation note* Diagnosis Onset Date Resolution Status Primary osteoarthritis of right knee acute Primary osteoarthritis of right knee acute Preop exam for internal medicine noneactive Primary osteoarthritis of right knee acute [facility] Work Phone: Evaluation note* Diagnosis Onset Date Resolution Status Primary osteoarthritis of right knee acute Primary osteoarthritis of right knee acute Preop exam for internal medicine noneactive Primary osteoarthritis of right knee acute Aftercare following right kn ee joint replacement surgery acute Status post right knee replacement acute [facility] Work Phone: Evaluation note* Diagnosis Onset Date Resolution Status Primary osteoarthritis of right knee acute Primary osteoarthritis of right knee acute Preop exam for internal medicine noneactive Primary osteoarthritis of right knee acute Aftercare following right kn ee joint replacement surgery acute Status post right knee replacement acute Aftercare following right kn ee joint replacement surgery acute Status post right knee replacement acute [facility] Work Phone: Evaluation note* Diagnosis Onset Date Resolution Status Primary osteoarthritis of right knee acute Preop exam for internal medicine noneactive Primary osteoarthritis of right knee acute Aftercare following right kn ee joint replacement surgery acute Status post right knee replacement acute Aftercare following right kn ee joint replacement surgery acute Status post right knee replacement acute [facility] Work Phone: Evaluation note* Diagnosis Onset Date Resolution Status Aftercare following right knee joint replacement surge ry acute Status post right knee replacement acute Aftercare following right knee joint replacement surge ry acute Status post right knee replacement acute Aftercare following right knee joint replacement surge ry acute Status post right knee replacement acute [facility] Work Phone: Evaluation note* Diagnosis Onset Date Resolution Status Admit Date Aftercare following right kn ee joint replacement surgery acute 2024 9:58am Status post right knee replacement acute August 26 9:58am [facility] Work Phone: Evaluation note* Diagnosis Pain in joint of left foot- Primary Arthritis of right foot Peroneal tendonitis, left Left foot pain Pain in soft tissues of limb documented [facility]* Type Description Date Surgical History arthroscopic knee surgery left and right Surgical History colonoscopy 2020 Surgical History Hernia x2 [employer] Other History general Narrative - Reported* Type Description Date Surgical History arthroscopic knee surgery left and right Surgical History colonoscopy 2020 Surgical History Hernia x2 Hospitalization History see surgical history [employer] Other Summary Purpose Family History No Family History Records Found Relationship Condition Age at Onset Recorded Date/T treasure father Unknown Not Specified Unknown Relationship Condition Age at Onset Recorded Date/T treasure father Unknown mother Unknown sister Malignant neoplasm of bone Unknown Advance Directives No Advanced Directives Records Found Advance Directive Response Recorded Date/ Time Advance Directives No June 07, 2017 9:03am Advance Directive Response Recorded Date/ Time Advance Directives No June 07, 2017 10:03am Discharge Instructions The following attachments cannot be sent through Care Everywhere. * URETERAL STENT PLACEMENT: POST-OP ([place]) in this encounter History of Present Illness * Leslee Gordon CNP - 05/20/2017 6:42 PM EDT Formatting of this note may be different from the original. Leslee Gordon CNP [facility] Hospitalists MEDICAL OBSERVATION DISCHARGE SUMMARY Kayley Sanderson Admit Date: 05/19/2017 Discharge Date: 05/20/17 Family Physician: Bhavesh Lopez DO MEDICAL OBSERVATION UNIT SUMMARY Kayley Sanderson is a 62 y.o. male admitted to the hospital on 05/19/2017 for evaluation of left flank pain. He was found to have 4mm left ureteral proximal stone with hydronephrosis. Urology evaluated, he went for stent placement 05/[address] Kenney. Stone unable to be removed secondary to narrowing of ureter. Per urology, OK for home with pain medication, 3 days of AB. Note UA this admission no evidence of infection. Of note, he was on AB therapy with augmentin prior to admission for suspected diverticulitis. Appears he was treated for diverticulitis earlier this month and had completed course of AB then. Suspecthis recurrent diverticulitis symptoms were more related to L sided kidney stone. CT imaging on admission with no concern for acute diverticulitis and no abd pain, rather L flank and back pain. AB changed to cipro at time of d/c for prohpylaxis with ureteral stent placement as above. Pt ambulating, urinating, tolerating PO at time of d/c. No cp or sob. Will follow up with Dr. Kenney or urology in his hometown. Plan of care discussed with pt and family. Comments/Problems to be Addressed After Discharge Call Dr. Kenney to discuss follow up and stent removal Discharge Medication Recommendations Discharge Medication List as of 05/20/2017 6:05 PM START taking these medications Details ciprofloxacin HCl (CIPRO) 250 MG tablet Take 1 (one) tablet (250 mg total) by mouth 2 (two) times aday for 3 days., Starting 05/20/2017, Until Sun05/23/17, Print oxyCODONE-acetaminophen (PERCOCET) 5-325 mg per tablet Take 1 (one) tablet by mouth every 6 (six) hours as needed for pain., Starting 05/20/2017, Until Sun05/25/17, Print CONTINUE these medications which have NOT CHANGED Details tamsulosin (FLOMAX) 0.4 mg capsule Take 0.4 mg by mouth daily., Until Discontinued, Historical Med traMADol (ULTRAM) 50 mg tablet Take 50 mg by mouth every 4 (four) hours as needed ., Starting 05/16/2017, Until Discontinued, Historical Med STOP taking these medications amoxicillin-clavulanate (AUGMENTIN) 875-125 mg per tablet Comments: Reason for Stopping: Kayley Sanderson was seen and examined on the day of discharge. The patient was appropriately risk stratified for observation level of care. Lungs clear, Cardiac Exam S1S2 no murmurs. Abd soft, non-tender, non-distended, BS x 4, pt tolerating a diet. * Enid Yates, RN - 05/20/2017 6:17 PM EDT Discharge instructions and prescriptions reviewed with patient, all questions answered. Patient will discharge by wheelchair. in this encounter Assessments Diagnosis Ureteral stone with hydronep hrosis - Primary Chief Complaint and Reason for Visit Chief Complaint Wellness Reason for Visit Wellness examination Chief Complaint M25.561 - Pain in ri ght knee NEW RT KNEE PAIN NX Reason for Visit Primary osteoarthrit is of right knee Chief Complaint M25.561 - Pain in ri ght knee NEW RT KNEE PAIN NX M17.11 M81.0 Z79.899 Reason for Visit Primary osteoarthrit is of right knee Chief Complaint M25.561 - Pain in ri ght knee NEW RT KNEE PAIN NX M17.11 M81.0 Z79.899 surgery clearance/yoselin/ r knee Reason for Visit Primary osteoarthrit is of right knee Primary osteoarthritis of right knee Preop exam for internal medicine Chief Complaint M25.561 - Pain in ri ght knee NEW RT KNEE PAIN NX M17.11 M81.0 Z79.899 surgery clearance/yoselin/ r knee Knee Pain Reason for Visit Primary osteoarthrit is of right knee Primary osteoarthritis of right knee Preop exam for internal medicine Chief Complaint M25.561 - Pain in ri ght knee NEW RT KNEE PAIN NX M17.11 M81.0 Z79.899 surgery clearance/yoselin/ r knee Knee Pain M17.11 - Unilateral primary osteoarthritis, right H&P RT MEDIAL UNI VS RTKA Reason for Visit Primary osteoarthrit is of right knee Primary osteoarthritis of right knee Preop exam for internal medicine Primary osteoarthritis of right knee Chief Complaint M25.561 - Pain in ri ght knee NEW RT KNEE PAIN NX M17.11 M81.0 Z79.899 surgery clearance/yoselin/ r knee Knee Pain M17.11 - Unilateral primary osteoarthritis, right H&P RT MEDIAL UNI VS RTKA Prolonged Reason for Visit Primary osteoarthrit is of right knee Primary osteoarthritis of right knee Preop exam for internal medicine Primary osteoarthritis of right knee Chief Complaint M25.561 - Pain in ri ght knee NEW RT KNEE PAIN NX M17.11 M81.0 Z79.899 surgery clearance/yoselin/ r knee Knee Pain M17.11 - Unilateral primary osteoarthritis, right H&P RT MEDIAL UNI VS RTKA Prolonged R medial uni vs R TKA Knee Pain Knee Pain Reason for Visit Primary osteoarthrit is of right knee Primary osteoarthritis of right knee Preop exam for internal medicine Primary osteoarthritis of right knee Chief Complaint M25.561 - Pain in ri ght knee NEW RT KNEE PAIN NX M17.11 M81.0 Z79.899 surgery clearance/yoselin/ r knee Knee Pain M17.11 - Unilateral primary osteoarthritis, right H&P RT MEDIAL UNI VS RTKA Prolonged R medial uni vs R TKA Knee Pain Knee Pain [facility] PT 2 WK POST OP RT MEDIAL UNI VS. RTKA Reason for Visit Primary osteoarthrit is of right knee Primary osteoarthritis of right knee Preop exam for internal medicine Primary osteoarthritis of right knee Aftercare following right knee joint replacement surgery Status post right knee replacement Chief Complaint M25.561 - Pain in ri ght knee NEW RT KNEE PAIN NX M17.11 M81.0 Z79.899 surgery clearance/yoselin/ r knee Knee Pain M17.11 - Unilateral primary osteoarthritis, right H&P RT MEDIAL UNI VS RTKA Prolonged R medial uni vs R TKA Knee Pain Knee Pain [facility] PT 2 WK POST OP RT MEDIAL UNI VS. RTKA 4 WK RECHECK RT MEDIAL UNI VS RTKA Z47.1 - Aftercare following joint replacement surg Reason for Visit Primary osteoarthrit is of right knee Primary osteoarthritis of right knee Preop exam for internal medicine Primary osteoarthritis of right knee Aftercare following right knee joint replacement surgery Status post right knee replacement Aftercare following right knee joint replacement surgery Status post right knee replacement Chief Complaint surgery clearance/ca rlisle/ r knee Knee Pain M17.11 - Unilateral primary osteoarthritis, right H&P RT MEDIAL UNI VS RTKA Prolonged R medial uni vs R TKA Knee Pain Knee Pain [facility] PT 2 WK POST OP RT MEDIAL UNI VS. RTKA 4 WK RECHECK RT MEDIAL UNI VS RTKA Z47.1 - Aftercare following joint replacement surg Reason for Visit Primary osteoarthrit is of right knee Preop exam for internal medicine Primary osteoarthritis of right knee Aftercare following right knee joint replacement surgery Status post right knee replacement Aftercare following right knee joint replacement surgery Status post right knee replacement Chief Complaint R medial uni vs R TK A Knee Pain Knee Pain [facility] PT 2 WK POST OP RT MEDIAL UNI VS. RTKA 4 WK RECHECK RT MEDIAL UNI VS RTKA Z47.1 Z96.651 Z47.1 - Aftercare following joint replacement surg [id number] Reason for Visit Aftercare following right knee joint replacement surgery Status post right knee replacement Aftercare following right knee joint replacement surgery Status post right knee replacement Aftercare following right knee joint replacement surgery Status post right knee replacement Chief Complaint Knee Pain Knee Pain [facility] PT 2 WK POST OP RT MEDIAL UNI VS. RTKA 4 WK RECHECK RT MEDIAL UNI VS RTKA Z47.1 Z96.651 Z47.1 - Aftercare following joint replacement surg [id number] Reason for Visit Aftercare following right knee joint replacement surgery Status post right knee replacement Aftercare following right knee joint replacement surgery Status post right knee replacement Aftercare following right knee joint replacement surgery Status post right knee replacement Chief Complaint Admit Date Z47.1 - Aftercare following joint replac ement surg August 26, 2024 9:05am OP SP RT KNEE PAIN August 26, 2024 9 :58am Reason for Visit Admit Date Aftercare following right knee joint rep lacement surgery August 26, 2024 9:58am Status post right knee replacement Janua ry 2024 9:58am Chief Complaint Admit Date Z47.1 - Aftercare following joint replac ement surg August 26, 2024 9:05am OP SP RT KNEE PAIN August 26, 2024 9 :58am Dizziness August 29, 2024 1 0:00am Chief Complaint Admit Date Dizziness August 29, 2024 1 0:00am 3 MONTHS November 26, 2024 8:1 1am Z96.651 - Presence of right artificial k nee joint November 26, 2024 8:14am Reason for Visit Admit Date BPPV (benign paroxysmal positional verti go) August 29, 2024 10:00am Dehydration August 29, 2024 1 0:00am Aftercare following right knee joint rep lacement surgery November 26, 2024 8:11am Status post right knee replacement November 26, 2024 8:11am Additional Source Comments (unrecognized sect ion and content) No Status Records FoundNo Status Records FoundNo Status Records FoundNo Status Records FoundNo Status Records FoundNo Status Records Found INFORMATION SOURCE (unrecogn ized section and content) DATE CREATED AUTHOR 01/22/2018 [facility] DATE CREATED AUTHOR AUTHOR'S ORGANIZ ATION 01/23/2018 [facility] DATE CREATED AUTHOR AUTHOR'S ORGANIZ ATION 09/23/2020 [facility] DATE CREATED AUTHOR AUTHOR'S ORGANIZ ATION 06/02/2021 [facility] DATE CREATED AUTHOR AUTHOR'S ORGANIZ ATION 12/04/2024 [facility] DATE CREATED AUTHOR AUTHOR'S ORGANIZ ATION 02/09/2025 [facility] EPIC Reason for Visit (unrecogniz ed section and content) Reason Comments Abdominal Pain Status Reason Specialty Diagnoses / Procedures Referre d By Contact Referred To Contact Reason Comments Foot Pain Kayley Sanderson 69yo Ne w Patient presents with Left, lateral side,foot pain. Patient admits multiple fractures, sprains, with several casts in the late s. Pain started 01/30/2025, NKI, noticed while walking, pain is constant, less when elevating, icing. 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 SS 10.5 Sonia Kenney MD - 05/20/2017 2:35 PM EDTCondonKayley MD - 05/20/2017 3:43 AM EDT H&P Notes (unrecognized sect ion and content) HISTORY AND PHYSICAL UPDATE Patient Name: Kayley Sanderson Admit Date: [id number] MR #: [id number] : 1955 Physicians: Bhavesh Lopez DO (Family); No ref. provider found (Referring) Chief Complaint/Reason for Visit: Left ureteral stone History of Present Illness: Kayley Sanderson is a 62 y.o. male presenting from floor with c/o left ureteral stone for ureteroscopy, stone manipulation, stent placement The H&P has been reviewed and the patient has been examined. I concur with the findings of the H&P with the following changes: none. Formatting of this note may be different from the original. Kayley Veloz MD [facility] Hospital[facility] History and Physical Patient Name:Kayley Sanderson MR #:[id number] :1955 Admit Date: [id number] Physicians: Bhavesh Lopez DO (Family); No ref. provider found (Referring) Perpetual Assessment: Kayley Sanderson is a 62 y.o. male who presented from home on 05/19/2017 with LLQ abdominal pain. ASSESSMENT AND PLAN Kidney stone noted the onset of LLQ abdominal pain starting 05/19/17. Presented to ED where CT showed left ureteral stone. -Admit to OBS -NPO -Consult Urology: Dr. Kenney -Start IV fluids -Start Flomax, daily -Pain meds, prn -Anit-emetics.prn DVT Prophylaxis Lovenox Medication Reconciliation Reviewed Comments/Disposition: HISTORY CC: LLQ ABDOMINAL PAIN HPI: Kayley Sanderson is a 62 y.o. male with PMHx significant for a bout of diverticulitis on 05/01/17. Was treated at [facility] ED. Discharged on po Cipro/Flagyl. The course of antibiotics resolved his LLQ abdominal pain. He was doing well until the afternoon of 05/19/17. He again noted the onset LLQ abdominal pain. Pain then started to radiate to his left flank. Denies any associated nausea, vomiting, diarrhea, fever, chills, night sweats, urinary frequency, dysuria or hematuria. In the ED CT showed a left 4 mm ureteral stone with hydronephrosis and hydroureter. Will admit to OBS for further evaluation and treatment of his left ureteral stone. ROS: > > > > > > > > > > The following system(s) were reviewed. Pertinent positive and negative findings are noted in the HPI. Const Eyes ENT Resp CV GI Neuro Musc Skin Psych Endo Allergy Heme/Lymph PMH/PSH/SH/FH: Past Medical History: Diagnosis Date Colitis Diverticulitis Past Surgical History: Procedure Laterality Date HERNIA REPAIR Left inguinal ORTHOPEDIC SURGERY Bilateral knees- arthroscopic History reviewed. No pertinent family history. Social History Social History Marital status: Spouse name: N/A Number of children: N/A Years of education: N/A Occupational History Not on file. Social History Main Topics Smoking status: Never Smoker Smokeless tobacco: Never Used Alcohol use Yes Comment: rarely Drug use: No Sexual activity: Not on file Other Topics Concern Not on file Social History Narrative Allergy Information: I have reviewed the patient's allergies. Review of patient's allergies indicates no known allergies. Home Medications: Outpatient Prescriptions Marked as Taking for the 05/19/17 encounter (Hospital Encounter) Medication Sig amoxicillin-clavulanate (AUGMENTIN) 875-125 mg per tablet Take 1 tablet by mouth 2 (two) times a day For 10 days. tamsulosin (FLOMAX) 0.4 mg capsule Take 0.4 mg by mouth daily. traMADol (ULTRAM) 50 mg tablet Take 50 mg by mouth every 4 (four) hours as needed . PHYSICAL EXAMINATION > > > > > > > > Vital Signs: Temp: [97.9 F (36.6 C)-98 F (36.7 C)] 98 F (36.7 C) Heart Rate: [54-63] 54 Resp: [14-16] 15 BP: (102-114)/(56-76) 112/67 GENERAL: a&ox3, wd,wn, elderly male in nad EYES: Conjunctiva and sclera clear, eomi,perrl, ENT: Hearing intact. Pharynx clear NECK: No adenopathy or thyromegaly CV: RRR, no murmur. No JVD. No edema RESP: Clear, no rales, rhonchi, wheezes or increase in respiratory effort, no use of accessory muscles GI: Non-distended, +BS, soft, tender to palpation over the left lower quadrant and left flank. No guarding, masses or rebound MUSC: Normal ROM without deformity SKIN: Warm and dry. No rashes. NEURO: Alert, Ox3. Grossly normal motor and sensory exam. No focal deficits PSYCH: Mood and affect are appropriate. Cooperative. Laboratory and Additional Data Acquired or Reviewed: Laboratory Transcriptions Radiology Microbiology Cardiology Outside Records Medications Family Time Spent: TOTAL TIME: 50 MINUTES in this encounter Kenney, Sonia Chnadra MD - 05/20/2017 10:05 AM EDT Consult Notes (unrecognized section and content) Associated Order(s): IP CONSULT TO UROLOGY Formatting of this note may be different from the original. Patient Name: Kayley Sanderson Admit Date: [id number] MR #: [id number] : 1955 Physicians: Bhavesh Lopez DO (Family); Kayley Veloz MD (Referring) Chief Complaint/Reason for Visit: Left ureteral stone, colic History of Present Illness: 62 yo male with no history of stones admitted with persistent severe left flank pain. He was initially diagnosed with diverticulitis but CT scan shows 4 mm stone in proximal left ureter with obstruction. No nausea, fever, or voiding symptoms. History: Past Medical History: Diagnosis Date Colitis Diverticulitis Past Surgical History: Procedure Laterality Date HERNIA REPAIR Left inguinal ORTHOPEDIC SURGERY Bilateral knees- arthroscopic History reviewed. No pertinent family history. Social History Social History Marital status: Spouse name: N/A Number of children: N/A Years of education: N/A Occupational History Not on file. Social History Main Topics Smoking status: Never Smoker Smokeless tobacco: Never Used Alcohol use Yes Comment: rarely Drug use: No Sexual activity: Not on file Other Topics Concern Not on file Social History Narrative Allergy Information: I have reviewed the patient's allergies. Review of patient's allergies indicates no known allergies. Home Medications: Outpatient Prescriptions as of 05/19/2017 Medication Sig amoxicillin-clavulanate (AUGMENTIN) 875-125 mg per tablet Take 1 tablet by mouth 2 (two) times a day For 10 days. traMADol (ULTRAM) 50 mg tablet Take 50 mg by mouth every 4 (four) hours as needed . [DISCONTINUED] ciprofloxacin HCl (CIPRO) 500 MG tablet Take 500 mg by mouth every 12 (twelve) hours. [DISCONTINUED] metroNIDAZOLE (FLAGYL) 500 MG tablet Take 500 mg by mouth 3 (three) times a day. Review of Systems: The following system(s) were reviewed and pertinent findings noted: Constitutional Eyes ENT CV Resp GI Neuro Skin Musc Endo Heme/Lym Allergy Psych Physical Examination: Vital Signs: BP 111/62 (BP Location: Left arm, Patient Position: Lying) Pulse 63 Temp 97.9 F (36.6 C) (Oral) Resp 14 Ht 6' Wt 80.7 kg (178 lb) SpO2 97% BMI 24.14 kg/m2 BP 111/62 (BP Location: Left arm, Patient Position: Lying) Pulse 63 Temp 97.9 F (36.6 C) (Oral) Resp 14 Ht 6' Wt 80.7 kg (178 lb) SpO2 97% BMI 24.14 kg/m2 General appearance: alert, appears stated age and cooperative Head: Normocephalic, without obvious abnormality, atraumatic Eyes: conjunctivae/corneas clear. PERRL, EOM's intact. Fundi benign. Ears: normal TM's and external ear canals both ears Nose: Nares normal. Septum midline. Mucosa normal. No drainage or sinus tenderness. Throat: lips, mucosa, and tongue normal; teeth and gums normal Neck: no adenopathy, no carotid bruit, no JVD, supple, symmetrical, trachea midline and thyroid not enlarged, symmetric, no tenderness/mass/nodules Back: symmetric, no curvature. ROM normal. No CVA tenderness. Lungs: clear to auscultation bilaterally Chest wall: no tenderness Heart: regular rate and rhythm, S1, S2 normal, no murmur, click, rub or gallop Abdomen: soft, left flank pain to percusion, no masses Male genitalia: normal Extremities: extremities normal, atraumatic, no cyanosis or edema Pulses: 2+ and symmetric Skin: Skin color, texture, turgor normal. No rashes or lesions Lymph nodes: Cervical, supraclavicular, and axillary nodes normal. Neurologic: Grossly normal Laboratory and Additional Data Reviewed: Laboratory 05/20/17 10:08 AM Radiology 05/20/17 10:08 AM Medications 05/20/17 10:08 AM Assessment and Plan/Recommendations: Kayley Sanderson is a 62 y.o. y/o male presenting with 4 mm left ureteral stone and persistent renal colic. Plan ureteroscopy today with laser of stone and stent placement. Patient agrees with plan after detailed discussion. He will mostly likely be ok for dc home after surgery. in this encounter Quick Note - Sonia Kenney MD - 05/20/2017 2:36 PM EDTBrief Op Note - Sonia Kenney MD - 05/20/2017 2:32 PM EDTAssessment & Plan Note - Kayley Veloz MD - 05/20/2017 3:30 AM EDT Miscellaneous Notes (unrecog nized section and content) Cystoscopy, ureteroscopy with left stent placement performed. OK to dc home this afternoon on oral pain med and antibiotic for 3-[address] Kenney's office for follow up instructions ([phone]). Formatting of this note may be different from the original. Brief Post Operative Note Patient Name: Kayley Sanderson : 1955 (62 y.o.) Date of Service: 05/20/2017 CSN: [id number] Procedure(s): CYSTOSCOPY, RETROGRADE PYELOGRAM, LEFT URETEROSCOPY, left JJ STENT PLACEMENT, Pre-Operative Diagnoses: * LEFT URETERAL CALCULUS Post-Operative Diagnoses: * Same as Pre-Op Diagnosis Surgeon(s) and Role: * Sonia Kenney MD - Primary Anesthesiologist: Angela Manzanares MD Associate Team Physician: Siria Goodrich RN Velvet Weaver: Annemarie Chavez, TECHNOLOGIST Scrub Person: Bonnie Seay RN Operative findings: probable proximal left ureteral location of stone, ureter very tight preventing scope from reaching stone Intra and immediate post-operative complications: none Type of anesthesia used: general Estimated blood loss: refer to anesthesia record Estimated urine output: refer to anesthesia record Specimen(s): * No specimens in log * Implant(s): Implant Name Type Inv. Item Serial No. Car Cleaner Lot No. LRB No. Used Action STENT 4.8FR X 22-30CM CONTOUR PILAR LENGTH - [id number] Stent STENT 4.8FR X 22- 30CM CONTOUR PILAR LENGTH GEOFF SCI U [id number] Left 1 Implanted Drain(s): Wound(s): Sonia Kenney MD 05/20/2017 2:32 PM Associated Problem(s): Kidney stone noted the onset of LLQ abdominal pain starting 05/19/17. Presented to ED where CT showed left ureteral stone. -Admit to OBS -NPO -Consult Urology: Dr. Kenney -Start IV fluids -Start Flomax, daily -Pain meds, prn -Anit-emetics.prn copc to write orders for tonya [phone] Dr kenney to [place] to dr [place] [phone] Dr jackman spoke with dr ray on [phone] Visitor at bedside. Physician at bedside. Visitor at bedside. Patient is resting comfortably. Call light within reach. Patient updated on continued plan of care. Formatting of this note may be different from the original. [facility] MEDICAL OBSERVATION PCP - Bhavesh Lopez DO Chief Complaint Patient presents with Abdominal Pain HPI Here for evaluation of left lower quadrant abdominal pain. Symptoms started today. Worsening throughout the day. Patient was recently evaluated in the emergency department treated for diverticulitis. He was discharged home with Cipro and Flagyl. His symptoms improved after treatment however today he began having pain in the same area. Bowel movements have been normal. No nausea or vomiting. Prescribed Ultram by his PCP. He took 1 of these prior to arrival and currently feels his pain is controlled. Denies any dysuria. No other symptoms or complaints. Past Medical History Past Medical History: Diagnosis Date Colitis Diverticulitis Past Surgical History Past Surgical History: Procedure Laterality Date HERNIA REPAIR Left inguinal ORTHOPEDIC SURGERY Bilateral knees- arthroscopic Family History History reviewed. No pertinent family history. Social History Social History Social History Marital status: Spouse name: N/A Number of children: N/A Years of education: N/A Occupational History Not on file. Social History Main Topics Smoking status: Never Smoker Smokeless tobacco: Never Used Alcohol use Yes Comment: rarely Drug use: No Sexual activity: Not on file Other Topics Concern Not on file Social History Narrative Allergies No Known Allergies Medications Previous Medications AMOXICILLIN-CLAVULANATE (AUGMENTIN) 875-125 MG PER TABLET Take 1 tablet by mouth 2 (two) times a day For 10 days. TAMSULOSIN (FLOMAX) 0.4 MG CAPSULE Take 0.4 mg by mouth daily. TRAMADOL (ULTRAM) 50 MG TABLET Take 50 mg by mouth every 4 (four) hours as needed . General: Denies fevers, sweats, chills HEENT: Denies congestion, ear pain, sore throat, headache CV: Denies chest pain, palpitations, heart racing Respiratory: Denies shortness of breath, painful respirations, cough Abdomen/GI: Left-sided abdominal pain. Worsening throughout the day. No diarrhea or blood in his stool. No nausea or vomiting. : Denies dysuria, urethral discharge, increased urinary frequency Neuro: Denies focal weakness, numbness, paresthesias Musculoskeletal: Denies joint pain, extremity pain, back pain Hematologic: Denies abnormal bruising, bleeding, hot flashes, cold flashes Skin: Denies rash, abrasions, laceration Vital Signs During ED Visit (as charted by nursing) Patient Vitals for the past 24 hrs: BP Temp Temp src Pulse Resp SpO2 Height Weight 05/20/17 0253 112/67 98 F (36.7 C) Oral (!) 54 15 98 % - - 05/20/17 0234 102/61 - - (!) 57 14 97 % - - 05/19/17 2359 (!) 114/56 - - (!) 59 16 100 % - - 05/19/17 2206 114/76 97.9 F (36.6 C) Oral 63 16 99 % 6' 80.7 kg (178 lb) Physical Exam: GENERAL: Well developed, Well nourished, No acute distress HEENT: Normocephalic. Atraumatic. TM's clear bilaterally. No swelling, edema. PERRL NECK: TML. No stridor. Supple. No nuchal rigidity. No JVD CARDIOVASCULAR: Regular rate and rhythm. Normal S1,S2. No S3,S4. No murmurs, gallops, or rubs RESPIRATORY: Lungs CTA bilaterally. No crackles, wheezes, ronchi. No retractions ABDOMEN: Tenderness palpation left lower quadrant of the abdomen. The abdomen is soft and nondistended. No masses palpated. Bowel sounds present all 4 quadrants. : No suprapubic tenderness. No CVA tenderness. No tenderness in the anatomical flank MUSCULOSKELETAL: No obvious bony deformities. No midline C-spine, T-spine, lumbosacral tenderness. Moving all extremities in all major joints EXTREMITIES: No obvious trauma. No swelling or edema. 2+ peripheral pulses all 4 extremities SKIN: No visible rash. No pallor. No obvious lacerations or abrasions. Distal extremities warm and well-perfused Laboratory Results Results for orders placed or performed during the hospital encounter of 05/19/17 BMP Result Value Ref Range Sodium 138 135 - 145 mmol/L Potassium 4.4 3.5 - 5.1 mmol/L Chloride 97 (L) 98 - 108 mmol/L Bicarbonate 30 21 - 32 mmol/L Anion Gap 15 10 - 20 mmol/L Glucose 130 (H) 65 - 99 mg/dL BUN 17 8 - 25 mg/dL Creatinine 1.34 (H) 0.80 - 1.30 mg/dL eGFR 57 (L) >=60 mL/min/1.73 m2 BUN/Creatinine Ratio 12.7 10.0 - 20.0 Calcium 9.0 8.4 - 10.2 mg/dL Gold Top Result Value Ref Range Extra Tube Hold for add-ons. Light Blue Top Result Value Ref Range Extra Tube Hold for add-ons. Griffith Top Result Value Ref Range Extra Tube Hold for add-ons. Urinalysis Result Value Ref Range Color, Urine Colorless Colorless, Yellow Clarity, Urine Clear Clear Specific Dauphin 1.028 (H) 1.005 - 1.025 pH, Urine 5.0 5.0 - 7.0 Protein, Urine Negative Negative mg/dL Glucose, Urine Negative Negative mg/dL Ketones, Urine Negative Negative mg/dL Bilirubin, Urine Negative Negative Urobilinogen, Urine <2.0 <2.0 mg/dL Blood, Urine Small (A) Negative Nitrite, Urine Negative Negative Leukocyte Esterase, Urine Negative Negative RBCs, Urine 5 (H) 0 - 3 /hpf Bacteria, Urine None Seen None Seen /hpf CBC Auto Differential Result Value Ref Range WBC 6.98 4.50 - 11.00 K/mcL RBC 4.62 4.50 - 5.90 M/mcL Hemoglobin 14.1 13.5 - 17.5 g/dL Hematocrit 40.1 (L) 41.0 - 53.0 % MCV 86.8 80.0 - 100.0 fL MCH 30.5 26.0 - 34.0 pg MCHC 35.2 31.0 - 37.0 g/dL Platelets 187 150 - 400 K/mcL RDW - CV 12.3 11.6 - 14.8 % MPV 9.9 9.0 - 15.5 fL Neutrophils 79.1 % Lymphocytes 11.2 % Monocytes 8.6 % Eosinophils 0.7 % Basophils 0.1 % IG Percent 0.30 % Neutrophils Abs 5.52 1.70 - 7.00 K/mcL Lymphocytes Abs 0.78 (L) 0.90 - 4.00 K/mcL Monocytes Abs 0.60 0.30 - 0.90 K/mcL Eosinophils Abs 0.05 0.00 - 0.50 K/mcL Basophils Abs 0.01 0.00 - 0.30 K/mcL IG Absolute 0.02 0.00 - 0.30 K/mcL Nucleated RBC 0.0 % Nucleated RBC Abs 0.00 0.00 - 0.00 K/mcL Radiographic Imaging (if any) During ED Visit CT Abdomen Pelvis With IV Contrast Only Final Result 4 mm ureteral calculus is seen within the left proximal ureter with left-sided hydronephrosis and hydroureter. Indeterminate renal hypodensities can be further evaluated with outpatient ultrasound or MRI exam. No CT evidence for acute diverticulitis. /tde Workstation ID: [id number] Medications Ordered/Given During ED Visit Medications sodium chloride (PF) (NS) 0.9 % flush 5 mL (not administered) flu vaccine qv 2017 (FLUZONE QUAD/FLUARIX QUAD) syringe 0.5 mL (not administered) sodium chloride 0.9% (NS) (not administered) enoxaparin (LOVENOX) syringe 40 mg (not administered) acetaminophen (TYLENOL) tablet 650 mg (not administered) ondansetron (ZOFRAN) injection 4 mg (not administered) aluminum-magnesium hydroxide-simethicone (MAALOX PLUS) 200-200-20 mg/5 mL suspension 30 mL (not administered) traZODone (DESYREL) tablet 50 mg (not administered) HYDROmorphone (DILAUDID) 1 mg/mL injection 0.5-1 mg (not administered) metoclopramide (REGLAN) injection 10 mg (not administered) tamsulosin (FLOMAX) 24 hr capsule 0.4 mg (not administered) sodium chloride 0.9% (NS) bolus 500 mL (0 mL Intravenous Stopped 05/19/17 7629) iopamidol (ISOVUE-370) 76 % injection 75 mL (75 mL Intravenous Contrast Administered 05/19/17 2320) sodium chloride 0.9% (NS) bolus 500 mL (0 mL Intravenous Stopped 05/20/17 0045) HYDROmorphone (DILAUDID) 1 mg/mL injection 0.5 mg (0.5 mg Intravenous Given 05/20/17 0044) Procedures MEDICAL DECISION MAKING ED Course Here for evaluation of left-sided abdominal pain. See HPI for details. Afebrile stable vital signs on arrival. Exam is described above. Recently treated for diverticulitis. He says his PCP informed him that on the initial CT scan performed nearly 2 weeks ago there was evidence of a small left-sided kidney stone. CT scan today shows no evidence of diverticulitis was does show evidence of ureterolithiasis with a 4 mm stone in the proximal ureter and subsequent hydronephrosis. He does have evidence of AK I. Given IV fluids. On-call urologist called. Will admit to observation unit. Urology will evaluate the patient tomorrow and determine whether or not he require removal of the stone. It is possible is been present for nearly 2 weeks and is unlikely to pass on its own. Patient understands treatment plan is agreeable. CLINICAL IMPRESSION SNOMED CT(R) 1. Ureteral stone with hydronephrosis HYDRONEPHROSIS WITH RENAL AND URETERAL CALCULOUS OBSTRUCTION Follow-up Information Follow-up information has not been specified. New Prescriptions No medications on file (Please note that portions of this note may have been completed with a voice recognition software -- Dragon by Jeniffer Ray DO 05/20/17 8103 Visitor at bedside. Physician at bedside. Pt states he was recently diagnosed w/ diverticulitis and a kidney stone. Pt unsure of which side stone was on. Pt taking amoxicillin currently, finished Cipro and Flagyl. Pt having increased left sided abdominal pain. Pt states last BM was around 12:30 today and was normal for him. Pt denies blood in urine or stool. Pt denies emesis or fevers.in this encounter Care Teams (unrecognized sec tion and content) Team Status: Active Member Role Status Dates Bhavesh Lopez DO Primary Care Provider Active Team Status: Inactive Member Role Status Dates Bhavesh Lopez DO Primary Care Provider Active Start: August 26, 2024 End: August 26, 2024 Rakan Morton II, MD Attending Provider Active Start: August 26, 2024 End: August 26, 2024 Team Status: Active Member Role Status Dates Bhavesh Lopez DO Primary Care Provider Active Start: August 26, 2024 Rakan Morton II, MD Attending Provider Active Start: August 26, 2024 Team Status: Inactive Member Role Status Dates Bhavesh Lopez DO Primary Care Provider Active Start: January 03, 2024 End: January 03, 2024 Rakan Morton II, MD Attending Provider Active Start: January 03, 2024 End: January 03, 2024 Team Status: Active Member Role Status Dates Bhavesh Lopez DO Primary Care Provider Active Start: January 03, 2024 Rakan Morton II, MD Attending Provider Active Start: January 03, 2024 Team Status: Inactive Member Role Status Dates Bhavesh Lopez DO Primary Care Provide r, Attending Provider Active Start: September 20, 2023 End: September 20, 2023 Team Status: Inactive Member Role Status Dates Bhavesh Lopez DO Primary Care Provide r, Attending Provider Active Start: January 11, 2024 End: January 11, 2024 Team Status: Inactive Member Role Status Dates Bhavesh Lopez DO Primary Care Provider Active Start: February 01, 2024 End: February 01, 2024 Rakan Morton II, MD Attending Provider Active Start: February 01, 2024 End: February 01, 2024 Team Status: Active Member Role Status Dates Bhavesh Lopez DO Primary Care Provider Active Start: February 07, 2024 Rakan Morton II, MD Attending Provider Active Start: February 07, 2024 Team Status: Inactive Member Role Status Dates Bhavesh Lopez DO Primary Care Provider Active Start: February 07, 2024 End: February 07, 2024 Rakan Morton II, MD Attending Provider Active Start: February 07, 2024 End: February 07, 2024 Team Status: Inactive Member Role Status Dates Bhavesh Lopez DO Primary Care Provider Active Start: February 08, 2024 End: February 08, 2024 Rakan Morton II, MD Attending Provider Active Start: February 08, 2024 End: February 08, 2024 Team Status: Active Member Role Status Dates Bhavesh Lopez DO Primary Care Provider Active Start: February 14, 2024 Rakan Morton II, MD Attending Provider Active Start: February 14, 2024 Team Status: Inactive Member Role Status Dates Bhavesh Lopez DO Primary Care Provider Active Start: February 18, 2024 End: February 18, 2024 Rakan Morton II, MD Attending Provider Active Start: February 18, 2024 End: February 18, 2024 Team Status: Active Member Role Status Dates Bhavesh Lopez DO Primary Care Provider Active Start: February 18, 2024 Rakan Morton II, MD Attending Provi lexus, Other Provider Active Start: February 18, 2024 Team Status: Inactive Member Role Status Dates Bhavesh Lopez DO Primary Care Provider Active Start: February 14, 2024 End: February 14, 2024 Rakan Morton II, MD Attending Provider Active Start: February 14, 2024 End: February 14, 2024 Team Status: Inactive Member Role Status Dates Bhavesh Lopez DO Primary Care Provider Active Start: 2024 End: 2024 LIZETTE Sherman Attending Provider Active Start: 2024 End: 2024 Team Status: Inactive Member Role Status Dates Bhavesh Lopez DO Primary Care Provider Active Start: April 02, 2024 End: April 02, 2024 Rakan Morton II, MD Attending Provider Active Start: April 02, 2024 End: April 02, 2024 Team Status: Active Member Role Status Dates Bhavesh Lopez DO Primary Care Provider Active Start: April 02, 2024 Rakan Morton II, MD Attending Provider Active Start: April 02, 2024 Team Status: Active Member Role Status Dates Bhavesh Lopez DO Primary Care Provider Active Start: May 14, 2024 Rakan Morton II, MD Attending Provider Active Start: May 14, 2024 Team Status: Inactive Member Role Status Dates Bhavesh Lopez DO Primary Care Provider Active Start: May 14, 2024 End: May 14, 2024 Rakan Morton II, MD Attending Provider Active Start: May 14, 2024 End: May 14, 2024 Team Status: Inactive Member Role Status Dates Bhavesh Lopez DO Primary Care Provide r, Attending Provider Active Start: August 29, 2024 End: August 29, 2024 Team Status: Inactive Member Role Status Dates Bhavesh Gallito Primary Care Provider Active Start: November 26, 2024 End: November 26, 2024 Rakan Morton II, MD Attending Provider Active Start: November 26, 2024 End: November 26, 2024 Team Status: Active Member Role Status Dates Bhavesh Lopez DO Primary Care Provider Active Start: November 26, 2024 Rakan Morton II, MD Attending Provider Active Start: November 26, 2024 Alteration Specialist Relationship Specialty Start Date End Date Bhavesh Lopez [address] [place] [id number] PCP - General Internal Medicine 02/04/25 Alteration Specialist Relationship Specialty Start Date End Date GallitoBhaveshDO [address] [place] [address] PCP - General Internal Medicine 02/04/25 Goals (unrecognized section and content) Goals may be documented in a n alternate section FOR RECORDS PERTAINING TO PATIENTS WHO ARE OR HAVE BEEN ENROLLED IN A CHEMICAL DEPENDENCY/SUBSTANCEABUSE PROGRAM, SOME INFORMATION MAY BE OMITTED. This clinical summary was aggregated from multiple sources. Caution should be exercised in using it in the provision of clinical care. This summary normalizes information from multiple sources, and as a consequence, information in this document may materially change the coding, format and clinical context of patient data. In addition, data may be omitted in some cases. CLINICAL DECISIONS SHOULD BE BASED ON THE PRIMARY CLINICAL RECORDS. [facility] [employer] [facility]. provides no warranty or guarantee of the accuracy or completeness of information in this document.
--- NOTE | 2025-02-12 19:39 | PC.NURSE ---
Laceration to right hand first finger, incision well approx., redness surrounding incision. No drainage at this time.
--- NOTE | 2025-02-12 19:46 | XR_ITS ---
The [address] [address] Patient Name: KAYLEY SANDERSON MRN: [id number] date: 1955 Sex: M Assigned Patient Location: ER Current Patient Location: Accession/Order Number: [id number] Exam Date: 02/12/2025 20:37 Report Date: 02/12/2025 20:40 At the request of: KIKE HOLGUIN NP Procedure: XR finger RT min 2V XR finger RT min 2V 02/12/2025 8:11 PM SIGNS AND SYMPTOMS: Laceration right first digit, rule out foreign body PROTOCOL: Frontal, lateral, and oblique radiographs of the right second digit COMPARISON: None FINDINGS: Mild degenerative changes are noted in the metacarpophalangeal joints of the first through third digits. There is mild narrowing of the distal interphalangeal joint of the second digit. There is no fracture or dislocation. No abnormal radiopaque foreign body. XR/XR finger RT min 2V IMPRESSION: No abnormal radiopaque foreign body. Degenerative changes are noted as above. Impression dictated by: Salinas Tompkins M.D. 02/12/2025 8:40 PM Dictation Location: [place] [address] Electronically authenticated by: [id number] Y Date: 02/12/2025 20:40
--- NOTE | 2025-02-12 20:18 | ED_ITS ---
HPI HPI - General Adult General Chief complaint: Extremity Injury, Upper Stated complaint: INJURY R INDEX FINGER Time Seen by Provider: 02/12/25 19:38 Source: patient Mode of arrival: walk-in History of Present Illness HPI narrative: Patient is a 69-year-old male who presents to the emergency department today for evaluation of concerns for a possible foreign body to his index finger on the right hand. He states he cut his finger on a pop canned 2 days ago mostly to the distal phalanx along the medial nailbed. He states became concerned that there was possible piece of aluminum in this wound to begin digging at it. He mentions he continues to have some pain at the site and is continuing to have concerns for possible foreign body. No paresthesias, no some loss of movement to the affected extremity and digit. Historically he is up-to-date on tetanus. No sick symptoms including fevers or chills. He denies any redness or swelling at the site. Related Data Allergies Allergy/AdvReac Type Severity Reaction Status Date / Time No Known Drug Allergies Allergy Verified 02/12/25 19:31 Review of Systems ROS Status of ROS 10 or more systems reviewed and unremark able except as noted in history and below PFSH PFSH Social History Little interest or pleasure in doing things: not at all Feeling down, depressed, or hopeless: not at all Exam Narrative Exam Narrative: Constituational: Awake/ alert, no apparent distress, well hydrated HENMT: normocephalic, external ears normal, moist oral mucous membranes and oropharynx normal Eyes: EOMI and conjunctivae normal Neck: ROM intact Chest: inspection of chest normal Respiratory: Normal respiratory effort MSK: Gross/fine motor movement intact to R index finger, +NVI Skin: +approx 1 cm horizontal abrasion along the medial aspect of the dorsal R index finger along the nailbed with some mild serosanguineous like drainage. No edema or ecchymosis. Neuro: no focal deficits Psych: mental status grossly normal Constitutional Vital Signs, click to edit/add: Last Vital Signs Temp 98.1 F 02/12/25 19:31 Pulse 74 02/12/25 19:31 Resp 20 02/12/25 19:31 BP 133/88 02/12/25 19:31 Pulse Ox 97 02/12/25 19:31 O2 Del Method Room Air 02/12/25 19:31 Course Vital Signs Vital signs: Vital Signs Temperature 98.1 F 02/12/25 19:31 Pulse Rate 74 02/12/25 19:31 Respiratory Rate 20 02/12/25 19:31 Blood Pressure 133/88 02/12/25 19:31 Pulse Oximetry 97 02/12/25 19:31 Oxygen Delivery Method Room Air 02/12/25 19:31 Temperature 98.1 F 02/12/25 19:31 Pulse Rate 74 02/12/25 19:31 Respiratory Rate 20 02/12/25 19:31 Blood Pressure 133/88 02/12/25 19:31 Pulse Oximetry 97 02/12/25 19:31 Oxygen Delivery Method Room Air 02/12/25 19:31 Medical Decision Making MDM Narrative Medical decision making narrative: The patient is a well-appearing 69-year-old male who presented to the emergency department today for evaluation concerns for a finger laceration and possible foreign body to the right index finger 2/2 this finger on a aluminum soda can 2 days prior. Initial examination without any concerning neurovascular motor findings on exam. No evidence of wound infection. There is a small approximate 1 cm superficial laceration to the distal phalanx along the medial aspect of the nailbed. X-ray imaging obtained that is negative for foreign body or additional injuries including fracture as noted by the ER. Discussed this with the patient including recommendations for supportive care. Bacitracin dressing with bandage applied prior to discharge. Patient given instructions for superficial wound care. Advised on follow-up with patient's primary care provider for reevaluation as needed. Discussed signs and symptoms of any worsening condition and when to consider reevaluation by the emergency department. Patient verbalized an understanding of this and is agreeable with the plan to be discharged home. Medical Records Medical records reviewed: Yes I reviewed the patient's medical records Imaging Data R index finger: Attestation: I personally reviewed and interpreted this imaging study as follows: My impression: Foreign body, no fracture Radiologist's impression: ITS Impressions Finger X-Ray 02/12/25 19:46 IMPRESSION: No abnormal radiopaque foreign body. Degenerative changes are noted as above. Impression dictated by: Salinas Tompkins M.D. 02/12/2025 8:40 PM Dictation Location: [place] [address] Electronically authenticated by: [id number] Y Date: 02/12/2025 20:40 Discharge Plan Discharge Chief Complaint: Extremity Injury, Upper Clinical Impression: Finger laceration Patient Disposition: Home, Self-Care Print Language: Malian Instructions: Finger Laceration (ED) Additional Instructions: Recommend applying triple antibiotic ointment or Vaseline and covering with a bandage for the next 48 hours. Monitor for any signs and symptoms of infection. Avoid picking or digging in the wound as this will impair and delay wound healing. Follow-up with your primary care provider for reevaluation as discussed. Referrals: Bhavesh Lopez DO [Primary Care Provider, Internal Medicine] - 1 week Discharge Date/Time: 02/12/25 20:42
[2025-02-12] MEDS: BACITRACIN 0.9 GM PACKET 1 PACKET TOPICAL (20:40)
== END 2025-02-12 20:42 | disposition home or self-care (01) ==
PROVIDERS: Emergency Provider Internal Medicine; PCP Internal Medicine
DX: S61.210A Laceration without foreign body of right index finger without damage to nail, initial encounter (principal); W26.8XXA Contact with other sharp object(s), not elsewhere classified, initial encounter
CPT/HCPCS: 73140; 99283

== ENCOUNTER 2025-02-17 09:46 | Outpatient (OUT) | payer OTHER, SELFPAY ==
--- OUTSIDE RECORDS SUMMARY | 2025-02-05 13:15 | XMS_ITS | Encounter Summary ---
Author Organization [facility] Address [address] [place] [address] Care Team Providers Care Pipe Or Steam Fitter Furnace Installer Name Role Phone Bhavesh Lopez Primary Care Provider [phone] Reason for Visit * Reason Comments Foot Pain Eagle Marie 69yo Ne w Patient presents with Left, lateral side,foot pain. Patient admits multiple fractures, sprains, with several casts in the late 1970's. Pain started 01/30/2025, NKI, noticed while walking, pain is constant, less when elevating, icing. 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 HPI Patient presents [...] does wear custom inserts and typically wears Sk[employer] tennis shoes to work Review of Systems [...] AM EDT Office Visit [facility] [address] [place] [phone] Alena Ott DPM [address] [place], [place] [phone] documented as of this encounter Procedures Procedure [...] limb documented in this encounter Care Teams Pipe Or Steam Fitter Furnace Installer Relationship Specialty Start Date End Date Bhavesh Lopez DO [address] [place] [address] PCP - General Internal Medicine 02/04/25 documented as of this encounter
--- OUTSIDE RECORDS SUMMARY | 2025-02-05 15:25 | XMS_ITS | Encounter Summary ---
Author Organization [facility] Address [address] [place] [address] Care Team Providers Care Still Operator Whiskey Name Role Phone Bhavesh Lopez Primary Care Provider [phone] Encounter Details Date Type Department Care Team (Late st Contact Info) Description 02/05/2025 3:25 PM EDT Ancillary Procedure [facility] [address] [place] [address] Social History Tobacco Use Types [...] AM EDT Office Visit [facility] [address] [place] [address] Alena Ott, DPM [address] [place], [place] [phone] documented as of this encounter Procedures Procedure [...] on filedocumented in this encounter Care Teams Still Operator Whiskey Relationship Specialty Start Date End Date Bhavesh Lopez DO [address] [place] [address] PCP - General Internal Medicine 02/04/25 documented as of this encounter
--- NOTE | 2025-02-17 | XR_ITS ---
[address] [address] Patient Name: KAYLEY SANDERSON MRN: [id number] date: 1955 Sex: M Assigned Patient Location: RAD Current Patient Location: [facility] Accession/Order Number: [id number] Exam Date: 02/17/2025 11:06 Report Date: 02/17/2025 11:06 At the request of: TONIO MORTON MD Procedure: XR knee RT 2V RIGHT KNEE - 2 views CLINICAL HISTORY: z47.1 aftercare following joint replacement surgery COMPARISON: None FINDINGS: Medial compartment prosthesis without radiographic complication. No significant knee joint effusion. No acute bony process. XR/XR knee RT 2V IMPRESSION: NO HARDWARE COMPLICATION. Impression dictated by: Luther Upton Jr., D.OSumanth 02/17/2025 11:06 AM Dictation Location: [place] [address] Electronically authenticated by: [id number] Y Date: 02/17/2025 11:06
--- OUTSIDE RECORDS SUMMARY | 2025-02-17 09:48 | XMS_ITS | Clinical Summary ---
Author Organization [facility] Address [address] [place] [address] Care Team Providers Care Energy Project Manager Name Role Phone Bhavesh Lopez Primary Care Provider [phone] Allergies No known active allergies Medications No [...] (1 - 1-dose 75+ series) 2031 Insurance [facility] CHOICE PLUS Advance Directives Documents on File Type Date Recorded Patient Fire Control Officer Expl anation Advance Directive(s) Advance Directive(s) 06/14/2007 Care Teams Energy Project Manager Relationship Specialty Start Date End Date Bhavesh Lopez DO [address] [facility] [place] [address] PCP - General 06/14/07
--- OUTSIDE RECORDS SUMMARY | 2025-02-17 09:49 | XMS_ITS | Encounter Summary ---
Author Organization [facility] Address [address] [facility] [place] [address] Care Team Providers Care Satellite Specialist Name Role Phone Bhavesh Lopez DO Primary Care Provider [phone] Encounter Details Date Type Department Care Team [...] AM EDT Office Visit [facility] [address] [place] [phone] Alena Ott, DPM [address] [place] [address] documented as of this encounter Visit Diagnoses Not on filedocumented in this encounter Care Teams Satellite Specialist Relationship Specialty Start Date End Date Bhavesh Lopez DO [address] [place] [address] PCP - General Internal Medicine 02/04/25 documented as of this encounter
--- OUTSIDE RECORDS SUMMARY | 2025-02-17 09:49 | XMS_ITS | Clinical Summary ---
Author Organization [facility] Address [address] [place] [address] Care Team Providers Care Landfill Gas Collection System Operator Name Role Phone Bhavesh Lopez Primary Care Provider [phone] Allergies No known active allergies Medications meloxicam [...] Description 02/05/2025 3:25 PM EDT [address] [facility] [address] [place] [address] 02/05/2025 1:15 PM EDT Office Visit [facility] [address] [place] [address] Alena Ott, DPStephie Pain in joint of left foot (Primary Dx); Arthritis of right foot; Peroneal tendonitis, left; Left foot pain 02/05/[address] [facility] [address] [place] [address] Alena Ott DPM 02/05/2025 Travel from Last [...] AM EDT Office Visit [facility] [address] [place] [address] Alena Ott, DPM [address] [place], [place] [phone] Health Maintenance Due Date Last Done Comments [...] from Last [address] [address] [facility] Care Teams Landfill Gas Collection System Operator Relationship Specialty Start Date End Date Bhavesh Lopez DO [address] [facility] [place] [address] PCP - General Internal Medicine 02/04/25
--- OUTSIDE RECORDS SUMMARY | 2025-02-17 09:49 | XMS_ITS | Patient Health Record ---
Author Organization [facility] Address [address] [place] [address] Care Team Providers Care Lay Out Carpenter Name Role Phone Martínez Casarez Unavailable [phone] Allergies No Known Allergies Reason For Referral [...] Problem Status W/U Status Risk Notes Problem [id number] Bilateral primar y osteoarthritis of knee (M17.0) Active confirmed Plan Of Treatment No Information Insurance Providers Payer Name Payer Address Payer Phone Subscriber Number Group Number Insured Name Patient Relationship to Insured Coverage Start Date Coverage End Date [facility] [address] [place] [phone] [id number] KAYLEY SANDERSON Self - patient is the insured Medications Administered Medication Instructions Date of Administration Dosage Notes GELSYN-3 10/31/2023 2 mL GELSYN-3 10/31/2023 2 mL GELSYN-3 11/07/2023 2 mL GELSYN-3 11/07/2023 2 mL GELSYN-3 11/12/2023 2 mL GELSYN-3 11/12/2023 2 mL
--- OUTSIDE RECORDS SUMMARY | 2025-02-17 09:49 | XMS_ITS | Encounter Summary ---
Author Organization [facility] Address [address] [place] [address] Care Team Providers Care Interior Design Principal Name Role Phone Bhavesh Lopez DO Primary Care Provider [phone] Encounter Details Date Type Department Care Team (Late Contact Info) Description 02/05/2025 Bamboo flowsheet [facility] [address] [place] [phone] Alena Ott, DPM [address] [place], [place] [phone] Social History Tobacco Use Types Packs/Day Years [...] Office Visit [facility] [address] [place] [phone] Alena Ott, VIELKA [address] [facility] [place], [place] [phone] documented as of this encounter Visit Diagnoses Not on filedocumented in this encounter Care Teams Interior Design Principal Relationship Specialty Start Date End Date Bhavesh Lopez DO [address] [facility] [place] [address] PCP - General Internal Medicine 02/04/25 documented as of this encounter
--- OUTSIDE RECORDS SUMMARY | 2025-02-17 09:49 | XMS_ITS | Clinical Summary ---
Author Organization [facility] Address [address] [place] [address] Care Team Providers Care Z Os Mainframe Systems Programmer Name Role Phone Bhavesh Lopez DO Primary Care Provider [phone] Allergies No known active allergies Medications tamsulosin (FLOMAX) 0.4 mg capsule Take 0.4 mg by mouth daily. Active traMADol (ULTRAM) 50 mg tablet Take 50 mg by mouth every 4 (four) hours as needed . 05/16/2017 Active Active Problems Problem Noted Date Diagnosed Date Kidney stone 05/20/2017 Assessment & Plan (05/20/2017 3:43 AM EDT): noted the onset of LLQ abdominal pain starting 05/19/17. Presented to ED where CT showed left ureteral stone. -Admit to OBS -NPO -Consult Urology: Dr. Kenney -Start IV fluids -Start Flomax, daily -Pain meds, prn -Anit-emetics.prn Immunizations Immunization Administration Dates Next Due INFLUENZA IIV4 6MO OR > FLUARIX/FLUZONE/AFLURIA [id number] 05/20/2017 Social History Tobacco Use Types Packs/Day Years Used Date Smoking Tobacco: Never Smokeless Tobacco: Never Alcohol Use Standard Drinks/Week Comments Yes 0 (1 standard drink = 0.6 oz pur e alcohol) rarely Sex and Gender Information Value Date Recorded Sex Assigned at Not on file Legal Sex Male 9:59 PM EDT Gender Identity Not on file Sexual Orientation Not on file Last Filed Vital Signs Vital Sign Reading Time Taken Comments Blood Pressure 112/65 05/20/2017 3:55 PM EDT Pulse 84 05/20/2017 3:30 PM EDT Temperature 36.8 C (98.2 F) 05/20/2017 3:55 PM EDT Respiratory Rate 12 05/20/2017 3:55 PM EDT Oxygen Saturation 98% 05/20/2017 3:55 PM EDT Inhaled Oxygen Concentration - - Weight 80.7 kg (178 lb) 05/19/2017 10:06 PM EDT Height 182.9 cm (6') 05/19/2017 10:06 PM EDT Body Mass Index 24.14 05/19/2017 10:06 PM EDT Plan of Treatment Health Maintenance Due Date Last Done Comments CT Colonography 1955 Colonoscopy 1955 Colorectal Cancer Screening/Monitoring 1955 Fecal DNA 1955 Fecal occult blood test (FOBT,FIT) 1955 PSA Level 1955 Tetanus: Every 10yrs 1955 Wellness Visit 1959 Depression Screening/Follow-Up (PHQ-2/9) 1968 Hepatitis C Screening 1974 Pneumococcal Vaccine: Age 50+ (1 of 1 - PCV) 6 Zoster Vaccines (1 of 2) 2006 Falls Risk Assessment 2021 COVID-19 Vaccine (1 - 2023- season) 2024 Influenza Vaccine (#1) 2025 05/20/2017 Respiratory Syncytial Virus Immunization: Risk, 60-74 Risk, or 75+ (1 - 1-dose 75+ series) 2031 Medical Devices Implanted Type Area Bias Machine Operator Helper Device Identifier Shelf Expiration Date Model / Serial / Lot Stent 4.8fr X 22-30cm Contour Pilar Length - [id number] Implanted:Qty: 1 on 05/20/2017 by Cale Kenney MD at [facility] Stent Left: Ureter [employer] U 12/06/2019 180-155 / / [id number] Insurance [facility] HMO/CHOICE PLUS/MCKAY/MCKAY PLUS Advance Directives For more information, please contact: [phone] * Full Code (Latest Code Status on File) Date Activated Date Inactivated Comments 05/20/2017 3:28 AM 05/20/2017 8:48 PM Care Teams Z Os Mainframe Systems Programmer Relationship Specialty Start Date End Date Bhavesh Lopez DO [address] [place] [address] PCP - General Internal Medicine 05/19/17
== END 2025-02-17 09:47 | disposition home or self-care (01) ==
LOC: RAD 09:46
PROVIDERS: PCP Internal Medicine; Visit Provider Orthopaedic Surgery
DX: Z47.1 Aftercare following joint replacement surgery (principal); Z96.651 Presence of right artificial knee joint
CPT/HCPCS: 73560

== ENCOUNTER 2025-05-16 07:52 | Outpatient (OUT) | payer OTHER, SELFPAY ==
--- OUTSIDE RECORDS SUMMARY | 2025-05-14 15:50 | XMS_ITS | Encounter Summary ---
Author Organization [facility] Address [address] [place] [address] Care Team Providers Care Transportation Aid Name Role Phone Bhavesh Lopez DO Primary Care Provider [phone] Reason for Visit * Reason Comments Follow-up Pf check Encounter Details Date Type Department Care Team (Latest Contact Info) Description 05/14/2025 3:50 PM EDT Clinical Support [facility] 112 [facility] 120 [place] [address] Miguelangel Almazan DPM 3006 [facility] 5 [place] [address] Plantar fasciitis (Primary Dx); Contracture of left ankle; Contracture of right ankle Social History Tobacco Use Types Packs/Day Years Used Date Smoking Tobacco: Never Tobacco Cessation:Counseling Given: Yes Alcohol Use Standard Drinks/Week Comments Yes 1 [...] - - Temperature - - Respiratory Rate 16 05/14/2025 3:53 PM EDT Oxygen Saturation - - Inhaled Oxygen Concentration - - Weight 81.6 kg (180 lb) 05/14/2025 3:53 PM EDT Height 182.9 cm (6') 05/14/2025 3:53 PM EDT Body Mass Index 24.41 05/14/2025 3:53 PM EDT documented in this encounter Progress Notes * Miguelangel Almazan DPM - 05/14/2025 3:50 PM EDT Patient: Eagle Marie : 1955 PCP: Bhavesh Lopez DO SUBJECTIVE Pt presents today for follow up of right HSS. Pt has had previous treatment of 1st steroid injection, nsaids, stretching with positive relief. Pt states current pain on a 1-10 scale is a 5 Pt presents to day for follow up tx. Patient is not currently covered by insurance for custom orthotics at this time. Allergies: No Known Allergies Past Medical History: No past medical history on file. Medications: Current Outpatient Medications: meloxicam (Mobic) 15 MG tablet, Take 1 tablet (15 mg) by mouth Daily, Disp: 30 tablet, Rfl: 0 Social History: Social History Socioeconomic History Marital status: Spouse name: Not on file Number of children: Not on file Years of education: Not on file Highest education level: Not on file Occupational History Not on file Tobacco Use Smoking status: Never Smokeless tobacco: Not on file Vaping Use Vaping status: Never Used Substance and Sexual Activity Alcohol use: Yes Alcohol/week: 1.0 standard drink of alcohol Types: 1 Cans of beer per week Comment: 1-2x monthly Drug use: Never Sexual activity: Not on file Other Topics Concern Not on file Social History Narrative Not on file Social Drivers of Health Financial Resource Strain: Not on file Food Insecurity: Not on file Transportation Needs: Not on file Physical Activity: Not on file Stress: Not on file Social Connections: Not on file Intimate Partner Violence: Not on file Housing Stability: Not on file ROS: General: denies fever, chills, fatigue, malaise Gastrointestinal: denies abdominal pain, ulcers, or changes in appetite or bowel habits Musculoskeletal: denies arthritis, denies loss of strength, pain to hip, knees, back Cardiovascular: denies CP, palpitations, irregular rhythms OBJECTIVE LE EXAM: DERM: Positive hair growth to b/l feet with good skin turgor noted. Negative openings in skin VASC: Palpable pedal pulsed b/l with warm to cool tibia to toes b/l NEURO: Gross sensation intact digits 1-10 and b/l feet ORTHO: 20 degrees inversion and 10 degrees eversion STJ b/l. Ankle ROM less than 10 degrees b/l. positive pain on palpation to right medial calcaneal tubercle XRAY: ASSESSMENT 1. Plantar fasciitis 2. Contracture of left ankle 3. Contracture of right ankle PLAN Patient to continue with oral anti - inflammatories as needed for pain and recommended OTC medications such as tylenol or Ibuprofen Pt given steroid injection to right medial calcaneal tubercle under US guidance with visualization of injected fluid into area of concern per imaging. Injection of 1cc kenalog 10 and 2cc xylocaine 2% plain. Informed patient of risks and benefits of injection including non resolution of symptoms,steroid flare, tendon damage or rupture. Pt consents to proceed. 2nd injection Patient is to continue with stretching excercizes daily with patient to continue with night stretching splint or manual stretching. Pt presents today for casting of a removable foot inserts/orthotics today that was accomplished with scanning of feet and sent to orthotics lab.(L3020 right and L3020 left foot). Pt to have signed ABN for device if needed. It was explained to the patient of a break in period for the devices. The patient is ambulatory maybenefit functionally for this device. It may be used for the following conditions as noted per EMR.Patient understands [id number]-cyzkrs cost for devices Miguelangel Almazan DPM documented in this encounter Plan of Treatment Upcoming Encounters Date Type Department Care Team (Late st Contact Info) Description 05/28/2025 4:50 PM EDT Office Visit [facility] 112 [facility] 120 [place] [address] Miguelangel Almazan DPM 3006 [facility] 5 [place] [address] documented as of this encounter Visit Diagnoses Diagnosis Plantar fasciitis- Primary Plantar fascial fibromatosis Contracture of left ankle Contracture of right ankle documented in this encounter Care Teams Transportation Aid Relationship Specialty Start Date End Date Bhavesh Lopez DO [address] [facility] [place] [address] PCP - General Internal Medicine 02/04/25 documented as of this encounter
--- OUTSIDE RECORDS SUMMARY | 2025-05-16 07:56 | XMS_ITS | Encounter Summary ---
Author Organization [facility] Address [address] [place] [address] Care Team Providers Care Christmas Tree Farm Crew Boss Name Role Phone Bhavesh Lopez DO Primary Care Provider [phone] Encounter Details Date Type Department Care Team (Late Contact Info) Description 05/14/2025 Abstract [facility] [address] [facility] 120 [place] [address] Miguelangel Almazan DPM [address] [address] Social History Tobacco Use Types Packs/Day Years [...] Department Care Team (Late Contact Info) Description 05/28/2025 4:50 PM EDT Office Visit [facility] [address] [facility] 120 [place] [address] Miguelangel Almazan DPM [address] [address] documented as of this encounter Visit Diagnoses Not on filedocumented in this encounter Care Teams [employer] Crew Boss Relationship Specialty Start Date End Date Bhavesh Lopez DO [address] [facility] [place] [address] PCP - General Internal Medicine 02/04/25 documented as of this encounter
--- OUTSIDE RECORDS SUMMARY | 2025-05-16 07:56 | XMS_ITS | Encounter Summary ---
Author Organization [facility] Address [address] [place] [address] Care Team Providers Care Customer Development Representative Name Role Phone Bhavesh Lopez DO Primary Care Provider [phone] Encounter Details Date Type Department Care Team (Latest Contact Info) Description 05/14/2025 Travel Social History Tobacco Use Types Packs/Day [...] EDT Office Visit [facility] 112 [facility] 120 [place] [address] Miguelangel Almazan DPM 3006 [facility] 5 [place] [address] documented as of this encounter Visit Diagnoses Not on filedocumented in this encounter Care Teams Customer Development Representative Relationship Specialty Start Date End Date Bhavesh Lopez DO [address] [facility] [address] PCP - General Internal Medicine 02/04/25 documented as of this encounter
--- OUTSIDE RECORDS SUMMARY | 2025-05-16 07:56 | XMS_ITS | Clinical Summary ---
Author Organization [facility] Address [address] [place] [address] Care Team Providers Care Ship Engineer Name Role Phone Bhavesh Lopez DO Primary Care Provider [phone] Allergies No known active allergies Medications meloxicam (Mobic) 15 MG tabletIndicatio ns:Plantar fasciitis Take 1 tablet (15 mg) by mouth Daily 30 tablet 5 05/30/20 25 Active meloxicam (Mobic) 15 MG tablet Take 15 mg by mouth Daily 5 04/30/20 25 Discontinu ed(Therapy completed) Active Problems No known active problems Encounters Date Type Department Care Team Description 05/14/2025 3:50 PM EDT Clinical Support [facility] [address] [place] [address] Miguelangel Almazan DPM Plantar fasciitis (Primary Dx); Contracture of left ankle; Contracture of right ankle 05/14/2025 Abstract [facility] [address] [facility] 120 [place] [address] Miguelangel Almazan DPM 05/14/2025 Abstract [facility] [address] [facility] 120 [place] [address] Miguelangel Almazan DPM 05/14/2025 Bamboo flowsheet [facility] [address] [facility] 120 [place] [address] Miguelangel Almazan DPM 05/14/2025 Travel 04/30/2025 3:20 PM EDT Office Visit [facility] 112 [facility] 120 [place] [address] Miguelangel Almazan DPM Heel spur, right (Primary Dx); Plantar fasciitis; Contracture of left ankle; Contracture of right ankle 04/30/2025 Telephone [facility] [address] [address] [place] [address] Miguelangel Almazan DPM Casting For Braces Or Orthotics 04/30/2025 Bamboo flowsheet [facility] [address] [place] [address] Miguelangel Almazan DPM 04/30/2025 Travel from Last 3 Months Family History [...] Mass Index 24.41 05/14/2025 3:53 PM EDT Plan of Treatment Upcoming Encounters Date Type Department Care Team (Late st Contact Info) Description 05/28/2025 4:50 PM EDT Office Visit [facility] [address] [place] [address] Miguelangel Almazan DPM 3006 [facility] 5 [place] [address] Health Maintenance Due Date Last Done Comments CT Colonography 1955 Colonoscopy 1955 Colorectal Cancer Screening 1955 FIT-DNA 1955 FIT 1955 FOBT 1955 Sigmoidoscopy 1955 Pneumococcal Vaccine: 65+ Ye ars (1 of 1 - PCV) 2006 Influenza Vaccine Completed 05/05/2025, , 06/01/2022, Additional history exists Insurance [facility] Care Teams Ship Engineer Relationship Specialty Start Date End Date Bhavesh Lopez DO [address] [facility] [place] [address] PCP - General Internal Medicine 02/04/25
--- OUTSIDE RECORDS SUMMARY | 2025-05-16 07:56 | XMS_ITS | Clinical Summary ---
Author Organization [facility] Address [address] [place] [address] Care Team Providers Care International Relations Teacher Name Role Phone Unavailable Primary Care Provider Unavailabl e Social History Tobacco Use Types Packs/Day Years Used Date Smoking Tobacco: Never Assessed Sex and Gender Information Value Date Recorded Sex Assigned at Not on file Legal Sex Male 12:32 AM EDT Gender Identity Not on file Sexual Orientation Not on file Last Filed Vital Signs Vital Sign Reading Time Taken Comments Blood Pressure 127/77 07/21/2020 1:15 PM EST Pulse 66 07/21/2020 1:15 PM EST Temperature 36.5 C (97.7 F) 07/21/2020 1:14 PM EST Respiratory Rate - - Oxygen Saturation - - Inhaled Oxygen Concentration - - Weight 77.1 kg (170 lb) 07/21/2020 1:10 PM EST Height 182.9 cm (6') 07/21/2020 1:10 PM EST Body Mass Index 23.06 07/21/2020 1:10 PM EST Plan of Treatment Not on file
--- OUTSIDE RECORDS SUMMARY | 2025-05-16 07:56 | XMS_ITS | Encounter Summary ---
Author Organization [facility] Address [address] [place] [address] Care Team Providers Care Early Childhood Education Specialist Name Role Phone Bhavesh Lopez DO Primary Care Provider [phone] Encounter Details Date Type Department Care Team ([facility] Contact Info) Description 05/14/2025 Bamboo flowsheet [facility] [address] [facility] 120 [place] [address] Miguelangel Almazan DPM [address] [address] Social History Tobacco Use Types [...] EDT Office Visit [facility] [address] [facility] 120 [place] [address] Miguelangel Almazan DPM [address] [address] documented as of this encounter Visit Diagnoses Not on filedocumented in this encounter Care Teams Early Childhood Education Specialist Relationship Specialty Start Date End Date Bhavesh Lopez DO [address] [facility] [place] [address] PCP - General Internal Medicine 02/04/25 documented as of this encounter
--- OUTSIDE RECORDS SUMMARY | 2025-05-16 07:56 | XMS_ITS | Clinical Summary ---
Author Organization [facility] Address [address] [place] [address] Care Team Providers Care Composition Molder Name Role Phone Bhavesh Lopez Primary Care Provider [phone] Allergies No known active allergies Medications No [...] Diabetes Screening 2001 Fecal Occult Blood 2001 Sigmoidoscopy 2001 Pneumococcal Vaccine: 50+ (1 of 1 - PCV) 2006 Shingrix Vaccine (1 of 2) 2006 Advance Directive Discussion 07/30/2024 Covid-19 Vaccine (1 - 2024-26 season) 2025 Influenza Vaccine (#1) 2025 RSV Vaccine (1 - 1-dose 75+ series) 2031 Insurance [facility] CHOICE PLUS Advance Directives Documents on File Type Date Recorded Patient Teacher Cclc Expl anation Advance Directive(s) Advance Directive(s) 06/14/2007 Care Teams Composition Molder Relationship Specialty Start Date End Date Bhavesh Lopez DO [address] [facility][1] [place] [id number] PCP - General 06/14/07
--- OUTSIDE RECORDS SUMMARY | 2025-05-16 07:56 | XMS_ITS | Clinical Summary ---
Author Organization [facility] Address [address] [place] [address] Care Team Providers Care Lead Atg Developer Name Role Phone Bhavesh Lopez DO Primary Care Provider [phone] Allergies No known active allergies Medications tamsulosin [...] Due INFLUENZA IIV4 6MO OR > FLUARIX/FLUZONE/AFLURIA 32512 05/20/2017 Social History Tobacco Use Types Packs/Day [...] 2021 COVID-19 Vaccine (1 - 2023- season) 2025 Influenza Vaccine (#1) 2025 05/20/2017 Respiratory Syncytial Virus Immunization: Risk, 60-74 Risk, or 75+ (1 - 1-dose 75+ series) 2031 Medical Devices Implanted Type Area Maintenance Of Way Supervisor Device Identifier Shelf Expiration Date Model / Serial / Lot Stent 4.8fr X 22-30cm Contour Pilar Length - [id number] Implanted:Qty: 1 on 05/20/2017 by Cale Kenney MD at [facility] Stent Left: Ureter [employer] U 12/06/2019 180-155 / / [id number] Insurance [facility] HMO/CHOICE PLUS/MCKAY/MCKAY PLUS Advance Directives For more information, please contact: [phone] * Full Code (Latest Code Status on File) Date Activated Date Inactivated Comments 05/20/2017 3:28 AM 05/20/2017 8:48 PM Care Teams Lead Atg Developer Relationship Specialty Start Date End Date Bhavesh Lopez DO [address] [place] [address] PCP - General Internal Medicine 05/19/17
--- OUTSIDE RECORDS SUMMARY | 2025-05-16 07:56 | XMS_ITS | Encounter Summary ---
Author Organization [facility] Address [address] [place] [address] Care Team Providers Care Commercial Lending Relationship Manager Name Role Phone Bhavesh Lopez Primary Care Provider [phone] Reason for Visit * Reason Onset Date Comments Casting For Braces Or Orthotics 04/30/2025 Encounter Details Date Type Department Care Team ([facility] st Contact Info) Description 04/30/2025 Telephone [facility] 112 [facility] 120 [place] [address] Miguelangel Almazan, DPStephie 3006 [facility] [place] [address] Casting For Braces Or Orthotics Social History Tobacco Use Types Packs/Day Years [...] on file documented as of this encounter Miscellaneous Notes * Telephone Encounter - CARLEEN STOCK - 05/14/2025 4:27 PM EDT Patient aware of benefits and oop cost. Scanned for orthotics and sent 05/14. Self pay form signed 05/14 * Telephone Encounter - CARLEEN STOCK - 05/13/2025 12:50 PM EDT Per call w/ moris @ [facility] Code L3020 is not a covered benefit Ref# [id number] * Telephone Encounter - Miguelangel Almazan DPM - 04/30/2025 3:41 PM EDT Please precertify for custom orthotics for the diagnosis of plantar fasciitis documented in this encounter Plan of Treatment Upcoming Encounters Date Type Department Care Team (Late st Contact Info) Description 05/28/2025 4:50 PM EDT Office Visit [facility] 112 [facility] 120 [place] [address] Miguelangel Almazan DPM 3006 [facility] [address] [place] [address] documented as of this encounter Visit Diagnoses Not on filedocumented in this encounter Care Teams Commercial Lending Relationship Manager Relationship Specialty Start Date End Date Bhavesh Lopez DO [address] [facility] [place] [address] PCP - General Internal Medicine 02/04/25 documented as of this encounter
--- OUTSIDE RECORDS SUMMARY | 2025-05-16 07:56 | XMS_ITS | Encounter Summary ---
Author Organization [facility] Address [address] [place] [address] Care Team Providers Care Soil Surveyor Name Role Phone Bhavesh Lopez DO Primary Care Provider [phone] Encounter Details Date Type Department Care Team (Late Contact Info) Description 05/14/2025 Abstract [facility] [address] [email or web address] [address] [place] [address] Miguelangel Almazan DPM [address] [address] Social History Tobacco Use Types [...] Visit [facility] [address] [email or web address] [address] [place] [address] Miguelangel Almazan DPM [address] [address] documented as of this encounter Visit Diagnoses Not on filedocumented in this encounter Care Teams Soil Surveyor Relationship Specialty Start Date End Date Bhavesh Lopez DO [address] [facility] [place] [address] PCP - General Internal Medicine 02/04/25 documented as of this encounter
--- OUTSIDE RECORDS SUMMARY | 2025-05-16 07:56 | XMS_ITS | Patient Health Record ---
Author Organization [facility] Address [address] [place] [address] Care Team Providers Care House Calls Nurse Name Role Phone Martínez Casarez Unavailable [phone] Allergies No Known Allergies Reason For Referral [...] Problem Status W/U Status Risk Notes Problem [id number] Bilateral primar y osteoarthritis of knee (M17.0) Active confirmed Plan Of Treatment No Information Insurance Providers Payer Name Payer Address Payer Phone Subscriber Number Group Number Insured Name Patient Relationship to Insured Coverage Start Date Coverage End Date [facility] [address] [place] [address] [phone] [id number] KAYLEY SANDERSON Self - patient is the insured Medications Administered Medication Instructions Date of Administration Dosage Notes GELSYN-3 10/31/2023 2 mL GELSYN-3 10/31/2023 2 mL GELSYN-3 11/07/2023 2 mL GELSYN-3 11/07/2023 2 mL GELSYN-3 11/12/2023 2 mL GELSYN-3 11/12/2023 2 mL
--- OUTSIDE RECORDS SUMMARY | 2025-05-16 07:57 | XMS_ITS | CCD ---
Author Organization [facility] Inform ion Partnership [facility] Care Team Providers Care Education Nurse Name Role Phone BHAVESH LOPEZ Unavailable Unavailable [...] Consulting Unavailable KAYLEY FERNANDEZ JR Admitting Unavailable BALL, DR EDMONDS Primary Care Unavailable OLEGFELICITAS Consulting Unavailable KAYLEY FERNANDEZ JR Admitting Unavailable [...] Unavailable DO Bhavesh Lopez Primary Care Provider MD Rakan Morton II Attending Provider [phone] DO Bhavesh Lopez Primary Care Provider MD Rakan Morton II Attending Provider DO Bhavesh Lopez Primary Care Provider MD Rakan Morton II Attending Provider DO Bhavesh Lopez Primary Care Provider MD Rakan Morton II Attending Provider Ball DO, Bhavesh Primary Care Provider Rakan Morton MD Attending Provider Ball DO, Bhavesh Primary Care Provider Rakan Morton MD Attending Provider Ball, Bhavesh Primary Care Unavailable Yoselin II, Rakan Crad Attending Unavailabl e Yoselin II, Rakan Card Admitting Unavailabl e Yoselin II, Rakan Card Attending Unavailabl e Yoselin II, Rakan Card Admitting Unavailabl e Ball, Bhavesh Primary Care Unavailable Yoselin II, Rakan Card Attending Unavailabl e Culberson II, Rakan Card Admitting Unavailabl e Ball, Bhavesh Primary Care Unavailable Yoselin II, Rakan Card Admitting Unavailabl e Culberson II, Rakan Card Attending Unavailabl e Ball, Bhavesh Primary Care Unavailable Culberson II, Rakan Card Admitting Unavailabl e Culberson II, Rakan Card Attending Unavailabl e Ball, Bhavesh Primary Care Unavailable Culberson II, Rakan Card Attending Unavailabl e Culberson II, Rakan Card Admitting Unavailabl e Ball, Bhavesh Primary Care Unavailable Culberson II, Rakan Card Attending Unavailabl e Yoselin II, Rakan Card Admitting Unavailabl e Ball, Bhavesh Primary Care Unavailable Yoselin II, Rakan Card Attending Unavailabl e Yoselin II, Rakan Card Admitting Unavailabl e Ball, Bhavesh Primary Care Unavailable Yoselin II, Rakan Card Attending Unavailabl e Yoselin II, Rakan Card Admitting Unavailabl e Ball, Bhavesh Primary Care Unavailable Yoselin II, Rakan Card Attending Unavailabl e Culberson II, Rakan Card Admitting Unavailabl e Ball, Bhavesh Primary Care Unavailable Ball DO, Bhavesh E Primary Care Provider Ball DO, Bhavesh Primary Care Provider Rakan Morton MD Attending Provider Juhi Garibay CMA Attending Provider Unavaila ALENA Stahl Attending Unavailable ALENA ARRIOLA Referring Unavailable MIGUELANGEL ALMAZAN Attending Unavailable Ball DO, Bhavesh Primary Care Provider Rakan Morton MD Attending Provider Bhavesh Lopez DO Attending Provider [phone] Bhavesh Lopez DO Primary Care Provider Allergies Allergy Classification Reported Allergen(s) Allergy Type Date of Onset Reaction(s) Facility (2 sources) Triamcinolone Drug Allergy 3 Unknown [place] Other (1 source) Triamcinolone Drug Allergy 4 [facility] Repository Medications Current Medications Medication Drug Class(es) Dates Sig (Normalized) Sig (Original) diclofenac sodium 0.01 mg/mg topical gel (4 sources) Nonsteroidal Anti-inflammatory Drug Start: 11-26-2024 Diclofenac Sodium (Voltaren Arthritis Pain) 1 % gel Active 2 GM TOPICAL Four times daily November 26, 2024 12:00am apply small amount to effected area 4-5 times daily Complies with drug therapy Start: 11-26-2024 Diclofenac Sod ium (Voltaren Arthritis Pain) 1 % gel Active 2 GM TOPICAL Four times daily November 26, 2024 12:00am apply small amount to effected area 4-5 times daily erythromycin 0.005 mg/mg ophthalmic ointment (2 sources) Macrolide, Macrolide Antimicrobial Start: 03-30-2023 Erythromycin 5 MG/GM 1/2 inch application into the lower eyelid of affected eye Ophthalmic Four times a day for 5 days Mar, Active meloxicam 15 mg oral tablet (20 sources) Nonsteroidal Anti-inflammatory Drug Start: 08-26-2024 End: 05-30-2025 take 1 tablet by mouth once daily meloxicam (Mobic) 15 MG tablet Indications: Plantar fasciitis Take 1 tablet (15 mg) by mouth Daily 30 tablet 04/30/2025 05/30/2025 Active Start: 09-17-2023 End: 09-20-2023 take 1 tablet by mouth once daily Meloxicam 15 mg tablet Discontinued 15 MG PO Daily September 17, 2023 1:00am September 20, 2023 10:10am Meloxicam 15 MG Oral for 45 Days Active [place] (No Known Home Meds) (5 sources) Start: 01-03-2024 [place] (No Kn own Home Meds) Active January [...] Sig (Original) acetaminophen 500 mg oral tablet (17 sources) Start: 02-07-2024 End: 04-02-2024 take 2 tablets by mouth every eight hours Acetaminophen 500 mg tablet Discontinued 1000 MG PO Q8H 180 February [...] 05/25/2017 Active amoxicillin 500 mg oral tablet (15 sources) Penicillin-class Antibacterial Start: 05-21-2024 End: 08-29-2024 [...] 09-17-2023 Amoxicillin-Pot Clavulanate 875-125 mg tablet Discontinued June 07, 2017 1:00am September 17, 2023 1:07pm Start: 05-16-2017 End: 05-25-2017 take 1 tablet by mouth twice daily amoxicillin-clavulanate (AUGMENTIN) 875-125 mg per tablet Take 1 tablet by mouth 2 (two) times a day For 10 days. 05/16/2017 05/25/2017 Active aspirin 81 mg delayed release oral tablet (17 sources) Platelet Aggregation Inhibitor, Nonsteroidal Anti-inflammatory Drug Start: 02-07-2024 End: 04-02-2024 take 1 tablet by mouth twice daily Aspirin 81 mg tablet,delayed release (DR/EC) Discontinued 81 MG PO Twice daily 70 February 07, 2024 12:00am April 02, 2024 11:40am DO NOT RECONCILE UNTIL DOS:02/18/2024 MED TO BED cefadroxil 500 mg oral capsule (17 sources) Cephalosporin Antibacterial Start: 02-07-2024 End: 04-02-2024 take 1 capsule by mouth every twelve hours Cefadroxil 500 mg capsule Discontinued 500 MG PO Q12H 14 February 07, 2024 12:00am April 02, 2024 11:40am DO NOT RECONCILE UNTIL DOS:02/18/2024 MED TO BED celecoxib 200 mg oral capsule (17 sources) Nonsteroidal Anti-inflammatory Drug Start: 02-07-2024 End: [...] tablet Discontinued 500 MG PO Q12H 8 November 13th, 2017 1:00am September 17, 2023 1:07pm administer [...] Discontinued docusate sodium 50 mg / sennosides, half-way 8.6 mg oral tablet (17 sources) Start: 02-07-2024 End: 04-02-2024 take 2 [...] 05/20/2017 Discontinued ondansetron 4 mg oral tablet (18 sources) Serotonin-3 Receptor Antagonist Start: 02-07-2024 End: [...] mg oxyCODONE hydrochloride 5 mg oral tablet (17 sources) Opioid Agonist Start: 02-07-2024 End: 04-02-2024 take 1 tablet by mouth every four hours as needed for pain Oxycodone 5 mg tablet Discontinued 5 MG PO Q4H as needed for Pain 42 February 07, 2024 April 02, 2024 11:41am DO NOT RECONCILE UNTIL DOS:02/18/2024 MED TO BED pantoprazole 20 mg delayed release oral tablet (17 sources) Proton Pump Inhibitor Start: 02-07-2024 End: 04-02-2024 take 1 tablet by mouth once daily Pantoprazole (Protonix) 20 mg tablet,delayed release (DR/EC) Discontinued 20 MG PO daily 35 35 February 07, 2024 12:00am April 02, 2024 11:41am DO NOT RECONCILE UNTIL DOS:02/18/2024 MED TO BED polyethylene glycol 3350 10683 mg powder for oral solution (17 sources) Osmotic Laxative Start: 02-07-2024 End: 04-02-2024 [...] 09-17-2023 Tramadol 50 mg tablet Discon tinued June 07, 2017 1:00am September 17, 2023 1:07pm Start: 06-07-2017 End: 09-17-2023 Tramadol 50 mg [...] pathological fracture] Onset: 4 01-03-2024 Chronic Other acquired deformities (3 sources) Contracture of joint of left ankle; Translations: [Contracture, left ankle] 04-30-2025 Chronic Other acquired deformities (3 sources) Contracture of joint of right ankle; Translations: [Contracture, right ankle] 04-30-2025 Chronic Other aftercare (15 sources) Patient encounter status; Translations: [Aftercare following joint replacement surgery] 03-05-2024 Chronic Other aftercare (17 sources) Aftercare following joint replacement surgery; Translations: [Aftercare following joint replacement] Onset: 4 2024 Chronic Other aftercare (20 sources) Long-term current use of drug therapy; Translations: [Other 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 (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) drug therapy] 01-03-2024 Episodic Other and unspecified benign neoplasm (2 sources) History of polyp of colon; Translations: [Personal history of colonic polyps] Episodic Other connective tissue disease (15 sources) History of total knee arthroplasty; Translations: [...] [Pain in left foot] 02-05-2025 Episodic Other connective tissue disease (2 sources) Calcaneal spur of right foot; Translations: [Calcaneal spur, right foot] 04-30-2025 Episodic Other connective tissue disease (3 sources) Plantar fasciitis; Translations: [Plantar fascial fibromatosis] 04-30-2025 Episodic Other eye disorders (1 source) Other specified disorders of eye and adnexa Episodic Other gastrointestinal disorders (1 source) H/O: gastrointestinal disease; Translations: [Personal history of other diseases of the digestive system] Episodic Other injuries and conditions due to external causes (1 source) Other injury of unspecified body region, initial encounter Episodic Other non-traumatic joint disorders (20 sources) Pain in right knee; Translations: [Right knee pain] Onset: 4 01-02-2024 Episodic Other non-traumatic joint disorders (2 sources) [...] Translations: [CONTACT W/AND (SUSP) EXPOS COVID-19] Onset: 1 Past or Other Problems Problem Classification Problem [...] 08-02-2021 Episodic Other aftercare (1 source) Other care home (current) drug therapy; Translations: [Other 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 (current) drug therapy] Onset: 01-03-2024 Episodic Other [...] Translations: [Tinnitus, left ear] Onset: 05-24-2016 Episodic Otitis media and related conditions (1 [...] the talus. Small plantar heel spur present. [facility] Healthcare Radiology Study observation (narrative) [facility] X-ray reportOrdered By: Archie Upton on 11-26-2024 Study report [facility] [address] [place] [address] XRay Report Signed Patient: Kayley Sanderson MR#: [id number] : 1955 Acct:[id number] Age/Sex: 69 / M ADM Date: 5 Loc: SOXD Room: Type: REG CLI Attending Dr: Rakan [...] COMPLICATION. Impression dictated by: Luther Upton Jr., DSumanthOSumanth 11/26/2024 12:49 PM Dictation Location: [place] [address] Transcribed By: [facility] 11/26/24 1249 Dictated By: Luther Upton Jr, DO 11/26/24 1248 Signed By: 11/26/24 1249 [facility] XR knee RT 3V - NOT FOR ER U Black 11-26-2024 XR knee RT 3V - NOT FOR ER USE [facility] [address] [place] [address] XRay Report Signed Patient: Kayley Sanderson MR#: [id number] 66 : 1955 Acct:[id number] Age/Sex: 69 / M ADM Date: 11/26/24 Loc: SOXD Room: Type: REG CLI Attending Dr: Rakan [...] IMPRESSION: NO HARDWARE COMPLICATION. Impression dictated by: Luhter Upton Jr., DSumanthOSumanth 11/26/2024 12:49 PM Dictation Location: RADIO-PC-22 Transcribed By: KAR 11/26/24 1249 Dictated By: Luther Upton Jr, DO 11/26/24 1248 Signed By: 11/26/24 1249 U[facility] X-ray reportOrdered By: Dionicio Tyson on 08-26-2024 Study report [facility] [address] [place] [address] XRay Report Signed Patient: Kayley Sanderson MR#: [id number] : 1955 Acct:[id number] Age/Sex: 69 / M ADM Date: 5 Loc: [facility] Room: Type: [facility] Attending Dr: Rakan Morton II, MD [...] 3:13 PM Dictation Location: RADIO-PC-23 Transcribed By: [facility] 08/26/24 1513 Dictated By: Bam Tyson MD 08/26/24 151 Signed By: 08/26/24 1513 [facility] Work Phone: XR knee RT 2Von 08-26-2024 XR knee RT 2V [facility] [address] [place] [address] XRay Report Signed Patient: Kayley Sanderson MR#: [id number] 66 : 1955 Acct:[id number] Age/Sex: 69 / M ADM Date: 08/26/24 Loc: [facility] Room: Type: [facility] CLI Attending Dr: Rakan Morton II, MD [...] Bam Tyson M.D.08/26/2024 3:13 PM Dictation Location: [place] [address] Transcribed By: [facility] 08/26/24 151 Dictated By: Bam Tyson MD 08/26/24 151 Signed By: 08/26/24 1513 Normal [facility] XR knee RT 2Von 05-14-2024 XR knee RT 2V [facility] [place] [address] XRay Report Signed Patient: Kayley Sanderson MR#: [id number] 66 : 1955 Acct:[id number] Age/Sex: 69 / M ADM Date: 05/14/24 Loc: [facility] Room: Type: [facility] CLI Attending Dr: Rakan Morton II, MD Copies to: Rakan Morton MD Ordering Provider: Rakan Morton MD Date of Service: 05/14/24 XR/XR knee RT 2V: Z47.1 - Aftercare following joint replacement surgery ([id number]) XR/XR femur RT 2V*: Z47.1 - Aftercare following joint replacement surgery ([id number]) XR/XR tibia fibula RT 2V*: Z47.1 - [...] Lidia Tompkins M.D.05/14/2024 1:32 PM Dictation Location: [place] [address] Transcribed By: [facility] 05/14/24 1332 Dictated By: Lidia Tompkins II, MD 05/14/24 1322 Signed By: 05/14/24 1332 Normal [facility] XR knee RT 3V - NOT FOR ER U Black 04-02-2024 XR knee RT 3V - NOT FOR ER USE [facility] [address] [place] [address] XRay Report Signed Patient: Kayley Sanderson MR#: [id number] 66 : 1955 Acct:[id number] Age/Sex: 69 / M ADM Date: 04/02/24 [facility] Room: Type: [facility] Attending Dr: Rakan Morton II, MD [...] COMPLICATION. Impression dictated by: Luther Upton Jr., DSumanthOSumanth04/02/2024 3:17 PM Dictation Location: [place] [address] Transcribed By: [facility] 04/02/24 151 Dictated By: Luther Upton Jr, DO 04/02/241515 Signed By: 04/02/241516 Normal [facility] ABO/Rh Retypeon 02-18-2024 ABO/RH Recheck Result Negative Normal [facility] Comment on above: Result Comment: PERF ORMED BY: [facility] [address] [place] [address] PATHOLOGIST CHILD CARE ASSOCIATE TEACHER AVERY Andino 02-18-2024 L Specimen: [id number] Received: 02/18/24 Status: SOUNataliya Re Num: [id number] Spec Type: Surgical Subm Dr: Rakan Morton MD Tissues: A Joint/Knee (RT KNEE BONE AND TISSUE) Procedures: HE/2, Gross/Micro L4, Decalcification Age/ Patient Sex Location Account Attending Physician Kayley Sanderson/M [place] [id number] Rakan Morton MD SPEC NUM: [id number] RECD: 02/18/24 STATUS: CHACE REQ NUM: [id number] DEXTER: 02/18/24- SUBM DR: Rakan Morton MD ENTERED: 02/18/[address]: SPEC TYPE: Surgical DEPT: S ORDERED: [...] bone matrix. A gross photo is included. Senior Oracle Adf Developer sections are submitted in A1 (bone following decalcification)-A2 (soft tissue). CPT Codes 37738, 41009 Specimen: [id number] Received: 02/18/24 Status: CHACE Finney Num: [id number] Spec Type: Surgical Subm Dr: Rakan Morton MD Tissues: A Joint/Knee (RT KNEE BONE AND TISSUE) Procedures: HE/2, Gross/Micro L4, Decalcification Patient: CynthiaKayley Abdias [id number] (Continued) Specimen: [id number] Received: 02/18/24 (Continued) Signed (signature on file) Santy Alberts Jr., MD 02/20/24 1054 Specimen: [id number] Received: 02/18/24 Status: CHACE Reg Num: [id number] Spec Type: Surgical Subm Dr: Rakan Morton MD Tissues: A Joint/Knee (RT KNEE BONE AND TISSUE) Procedures: HE/2, Gross/Micro L4, Decalcification Patient: Kayley Sanderson [id number] (Continued) Specimen: [id number] Received: 02/18/24 (Continued) BONE AND TISSUE Specimen: [id number] Received: 02/18/24 Status: CHCAE Finney Num: [id number] Spec Type: Surgical Subm Dr: Rakan Morton MD Tissues: A Joint/Knee (RT KNEE BONE AND TISSUE) Procedures: HE/2, Gross/Micro L4, Decalcification Patient: Kayley Sanderson [id number] (Continued) Signed (signature on file) Santy Alberts Jr., MD 02/20/24 1054 [facility] XR knee RT 2Von 02-18-2024 XR knee RT 2V [facility] Main [address] [address] XRay Report Signed Patient: Kayley Sanderson MR#: [id number] 66 : 1955 Acct:[id number] Age/Sex: 68 / M ADM Date: 02/18/24 Loc: [place] Room: Type: [facility] Attending Dr: Rakan Morton II, [...] Gael Kenney M.D.02/18/2024 2:35 PM Dictation Location: [place] [address] Transcribed By: [facility] 02/18/24 1435 Dictated By: Gael Kenney DO 02/18/24 1428 Signed By: 02/18/24 1435 Normal [facility] XR tibia fibula RT 2V*on XR tibia fibula RT 2V* [facility] [address] [place] [address] XRay Report Signed Patient: Kayley Sanderson MR#: [id number] : 1955 Acct:[id number] Age/Sex: 68 / M ADM Date: 02/07/24 Loc: [facility] Room: Type: [facility] Attending Dr: Rakan Morton II, MD Copies to: Rakan Morton MD Ordering Provider: Rakan Morton MD Date of Service: 02/07/24 XR/XR femur RT 2V*: M17.11 - Unilateral primary osteoarthritis, right knee ([id number]) XR/XR tibia fibula RT 2V*: M17.11 - [...] Kathia Escobar M.D.02/07/2024 4:30 PM Dictation Location: [place] [address] Transcribed By: [facility] 02/07/24 1630 Dictated By: Kathia Escobar MD 02/07/24 1615 Signed By: 02/07/24 1630 Normal [facility] Automated basophil %Ordered By: Rakan Morton on 02-01-2024 Basophils/100 WBC (Bld) 0.4 % Normal . [facility] Comment on above: Performed By: #### B MP, CBC #### [facility] [address] [place] [address] [place] #### FRUC #### [facility] , Automated basophil countOrde red By: Rakan Morton on 02-01-2024 Basophils (Bld) [#/Vol] 0.0 10*3/uL Normal 0.0-0.2 [facility] Comment on above: Result Comment: PERF ORMED BY: [place] [address] PATHOLOGIST CHILD CARE ASSOCIATE TEACHER AVERY HAWKINS M.D. Performed By: #### B MP, CBC #### [place] [address] [place] #### FRUC #### [facility] , Automated blood monocyte cou ntOrdered By: Rakan Morton on 02-01-2024 Monocytes (Bld) [#/Vol] 0.5 10*3/uL Normal 0.0-0.8 [facility] Comment on above: Performed By: #### B MP, CBC #### [place] [address] [place] #### FRUC #### [facility] , Automated eosinophil %Ordere d By: Rakan Morton on 02-01-2024 Eosinophils/100 WBC (Bld) 0.5 % Normal . [facility] Comment on above: Performed By: #### B MP, CBC #### [place] [address] [place] #### FRUC #### [facility] , Automated eosinophil countOr dered By: Rakan Morton on 02-01-2024 Eosinophils (Bld) [#/Vol] 0.0 10*3/uL Normal 0.0-0.45 [facility] Comment on above: Performed By: #### B MP, CBC #### [facility] [address] [place] [address] [place] #### FRUC #### [facility] , Automated monocyte %Ordered By: Rakan Morton on 02-01-2024 Monocytes/100 WBC (Bld) 10.9 % Normal . [facility] Comment on above: Performed By: #### B MP, CBC #### [place] [address] [place] #### FRUC #### [facility] , Automated neutrophil %Ordere d By: Rakan Morton on 02-01-2024 Neutrophils/100 WBC (Bld) 59.8 % Normal . [facility] Comment on above: Performed By: #### B MP, CBC #### [place] [address] [place] #### FRUC #### [facility] , Basic Metabolic Panelon GFR/1.73 sq M.predicted MDRD (S/P/Bld) [Vol rate/Area] mL/min/{1.73_m2} Normal [facility] Comment on above: Performed By: #### B MP, CBC #### [facility] [address] [place] [address] [place] #### FRUC #### [facility] , Bilirubin Test strip Ql (U)O rdered By: Rakan Morton on 02-01-2024 Bilirubin Ql (U) Negative Negative [facility] Calcium [Mass/volume] in Ser um or PlasmaOrdered By: Rakan Morton on 02-01-2024 Calcium [Mass/Vol] 8.8 mg/dL Normal 8.6-10.3 [facility] Comment on above: Result Comment: PERF ORMED BY: [place] [address] PATHOLOGIST CHILD CARE ASSOCIATE TEACHER AVERY HAWKINS M.D. Performed By: #### B MP, CBC #### [place] [address] [place] #### FRUC #### [facility] , Carbon dioxide, total [Moles /volume] in Serum or PlasmaOrdered By: Rakan Morton on 02-01-2024 CO2 [Moles/Vol] 27.9 mmol/L Normal 21.0-31.0 [facility] Comment on above: Performed By: #### B MP, CBC #### [facility] [address] [place] [address] [place] #### FRUC #### [facility] , Chloride [Moles/volume] in S sami or PlasmaOrdered By: Rakan Morton on 02-01-2024 Chloride [Moles/Vol] 105 mmol/L Normal 98-[address] [facility] Comment on above: Performed By: #### B MP, CBC #### [facility] [address] [place] [address] [place] #### FRUC #### [facility] , Color of Urine by AutoOrdere d By: Rakan Morton on 02-01-2024 Color (U) Light-yellow Normal Yellow [facility] Comment on above: Order Comment: Name Collection Type:: Clean-Voided Midstream Performed By: #### U A #### [address] Complete Blood Count Auto Di ffon 02-01-2024 Mean Corpuscular HGB Conc 34.4 g/dL Normal 32.5-35.6 [facility] Comment on above: Performed By: #### B MP, CBC #### [address] #### FRUC #### [facility] , NRBC% 0.1 /100{WBC} Normal 0-0.5 [facility] Comment on above: Performed By: #### B MP, CBC #### [address] #### FRUC #### [facility] , Creatinine [Mass/volume] in Serum or PlasmaOrdered By: Rakan Morton on 02-01-2024 Creatinine [Mass/Vol] 0.97 mg/dL Normal 0.70-1.30 [facility] Comment on above: Performed By: #### B MP, CBC #### [place] [address] [place] #### FRUC #### [facility] , ECG 12 lead ECGon 02-01-2024 ECG 12 lead ECG [facility] [place] [address] Electrocardiograph Report Signed Patient: Kayley Sanderson MR#: [id number] : 1955 Acct:[id number] Age/Sex: 68 / M ADM Date: 02/01/24 Loc: Room: Type: [facility] Attending Dr: Rakan Morton II, MD Ordering [...] previous ECGs available Confirmed by ROLAND BRICE FAC, KRYSTLE ([id number]) on 02/01/2024 5:20:57 PM Referred By: GALLITO MORTON Electronically Signed By:KRYSTLE FOX MD [facility] Transcribed By: MUS Signed By Krystle Fox MD, [facility] 02/01/24 1720 Normal [facility] Erythrocyte distribution wid th [Ratio] by Automated countOrdered By: Rakan Morton on 02-01-2024 Erythrocyte distribution width (RBC) [Ratio] 13.2 % Normal 12.0-14.8 [facility] Comment on above: Performed By: #### B MP, CBC #### [facility] [address] [place] [address] [place] #### FRUC #### [facility] , Erythrocytes [#/volume] in B lood by Automated countOrdered By: Rakan Morton on 02-01-2024 RBC (Bld) [#/Vol] 4.72 10*6/uL Normal 3.90-5.60 [facility] Comment on above: Performed By: #### B MP, CBC #### [facility] [address] [place] [address] [place] #### FRUC #### [facility] , Fructosamineon 02-01-2024 Fructosamine 232 umol/L Normal 0-285 [facility] Comment on above: Result Comment: Publ ished reference interval for apparently healthy subjects between age 20 and 60 is 205 - 285 umol/L and in a poorly controlled diabetic population is 228 - 563 umol/L with a mean of 396 umol/L. Performed at: [address] [place], [place] [id number] [place] Barker: Raza Chavez PhD, Phone: [phone] PERFORMED BY: [place] [address] PATHOLOGIST CHILD CARE ASSOCIATE TEACHER AVERY HAWKINS M.D. Performed By: #### B MP, CBC #### [place] [address] [place] #### FRUC #### [facility] , Fructosamine [Moles/volume] in Serum or PlasmaOrdered By: Rakan Morton on 02-01-2024 Fructosamine [Moles/Vol] 232 umol/L 0-285 [facility] Comment on above: Published reference interval for apparently healthysubjects between age 20 and 60 is 205 - 285 umol/L and in apoorly controlled diabetic population is 228 - 563 umol/Lwith a mean of 396 umol/L.Performed at: [facility] [id number] [place], [place] [id number] Director: Raza Chavez PhD, Phone: [phone] Glucose [Mass/volume] in Ser um or PlasmaOrdered By: Rakan Morton on 02-01-2024 Glucose [Mass/Vol] 84 mg/dL Normal 70-100 [facility] Comment on above: ADA recommended refe rence rangeRandom Glucose Reference Range is dependent on time and content of last meal. Glucose of more than 200 mg/dL in a nonstressed, ambulatory subject supports the diagnosis of Diabetes Mellitus. Result Comment: [place] om Glucose Reference Range is dependent on time and content of last meal. Glucose of more than 200 mg/dL in a nonstressed, ambulatory subject supports the diagnosis of Diabetes Mellitus. ADA recommended reference range Performed By: #### B MP, CBC #### [facility] [address] [place] [address] [place] #### FRUC #### [facility] , Glucose [Mass/volume] in Uri ne by Test stripOrdered By: Rakan Morton on 02-01-2024 Glucose Test strip (U) [Mass/Vol] Normal mg/dL Normal [facility] Hematocrit [Volume Fraction] of Blood by Automated countOrdered By: Rakan oMrton on 02-01-2024 Hematocrit (Bld) [Volume fraction] 42.8 % Normal 38.8-50.0 [facility] Comment on above: Performed By: #### B MP, CBC #### [address] #### FRUC #### [facility] , Hemoglobin Test strip Ql (U) Ordered By: Rakan Morton on 02-01-2024 Hemoglobin Ql (U) Negative Negative [facility] Hemoglobin [Mass/volume] in BloodOrdered By: Rakan Morton on 02-01-2024 Hemoglobin (Bld) [Mass/Vol] 14.7 g/dL Normal 13.0-17.0 [facility] Comment on above: Performed By: #### B MP, CBC #### [address] #### FRUC #### [facility] , Ketones [Presence] in Urine by Test stripOrdered By: Rakan Morton on 02-01-2024 Ketones Ql (U) Negative Normal Negative [facility] Comment on above: Order Comment: Name Collection Type:: Clean-Voided Midstream Performed By: #### U A #### [address] Leukocyte esterase [Presence ] in Urine by Test stripOrdered By: Rakan Morton on 02-01-2024 Leukocyte esterase Test strip Ql (U) Negative Normal Negative [facility] Comment on above: Order Comment: Name Collection Type:: Clean-Voided Midstream Performed By: #### U A #### [address] Leukocytes [#/volume] correc missy for nucleated erythrocytes in Blood by Automated counOrdered By: Rakan Morton on 02-01-2024 WBC corrected for nucl RBC Auto (Bld) [#/Vol] 5.0 10*3/uL 4.1-10.5 [facility] Leukocytes [#/volume] in Blo od by Automated countOrdered By: Rakan Morton on 02-01-2024 WBC (Bld) [#/Vol] 5.0 10*3/uL Normal 4.1-10.5 [facility] Comment on above: Performed By: #### B MP, CBC #### [place] [address] [place] #### FRUC #### [facility] , Lymphocytes [#/volume] in Bl ood by Automated countOrdered By: Rakan Morton on 02-01-2024 Lymphocytes (Bld) [#/Vol] 1.4 10*3/uL Normal 1.00-4.8 [facility] Comment on above: Performed By: #### B MP, CBC #### [place] [address] [place] #### FRUC #### [facility] , Lymphocytes/100 leukocytes i n Blood by Automated countOrdered By: Rakan Morton on 02-01-2024 Lymphocytes/100 WBC (Bld) 28.4 % Normal . [facility] Comment on above: Performed By: #### B MP, CBC #### [place] [address] [place] #### FRUC #### [facility] , MCH [Entitic mass] by Automa missy countOrdered By: Rakan Morton on 02-01-2024 MCH (RBC) [Entitic mass] 31.1 pg Normal 27.5-35.2 [facility] Comment on above: Performed By: #### B MP, CBC #### [facility] [address] [place] [address] [place] #### FRUC #### [facility] , MCHC Auto (RBC) [Mass/Vol]Or dered By: Rakan Morton on 02-01-2024 MCHC (RBC) [Mass/Vol] 34.4 g/dL 32.5-35.6 [facility] MCV [Entitic volume] by Auto mated countOrdered By: Rakan Morton on 02-01-2024 MCV (RBC) [Entitic vol] 90.6 fL Normal 83.5-101 [facility] Comment on above: Performed By: #### B MP, CBC #### [address] #### FRUC #### [facility] , Neutrophils [#/volume] in Bl ood by Automated countOrdered By: Rakan Morton on 02-01-2024 Neutrophils (Bld) [#/Vol] 3.0 10*3/uL Normal 1.8-7.7 [facility] Comment on above: Performed By: #### B MP, CBC #### [facility] [address] [place] [address] #### FRUC #### [facility] , Nitrite Test strip Ql (U)Ord ered By: Rakan Morton on 02-01-2024 Nitrite Ql (U) Negative Negative [facility] No Panel InformationOrdered By: Rakan Morton on 02-01-2024 Estimated GFR (CKD-EPI) > 60.0 mL/Min [facility] Creatinine Clearance (Chem N/A [facility] Nucleated erythrocytes [Pres ence] in Blood by Automated countOrdered By: Rakan Morton on 02-01-2024 Nucleated RBC Auto Ql (Bld) 0.1 /100{WBC} 0-0.5 [facility] PST Type and Screenon 2023 ABO and Rh group Nom (Bld) Blood group O Rh(D) negative Normal [facility] Comment on above: Order Comment: Date of Surgery: [id number] Result Comment: PERF ORMED BY: [place] [address] PATHOLOGIST CHILD CARE ASSOCIATE TEACHER AVERY HAWKINS M.D. Platelet mean volume [Entiti c volume] in Blood by Automated countOrdered By: Rakan Morton on 02-01-2024 Platelet mean volume (Bld) [Entitic vol] 8.1 fL Normal 6.6-10.1 [facility] Comment on above: Performed By: #### B MP, CBC #### [facility] [address] [place] [address] [place] #### FRUC #### [facility] , Platelets [#/volume] in Bloo d by Automated countOrdered By: Rakan Morton on 02-01-2024 Platelets (Bld) [#/Vol] 202 10*3/uL Normal 150-450 [facility] Comment on above: Performed By: #### B MP, CBC #### [facility] [address] [place] [address] [place] #### FRUC #### [facility] , Potassium [Moles/volume] in Serum or PlasmaOrdered By: Rakan Morton on 02-01-2024 Potassium [Moles/Vol] 4.4 mmol/L Normal 3.5-5.1 [facility] Comment on above: Performed By: #### B MP, CBC #### [facility] [address] [place] [address] [place] #### FRUC #### [facility] , Protein Test strip (U) [Mass /Vol]Ordered By: Rakan Morton on 02-01-2024 Protein (U) [Mass/Vol] Negative Negative [facility] Serum or plasma anion gap de terminationOrdered By: Rakan Morton on 02-01-2024 Anion gap [Moles/Vol] 9.5 mmol/L Normal 6.0-15.0 [facility] Comment on above: Performed By: #### B MP, CBC #### [facility] [address] [place] [address] [place] #### FRUC #### [facility] , Sodium [Moles/volume] in Ser um or PlasmaOrdered By: Rakan Morton on 02-01-2024 Sodium [Moles/Vol] 138 mmol/L Normal 136-145 [facility] Comment on above: Performed By: #### B MP, CBC #### [address] #### FRUC #### [facility] , Specific gravity Test strip (U) [Rel density]Ordered By: Rakan Morton on 02-01-2024 Specific gravity (U) [Rel density] 1.017 1.001-1.03 0 [facility] Urea nitrogen [Mass/volume] in Serum or PlasmaOrdered By: Rakan Morton on 02-01-2024 Urea nitrogen [Mass/Vol] 15 mg/dL Normal - [facility] Comment on above: Performed By: #### B MP, CBC #### [address] #### FRUC #### [facility] , Urinalysison 02-01-2024 Bilirubin,Urine Negative Normal Negative [facility] Comment on above: Order Comment: Name Collection Type:: Clean-Voided Midstream Performed By: #### U A #### [address] Glucose Ql (U) Normal Normal Normal [facility] Comment on above: Order Comment: Name Collection Type:: Clean-Voided Midstream Performed By: #### U A #### [address] Nitrite,Urine Negative Normal Negative [facility] Comment on above: Order Comment: Name Collection Type:: Clean-Voided Midstream Performed By: #### U A #### [address] Occult Blood,Urine Negative Normal Negative [facility] Comment on above: Order Comment: Name Collection Type:: Clean-Voided Midstream Result Comment: PERF ORMED BY: [place] [address] PATHOLOGIST CHILD CARE ASSOCIATE TEACHER AVERY HAWKINS M.D. Performed By: #### U A #### [address] Protein,Urine Negative Normal Negative [facility] Comment on above: Order Comment: Name Collection Type:: Clean-Voided Midstream Performed By: #### U A #### [address] Specificy [place],Urine 1.017 Normal 1.001-1.03 0 [facility] Comment on above: Order Comment: Name Collection Type:: Clean-Voided Midstream Performed By: #### U A #### [address] Urobilinogen,Urine Normal Normal Normal [facility] Comment on above: Order Comment: Name Collection Type:: Clean-Voided Midstream Performed By: #### U A #### [address] Urine appearanceOrdered By: Rakan Morton on 02-01-2024 Appearance (U) Clear Normal Clear [facility] Comment on above: Order Comment: Name Collection Type:: Clean-Voided Midstream Performed By: #### U A #### [address] Urobilinogen Test strip (U) [Mass/Vol]Ordered By: Rakan Morton on 02-01-2024 Urobilinogen (U) [Mass/Vol] Normal mg/dL Normal [facility] pH of Urine by Test stripOrd ered By: Rakan Morton on 02-01-2024 pH (U) 7.5 [pH] Normal 5.0-9.0 [facility] Comment on above: Order Comment: Name Collection Type:: Clean-Voided Midstream Performed By: #### U A #### [address] A1C with Estimated Average G luon 01-03-2024 Glucose [Mass/Vol] 108 mg/dL Normal [facility] Comment on above: Result Comment: PERF ORMED BY: [place] [address] PATHOLOGIST CHILD CARE ASSOCIATE TEACHER AVERY HAWKINS M.D. Performed By: #### V [id number], A1C WTH eA, PARRISHA #### [place] [address] [place] #### NICOTINE #### [facility] , Cotinine [Mass/volume] in Se rum or PlasmaOrdered By: Rakan Morton on 01-03-2024 Cotinine [Mass/Vol] <1.0 ng/mL . [facility] Comment on above: This test was develo ped and its performance characteristicsdetermined by [facility]. It has not been cleared orapproved by the Food and Drug Administration.Cotinine levels greater than 20.0 are consistent with theuse of tobacco or tobacco cessation products.Performed at: [facility] [address] [id number] Director: Alfonso Saenz MD, Phone: [phone] Glucose mean value [Mass/vol ume] in Blood Estimated from glycated hemoglobinOrdered By: Rakan Morton on 01-03-2024 Average glucose Estimated from glycated hemoglobin (Bld) [Mass/Vol] 108 mg/dL [facility] Hemoglobin A1c percentageOrd ered By: Rakan Morton on 01-03-2024 HbA1c (Bld) [Mass fraction] 5.4 % Normal 4.3-5.6 [facility] Comment on above: Increased risk for d iabetes: 5.7 - 6.4diabetes: >6.4glycemic control for adults with diabetes: <7.0 Result Comment: Incr eased risk for diabetes: 5.7 - 6.4 diabetes: >6.4 glycemic control for adults with diabetes: <7.0 Performed By: #### V [id number], A1C WTH SANA MartinezRSMichelle #### [facility] [address] [place] [address] #### NICOTINE #### [facility] , MRSA Cultureon 01-03-2024 MRSA Culture MRSA Culture Results No MRSA Isolated 2 Days PERFORMED BY: [place] [address] PATHOLOGIST CHILD CARE ASSOCIATE TEACHER AVERY HAWKINS M.D. Normal [facility] Comment on above: Performed By: #### V [id number], A1C WTH eA CUMRSA #### [place] [address] [place] #### NICOTINE #### [facility] , Nicotine [Mass/volume] in Se rum or PlasmaOrdered By: Rakan Morton on 01-03-2024 Nicotine [Mass/Vol] <1.0 ng/mL . [facility] Comment on above: This test was develo ped and its performance characteristicsdetermined by [facility]. It has not been cleared orapproved by the Food and Drug Administration.Nicotine levels greater than 2.0 are consistent with theuse of tobacco or tobacco cessation products. Nicotine/Cotinine Bloodon Cotinine, Blood <1.0 Normal . [facility] Comment on above: Result Comment: This test was developed and its performance characteristics determined by [facility]. It has not been cleared or approved by the Food and Drug Administration. Cotinine levels greater than 20.0 are consistent with the use of tobacco or tobacco cessation products. Performed at: [address] [id number] [place]: Alfonso Saenz MD, Phone: [phone] PERFORMED BY: [address] [place] [address] PATHOLOGIST CHILD CARE ASSOCIATE TEACHER AVERY HAWKINS M.D. Performed By: #### V [id number], A1C [facility] PIEDAD Martinez #### [address] #### NICOTINE #### [facility] , Nicotine, Blood <1.0 Normal . [facility] Comment on above: Result Comment: This test was developed and its performance characteristics determined by [facility]. It has not been cleared or approved by the Food and Drug Administration. Nicotine levels greater than 2.0 are consistent with the use of tobacco or tobacco cessation products. Performed By: #### V [id number], A1C WT SANA MartinezRSA #### [place] [address] [place] #### NICOTINE #### [facility] , Vitamin D 25 Hydroxy Totalon 01-03-2024 Vitamin D 25 Hydroxy Total 38.9 ng/mL Normal 30-100 [facility] Comment on above: Result Comment: SONJA MIN D STATUS 25(OH)VITAMIN D RANGE (ng/mL) Deficient <20 Insufficient 20 to <30 Sufficient 30 to 100 Reference: Yahaira Badillo, Akhil CARPIO, et al. Evaluation,treatment, and prevention of vitamin D deficiency; an Endocrine Society clinical practice guideline. JCEM. 2010; 96(7):1911-30. PERFORMED BY: [place] [address] PATHOLOGIST CHILD CARE ASSOCIATE TEACHER AVERY HAWKINS M.D. Performed By: #### V [id number], A1C WTH PIEDAD Martinez #### [address] #### NICOTINE #### [facility] , Vitamin D+Metabolites [Mass/ volume] in Serum or PlasmaOrdered By: Rakan Morton on 01-03-2024 Vitamin D+Metabolites [Mass/Vol] 38.9 ng/mL 30-100 [facility] Comment on above: VITAMIN D STATUS 25( [place])VITAMIN D RANGE (ng/mL) Deficient <20 Insufficient 20 to <30Sufficient 30 to 100Reference: Yahaira Badillo, Akhil CARPIO, et al. Evaluation,treatment, and prevention of vitamin D deficiency; an Endocrine Society clinical practice guideline. JCEM. 2010; 96(7):1911-30. Wound methicillin resistant Staphylococcus aureus (MRSA) cultureOrdered By: Rakan Morton on 01-03-2024 MRSA isol Org specific cx Ql (Unsp spec) [facility] XR pelvis 1-2Von 01-03-2024 XR pelvis 1-2V [facility] [address] [place] [address] XRay Report Signed Patient: Kayley Sanderson MR#: [id number] : 1955 Acct:[id number] Age/Sex: 68 / M ADM Date: 01/03/24 Loc: [facility] Room: [facility] Att[facility]: Rakan Morton II, MD Copies to: Rakan Morton MD Ordering Provider: Rakan Morton MD Date of Service: 01/03/24 XR/XR knee RT 4V*: M25.561 - Pain in right knee ([id number]) XR/XR pelvis 1-2V: M25.561 - Pain in [...] Kathia Escobar M.D.01/03/2024 1:37 PM Dictation Location: [place] [address] Transcribed By: [facility] 01/03/24 1337 Dictated By: Kathia Escobar MD 01/03/24 1334 Signed By: 01/03/24 1337 Normal [facility] Ambulatory Clinical Summaryo n 09-21-2020 Ambulatory Clinical Summary {[id number]}CD:61 4368 Normal [facility] General Surgery Office/Clini c Noteon 09-21-2020 General [...] # 1 Follow-up With When Contact Information DERIK BRICE, Jayshree Hernandez Only if needed [address] [place] [address]- Additional Instructions: Problem List/Past Medical [...] 03/31/2020 Recorded pulled from external rx history [facility] Comment on above: Result Comment: Elec tronically Signed By: DERIK BRICE, Jayshree Hernandez\.br\Date and Time Signed: 09/21/20 13:43 EST Patient Letter FTon 2020 Patient Letter [facility] (Inserted Image. Joy ble to display) September 21, 2020 KAYLEY SANDERSON [address] [place] [address] KAYLEY SANDERSON 1955 The above named person was unable to participate in aggressive physical activity June 2020, July 2020 and August 2020. Sincerely, Dr. Jayshree Ca MD General Surgery [facility] Provider Letter FTon 09-21 Provider Letter [facility] (Inserted Image. Un able to display) September 21, 2020 KAYLEY SANDERSON [address] [place] [address] KAYLEY SANDERSON 1955 To Whom It May Concern, The above named patient may return to work without restrictions on 10/04/20. Sincerely, Dr. Jayshree Ca MD General Surgery [facility] 08-30 SARS-CoV-2 (COVID-19) RNA SANJAY+probe Ql (Unsp spec) Not detected Normal NOT DETECTED [facility] Comment on above: Result Comment: This test is not yet approved or cleared by the [place] FDA. When there are no FDA-approved or cleared tests available, and other criteria are met, FDA can make tests available under an emergency access mechanism called an Emergency Use Authorization (EUA). The EUA for this test is supported by the [place] of Health and Human Service's (HHS's) declaration [...] consistent with SARS-CoV-2. Performed By: #### C [facility] #### [facility] [address] [place] [address] Lucrecia Bae Ambulatory Clinical Summaryo n 09-02-2020 Ambulatory Clinical Summary {[id number]}CD:61 4368 Normal [facility] General Surgery Office/Clini c Noteon 09-02-2020 General Surgery Office/Clinic Note HPI Staff 8 day post operative visit following right inguinal and epigastric hernia repair at [facility] . Completed pain medication prescribed at time [...] Jayshree CA MD In 2 weeks [address] [place] [address]- Additional Instructions: Problem List/Past Medical History Ongoing [...] Recorded pulled from external rx history Normal [facility] Comment on above: Result Comment: Elec tronically Signed By: DERIK BRICE, Jayshree Solomon\Date and Time Signed: 09/02/20 11:20 EST Operative Reporton Operative Report [id number]#1.00CD:127 Normal [facility] Lab Reportson 08-23-2020 Lab Reports [id number]#1.00CD:127 Normal [facility] Covid-19 PCR ([facility])on 07-31 EUA Statement SEE BELOW Normal [facility] Comment on above: Result Comment: This test is not yet approved or cleared by the [place] FDA. When there are no FDA-approved or cleared tests available, and other criteria are met, FDA can make tests available under an emergency access mechanism called an Emergency Use Authorization (EUA). The EUA for this test is supported by the [place] of Health and Human Service?s (HHS?s) declaration [...] consistent with SARS-CoV-2. Performed By: #### C [facility] #### [facility] [address] [place] [address] Lucrecia Bae SARS-CoV-2 (COVID-19) RNA SANJAY+probe Ql (Unsp spec) Not detected Normal NOT DETECTED [facility] Comment on above: Result Comment: This test is not yet approved or cleared by the [place] FDA. When there are no FDA-approved or cleared tests available, and other criteria are met, FDA can make tests available under an emergency access mechanism called an Emergency Use Authorization (EUA). The EUA for this test is supported by the [employer] of Health and Human Service's (HHS's) declaration [...] longer be used). Performed By: #### C [facility] #### [facility] [address] [place] [address] Lucrecia Bae Consent for Procedure/Surger yon 08-06-2020 Consent for Procedure/Surgery [id number]#[id number]:[address] [facility] Facesheeton 08-06-2020 Facesheet [id number]#1.00CD:[address] [facility] Physician Orderon 08-06-2020 Physician Order [id number]#1.00CD:[address] [facility] Provider Letter FTMCon 08-06 Provider Letter [facility] (Inserted Image. Un able to display) BHAVESH LOPEZ, [address] [place] [address] Re: KAYLEY SANDERSON Date of : 1955 Thank you for your referral of Kayley Sanderson who was seen on consultation on August 04, 2020, for sore right inguinal hernia. A right inguinal herniorrhaphy with mesh is planned. I have enclosed my consultation notes for your review and will be happy to follow Kayley. Sincerely, Dr. Jayshree Ca MD General Surgery [facility] Ambulatory Clinical Summaryo n 08-04-2020 Ambulatory Clinical Summary {[id number]}CD:61 4368 Normal [facility] General Surgery Office/Clini c Noteon 08-04-2020 General Surgery Office/Clinic Note Chief Complaint referral for [facility] Staff 65 year old male presents on [...] 08/04/2020 Family History Metastatic cancer: Sister. Normal [facility] Comment on above: Result Comment: Elec tronically Signed By: DERIK BRICE, Jayshree Solomon\Date and Time Signed: 08/04/20 17:49 EST Patient Educationon 08-04-19 Patient Education Family Medicine Inguinal Hernia, Adult [...] directed by your caregiver. ? Only take lepq-qhp-frlorty or prescription medicines for pain, discomfort, or [...] Document Reviewed: 06/15/2010 ExitCare? Patient Information ?2013 [employer]. Inguinal Hernia, Adult Muscles help keep everything [...] Document Reviewed: 12/02/2009 ExitCare? Patient Information ?2013 [place]. Normal [facility] Physician Referralon 021 Physician Referral [id number]#1.00CD:127 Normal [facility] BMPon 05-20-2017 Anion gap 3 molar conc 15 mmol/L Invalid Interpretation Code 10 - 20 mmol/L [facility] Calcium mass conc 9.0 mg/dL Invalid Interpretation Code 8.4 - 10.2 mg/dL [facility] Chloride molar conc 97 mmol/L Low 98 - 108 mmol/L [facility] Creatinine mass conc 1.34 mg/dL High 0.8 - 1 .3 mg/dL [facility] GFR/1.73 sq M predicted among non-blacks MDRD vol rate/area (S/P/Bld) The eGFR should be used for monitoring renal function only and not for medication dosing. Invalid Interpretation Code [facility] GFR/1.73 sq M.predicted CKD-EPI vol rate/area (S/P/Bld) 57 mL/min/1.73 m2 Low >=60 [facility] Glucose mass conc 130 mg/dL High 65 - 99 mg/dL [facility] HCO3 molar conc 30 mmol/L Invalid Interpretation Code 21 - 32 mmol/L [facility] Potassium molar conc 4.4 mmol/L Invalid Interpretation Code 3.5 - 5.1 mmol/L [facility] Sodium molar conc 138 mmol/L Invalid Interpretation Code 135 - 145 mmol/L [facility] Urea nitrogen mass conc 17 mg/dL Invalid Interpretation Code 8 - 25 mg/dL [facility] Urea nitrogen/Creatinine mass ratio 12.7 mg/mg Invalid Interpretation Code 10.0 - 20.0 [facility] CBC Auto Differentialon 04-30 Basophils Auto #/vol (Bld) 0.01 K/mcL Invalid Interpretation Code 0.00 - 0.30 [facility] [facility] Basophils/100 WBC Auto (Bld) 0.1 % Invalid Interpretation Code [facility] Eosinophils Auto #/vol (Bld) 0.05 K/mcL Invalid Interpretation Code 0.00 - 0.50 [facility] Eosinophils/100 WBC Auto (Bld) 0.7 % Invalid Interpretation Code [facility] Erythrocyte distribution width Auto Entitic volume (RBC) 12.3 % Invalid Interpretation Code 11.6 - 14.8 % [facility] Hematocrit Auto Volume Fraction (Bld) 40.1 % Low 41 - 53 % [facility] Hemoglobin mass conc (Bld) 14.1 g/dL Invalid Interpretation Code 13.5 - 17.5 g/dL [facility] Immature granulocytes #/vol (Bld) 0.02 K/mcL Invalid Interpretation Code 0.00 - 0.30 [facility] Immature granulocytes/100 WBC (Bld) 0.30 % Invalid Interpretation Code [facility] Comment on above: The IG parameter is the percentage of metamyelocytes, myelocytes, and promyelocytes. Interpretation and review of laboratory results Abnormal Invalid Interpretation Code [facility] Lymphocytes Auto #/vol (Bld) 0.78 K/mcL Low 0.90 - 4.00 [facility] Lymphocytes/100 WBC Auto (Bld) 11.2 % Invalid Interpretation Code [facility] MCH Auto Entitic mass (RBC) 30.5 pg Invalid Interpretation Code 26 - 34 pg [facility] MCHC Auto mass conc (RBC) 35.2 g/dL Invalid Interpretation Code 31 - 37 g/dL [facility] MCV Auto Entitic volume (RBC) 86.8 fL Invalid Interpretation Code 80 - 100 fL [facility] Monocytes Auto #/vol (Bld) 0.60 K/mcL Invalid Interpretation Code 0.30 - 0.90 [facility] Monocytes/100 WBC Auto (Bld) 8.6 % Invalid Interpretation Code [facility] Neutrophils Auto #/vol (Bld) 5.52 K/mcL Invalid Interpretation Code 1.70 - 7.00 [facility] Neutrophils/100 WBC Auto (Bld) 79.1 % Invalid Interpretation Code [facility] Nucleated RBC #/vol (Bld) 0.00 K/mcL Invalid Interpretation Code 0.00 - 0.00 [facility] Nucleated RBC/100 WBC Ratio (Bld) 0.0 % Invalid Interpretation Code [facility] Platelet mean volume Auto Entitic volume (Bld) 9.9 fL Invalid Interpretation Code 9 - 15.5 fL [facility] Platelets Auto #/vol (Bld) 187 K/mcL Invalid Interpretation Code 150 - 400 [facility] RBC Auto #/vol (Bld) 4.62 M/mcL Invalid Interpretation Code 4.50 - 5.90 [facility] WBC Auto #/vol (Bld) 6.98 K/mcL Invalid Interpretation Code 4.50 - 11.00 [facility] CBC w/ Diffon 05-20-2017 CBC w/ Diff The following orders were created for panel order CBC w/ Diff. Procedure Abnormality Status --------- ------ CBC Auto Differential[[id number]] Abnormal Final result Please view results for these tests on the individual orders. Invalid Interpretation Code [facility] Work Phone: CT ABDOMEN PELVIS WITH IV [...] or MRI exam.No CT evidence for acute diverticulitis.SH/tdeWorkst ation ID: [id number] by: PAM WOO on Sat May 19, 2017 11:39:51 PM EDTTranscribed by: SON SUAREZ on Sun May 20, 2017 12:18:04 AM EDTFinalized by: PAM WOO on Sun May 20, 2017 12:43:28 AM EDT Normal [facility] Comment on above: Order Comment: Reaso n [...] No acute osseous abnormality. Invalid Interpretation Code [facility] CT Abdomen Pelvis With IV Contrast Only Interface, Rad In A [facility] - 05/20/2017 12:46 AM EDT EXAMINATION: CT [...] exam. No CT evidence for acute diverticulitis. SH/tde Workstation ID: [id number] Invalid Interpretation Code [facility] CT Abdomen Pelvis With IV Contrast Only 4 mm ureteral calculus is seen within the left proximal ureter with left-sided hydronephrosis and hydroureter. Indeterminate renal hypodensities can be further evaluated with outpatient ultrasound or MRI exam. No CT evidence for acute diverticulitis. SH/tde Workstation ID: [id number] Invalid Interpretation Code [facility] Fluoroscopy Less Than 1 Hour on 05-20-2017 Fluoroscopy Less Than 1 Hour This is an auto finalized result. Please refer to patient chart for further information. Invalid Interpretation Code [facility] Gold Topon 05-20-2017 Extra Tube Hold for add-ons. Invalid Interpretation Code [facility] Comment on above: Auto resulted. Light Blue Topon 05-20-2017 Extra Tube Hold for add-ons. Invalid Interpretation Code [facility] Comment on above: Auto resulted. [place] Drawon 05-20-2017 [place] Draw The following orders were created for panel order [place] Draw. Procedure Abnormality Status --------- ------ Gold Top[[id number]] Final result Light Blue Top[[id number]] Final result [place] Top[[id number]] Final result [place] Top[[id number]] Final result Please view results for these tests on the individual orders. Invalid Interpretation Code [facility] Work Phone: Urinalysison 05-20-2017 Bacteria Auto Ql (U) None Seen Invalid Interpretation Code None Seen /hpf [facility] Bilirubin Ql (U) Negative Invalid Interpretation Code Negative [facility] Clarity Refractometry automated Nom (U) Clear Invalid Interpretation Code Clear [facility] Color Auto Nom (U) Colorless Invalid Interpretation Code Colorless, Yellow [facility] Glucose Automated test strip mass conc (U) Negative Invalid Interpretation Code Negative mg/dL [facility] Hemoglobin Automated test strip Ql (U) Small Abnormal Negative [facility] Interpretation and review of laboratory results Abnormal Invalid Interpretation Code [facility] Ketones mass conc (U) Negative Invalid Interpretation Code Negative mg/dL [facility] Leukocyte esterase Automated test strip Ql (U) Negative Invalid Interpretation Code Negative [facility] Nitrite Automated test strip Ql (U) Negative Invalid Interpretation Code Negative [facility] pH Test strip (U) 5.0 [pH] Invalid Interpretation Code 5.0 - 7.0 [facility] Protein mass conc (U) Negative Invalid Interpretation Code Negative mg/dL [facility] RBC Auto #/area (Urine sed) 5 /hpf High 0 - 3 [facility] Specific gravity Automated test strip Relative Density (U) 1.028 1 High 1.005 - 1.025 [facility] Urobilinogen Test strip Qn (U) <2.0 Invalid Interpretation Code <2.0 mg/dL [facility] Urinalysis Microscopic examinat ion is performed on all urinalysis samples and only positive findings are reported. The test for blood on the chemical analytic portion of urinalysis may also be positive due to hemoglobinuria and myoglobinuria and if red blood cells are present they are quantified by microscopic examination. Invalid Interpretation Code [facility] XR FLUOROSCOPY LESS THAN ONE HOURon 05-20-2017 XR FLUOROSCOPY LESS THAN ONE HOUR This is an auto finalized result. Please refer to patient chart for further information. information. information. Normal [facility] Comment on above: Order Comment: Reaso n for exam?:STONEInjury/Trauma or Illness?:Illness/OtherHow long have you had these symptoms (acute/chronic)?:AcuteType of Exam?:InitialAdditional signs and symptoms?:STONEFluoro time in minutes:.52Fluoro dose in mGy?:4.88 Vital Signs Date Time Vital Sign Value Performing Clinician Facility 05-14-2025 15:53-0400 Body height 182.9 cm Miguelangel Almazan Stephie Work Phone: [facility] 05-14-2025 15:53-0400 Body mass index (BMI) [Ratio] 24.41 kg/m2 Miguelangel Tha DPM Work Phone: [facility] 05-14-2025 15:53-0400 Body weight 81.65 kg Miguelangel Almazan DPM Work Phone: [facility] 05-14-2025 15:53-0400 Respiratory rate 16 /min Miguelangelflorentin Almazan DPM Work Phone: [facility] 05-05-2025 14:04-0400 Body height 182.88 cm Bhavesh Ball DO Work Phone: [facility] 05-05-2025 14:04-0400 Body mass index (BMI) [Ratio] 24.7 kg/m2 Bhavesh Ball DO Work Phone: [facility] 05-05-2025 14:04-0400 Body weight 82.55 kg Bhavesh Ball DO Work Phone: [facility] 05-05-2025 14:04-0400 Diastolic blood pressure 70 mm[Hg] Bhavesh Ball DO Work Phone: [facility] 05-05-2025 14:04-0400 Heart rate 81 /min Bhavesh Ball DO Work Phone: [facility] 05-05-2025 14:04-0400 Respiratory rate 12 /min Bhavesh Ball DO Work Phone: [facility] 05-05-2025 14:04-0400 Systolic blood pressure 110 mm[Hg] Bhavesh Ball DO Work Phone: [facility] 04-30-2025 15:22-0400 Body height 182.9 cm Miguelangel Almazan DPM Work Phone: [facility] 04-30-2025 15:22-0400 Body mass index (BMI) [Ratio] 24.41 kg/m2 Miguelangel Almazan DPM Work Phone: [facility] 04-30-2025 15:22-0400 Body weight 81.65 kg Miguelangel Tha DPM Work Phone: [facility] 04-30-2025 15:22-0400 Respiratory rate 18 /min Miguelangel Brown DPM Work Phone: [facility] 02-17-2025 10:00-0400 Diastolic blood pressure 80 mm[Hg] Bhavesh Ball DO Work Phone: [facility] 02-17-2025 10:00-0400 Systolic blood pressure 116 mm[Hg] Bhavesh Ball DO Work Phone: [facility] 02-05-2025 13:26-0400 Body height 182.9 cm Alena Arriola DPM Work Phone: [facility] 02-05-2025 13:26-0400 Body mass index (BMI) [Ratio] 24.14 kg/m2 Alena Arriola DPM Work Phone: [facility] 02-05-2025 13:26-0400 Body weight 80.74 kg Alena Arriola DPM Work Phone: [facility] 08-29-2024 10:07-0500 Body height 182.88 cm Bhavesh Ball DO Work Phone: [facility] 08-29-2024 10:07-0500 Body mass index (BMI) [Ratio] 24.4 kg/m2 Bhavesh Ball DO Work Phone: [facility] 08-29-2024 10:07-0500 Body weight 81.81 kg Bhavesh Ball DO Work Phone: [facility] 08-29-2024 10:07-0500 Diastolic blood pressure 76 mm[Hg] Bhavesh Ball DO Work Phone: [facility] 08-29-2024 10:07-0500 Heart rate 94 /min Bhavesh Ball DO Work Phone: [facility] 08-29-2024 10:07-0500 Respiratory rate 12 /min Bhavesh Ball DO Work Phone: [facility] 08-29-2024 10:07-0500 Systolic blood pressure 116 mm[Hg] Bhavesh Ball DO Work Phone: [facility] 02-18-2024 12:16-0400 Diastolic blood pressure 64 mm[Hg] DO Bhavesh Ball Work Phone: [facility] 02-18-2024 12:16-0400 Heart rate 65 /min DO Bhavesh Ball Work Phone: [facility] 02-18-2024 12:16-0400 Respiratory rate 16 /min DO Bhavesh Ball Work Phone: [facility] 02-18-2024 12:16-0400 SaO2% (BldA) [Mass fraction] 96 % DO Bhavesh Ball Work Phone: [facility] 02-18-2024 12:16-0400 Systolic blood pressure 105 mm[Hg] DO Bhavesh Ball Work Phone: [facility] 02-18-2024 10:20-0400 Inhaled oxygen flow rate 3 L/min DO Bhavesh Ball Work Phone: [facility] 02-18-2024 10:05-0400 Body temperature 97.3 [degF] DO Bhavesh Ball Work Phone: [facility] 02-18-2024 09:30-0400 Body mass index (BMI) [Ratio] 23.6 kg/m2 DO Bhavesh Ball Work Phone: [facility] 02-18-2024 07:02-0400 Body height 182.88 cm DO Bhavesh Ball Work Phone: [facility] 02-18-2024 07:02-0400 Body weight 79 kg DO Bhavesh Ball Work Phone: [facility] 01-11-2024 10:38-0400 Body height 182.88 cm DO Bhavesh Ball Work Phone: [facility] 01-11-2024 10:38-0400 Body mass index (BMI) [Ratio] 23.9 kg/m2 DO Bhavesh Ball Work Phone: [facility] 01-11-2024 10:38-0400 Body weight 80 kg DO Bhavesh Ball Work Phone: [facility] 01-11-2024 10:38-0400 Diastolic blood pressure 74 mm[Hg] DO Bhavesh Ball Work Phone: [facility] 01-11-2024 10:38-0400 Heart rate 82 /min DO Bhavesh Ball Work Phone: [facility] 01-11-2024 10:38-0400 Respiratory rate 12 /min DO Bhavesh Ball Work Phone: [facility] 01-11-2024 10:38-0400 Systolic blood pressure 119 mm[Hg] DO Bhavesh Ball Work Phone: [facility] 01-03-2024 10:09-0400 Body height 182.88 cm DO Bhavesh Ball Work Phone: [facility] 01-03-2024 10:09-0400 Body mass index (BMI) [Ratio] 23.3 kg/m2 DO Bhavesh Ball Work Phone: [facility] 01-03-2024 10:09-0400 Body weight 78.01 kg DO Bhavesh Ball Work Phone: [facility] 09-20-2023 09:10-0500 Body height 182.88 cm [facility] 09-20-2023 09:10-0500 Body mass index (BMI) [Ratio] 23.6 kg/m2 [facility] 09-20-2023 09:10-0500 Body weight 78.98 kg [facility] 09-20-2023 09:10-0500 Diastolic blood pressure 69 mm[Hg] [facility] 09-20-2023 09:10-0500 Heart rate 98 /min [facility] 09-20-2023 09:10-0500 Respiratory rate 12 /min [facility] 09-20-2023 09:10-0500 Systolic blood pressure 113 mm[Hg] [facility] 06-19-2023 13:45-0500 Body height 182.88 cm Bhavesh Ball Other [employer] Other 06-19-2023 13:45-0500 Body mass index (BMI) [Ratio] 23.68 kg/m2 Bhavesh Ball Other [employer] Other 06-19-2023 13:45-0500 Body weight 79.2 kg Bhavesh Ball Other [employer] Other 06-19-2023 13:45-0500 Diastolic blood pressure 83 mm[Hg] Bhavesh Ball Other [employer] Other 06-19-2023 13:45-0500 Respiratory rate 12 /min Bhavesh Ball Other [employer] Other 06-19-2023 13:45-0500 Systolic blood pressure 138 mm[Hg] Bhavesh Ball Other [employer] Other 03-30-2023 11:15-0400 Body height 182.88 cm Siria Faust Other [employer] Other 03-30-2023 11:15-0400 Body mass index (BMI) [Ratio] 23.46 kg/m2 Siria Faust Other [employer] Other 03-30-2023 11:15-0400 Body weight 78.47 kg Siria Faust Other [employer] Other 03-30-2023 11:15-0400 Diastolic blood pressure 72 mm[Hg] Siria Faust Other [employer] Other 03-30-2023 11:15-0400 Systolic blood pressure 116 mm[Hg] Siria Faust Other [facility] [employer] Other 05-20-2017 15:55-0400 Body Temperature 98.2 [degF] [facility] 05-20-2017 15:55-0400 BP Diastolic 65 mm[Hg] [facility]: 05-20-2017 15:55-0400 BP Systolic 112 mm[Hg] [facility]: 05-20-2017 15:55-0400 Pulse Oximetry 98 % [facility]: 05-20-2017 15:55-0400 Respiratory Rate 12 /min [facility]: 05-20-2017 15:30-0400 Pulse (Heart Rate) 84 /min [facility]: 05-19-2017 22:06-0400 BMI (Body Mass Index) 24.14 kg/m2 [facility]: 05-19-2017 22:06-0400 Height 182.9 cm [facility]: 05-19-2017 22:06-0400 Weight 80.74 kg [facility] Encounters Encounter Date Encounter Type Care Provider Facility Start: 05-14-2025 End: 05-14-2025 Clinical Support Miguelangel Almazan DPM Work Phone: [facility] Comment on above: Plantar fasciitis (P rimary Dx); Contracture of left ankle; Contracture of right ankle Start: 05-14-2025 End: 05-14-2025 Bamboo flowsheet Miguelangel Almazan DPM Work Phone: [facility] Start: 05-14-2025 End: 05-14-2025 Bamboo flowsheet Miguelangel Almazan DPM Work Phone: [facility] Start: 05-05-2025 End: 05-05-2025 ambulatory Bhavesh Lopez DO Work Phone: [facility] Work Phone: Start: 05-05-2025 End: 05-05-2025 Patient encounter procedure Bhavesh Lopez [facility] Work Phone: Start: 05-05-2025 End: 05-05-2025 Patient encounter status Bhavesh Lopez DO [facility] Start: 04-30-2025 End: 04-30-2025 Office outpatient visit 15 minutes Miguelangel Almazan DPM Work Phone: [facility] Comment on above: Heel spur, right (Pr imary Dx); Plantar fasciitis; Contracture of left ankle; Contracture of right ankle Start: 04-30-2025 End: 04-30-2025 ambulatory MIGUELANGEL ALMAZAN Not Available Start: 04-30-2025 End: 04-30-2025 Bamboo flowsheet Miguelangel Almazan DPM Work Phone: [facility] Start: 04-30-2025 End: 04-30-2025 Bamboo flowsheet Miguelangel Almazan DPM Work Phone: [facility] Start: 02-17-2025 End: 02-17-2025 ambulatory Bhavesh Lopez DO Work Phone: [facility] Work Phone: Start: 02-17-2025 End: 02-17-2025 Patient encounter procedure Rakan Card MD -[facility] [place] Work Phone: Start: 02-13-2025 Non-patient / Non-visit Juhi Eagle CMA -[facility] Work Phone: Start: 02-05-2025 End: 02-05-2025 ambulatory ALENA ARRIOLA Not Available Start: 02-05-2025 End: 02-05-2025 Bamboo flowsheet Alena Arriola DPM Work Phone: [facility] Start: 02-05-2025 End: 02-05-2025 Bamboo flowsheet Alena Arriola DPM Work Phone: [facility] Start: 02-05-2025 End: 02-05-2025 Office outpatient new 45 minutes Alena Arriola DPM Work Phone: [facility] Comment on above: Pain in joint of lef t foot (Primary Dx); Arthritis of right foot; Peroneal tendonitis, left; Left foot pain Start: 02-05-2025 End: 02-05-2025 ambulatory ALENA ARRIOLA Not Available Start: 11-26-2024 End: 11-26-2024 ambulatory Bhavesh Ball DO Work Phone: [facility] Work Phone: Start: 11-26-2024 End: 11-26-2024 Patient encounter procedure Bhavesh Ball DO Work Phone: [facility] Work Phone: Start: 08-29-2024 End: 08-29-2024 ambulatory Bhavesh Ball DO Work Phone: [facility] Work Phone: Start: 08-29-2024 End: 08-29-2024 Patient encounter procedure Bhavesh Ball DO Work Phone: [facility] Work Phone: Start: 08-26-2024 End: 08-26-2024 Patient encounter procedure Bhavesh Ball DO Work Phone: [facility] Work Phone: Start: 08-26-2024 End: 08-26-2024 ambulatory Bhavesh Ball DO Work Phone: [facility] Work Phone: Start: 05-14-2024 End: 05-14-2024 ambulatory DO Bhavesh Ball Work Phone: [facility] Work Phone: Start: 05-14-2024 End: 05-14-2024 Patient encounter procedure DO Bhavesh Ball Work Phone: [facility] Work Phone: Start: 05-14-2024 End: 05-14-2024 Patient encounter procedure DO Bhavesh Ball Work Phone: [facility] Start: 05-14-2024 End: 05-14-2024 ambulatory DO Bhavesh Ball Work Phone: [facility] Work Phone: Start: 04-02-2024 End: 04-02-2024 ambulatory DO Bhavesh Ball Work Phone: [facility] Work Phone: Start: 04-02-2024 End: 04-02-2024 Patient encounter procedure DO Bhavesh Ball Work Phone: [facility] Work Phone: Start: 2024 End: 2024 ambulatory DO Bhavesh Ball Work Phone: [facility] Work Phone: Start: 2024 End: 2024 Patient encounter procedure DO Bhavesh Ball Work Phone: [facility] Work Phone: Start: 02-18-2024 Non-patient / Non-visit DO Richar surya Ball Work Phone: [facility] Work Phone: Start: 02-18-2024 End: 02-18-2024 Admission to same day surgery center DO Bhavesh Ball Work Phone: [facility] [place] Start: 02-18-2024 End: 02-18-2024 ambulatory DO Bhavesh Ball Work Phone: [facility] Work Phone: Start: 02-14-2024 End: 02-14-2024 Discharged Recurring DO Bhavesh Ball Work Phone: [facility] [place] Start: 02-14-2024 Registered Recurring DO Benjam in Ball Work Phone: [facility] [place] Start: 02-14-2024 End: 02-14-2024 ambulatory DO Bhavesh Ball Work Phone: [facility] Work Phone: Start: 02-08-2024 End: 02-08-2024 ambulatory DO Bhavesh Ball Work Phone: [facility] Work Phone: Start: 02-08-2024 End: 02-08-2024 Patient encounter procedure DO Bhavesh Ball Work Phone: [facility] Work Phone: Start: 02-07-2024 End: 02-07-2024 ambulatory DO Bhavesh Ball Work Phone: [facility] Work Phone: Start: 02-07-2024 End: 02-07-2024 Patient encounter procedure DO Bhavesh Ball Work Phone: [facility] Work Phone: Start: 02-07-2024 End: 02-07-2024 Patient encounter procedure DO Bhavesh Ball Work Phone: [facility] Start: 02-07-2024 End: 02-07-2024 ambulatory DO Bhavesh Ball Work Phone: [facility] Work Phone: Start: 02-01-2024 End: 02-01-2024 Patient encounter procedure DO Bhavesh Ball Work Phone: [facility] Work Phone: Start: 02-01-2024 End: 02-01-2024 ambulatory DO Bhavesh Ball Work Phone: [facility] Work Phone: Start: 02-01-2024 Encounter for preprocedural laboratory examination Rakan Morton II [facility] Start: 01-11-2024 End: 01-11-2024 ambulatory DO Bhavesh Ball Work Phone: [facility] Work Phone: Start: 01-11-2024 End: 01-11-2024 Patient encounter procedure DO Bhavesh Ball Work Phone: [facility] Work Phone: Start: 01-03-2024 End: 01-03-2024 Patient encounter procedure DO Bhavesh Ball Work Phone: [facility] Start: 01-03-2024 End: 01-03-2024 ambulatory DO Bhavesh Ball Work Phone: [facility] Work Phone: Start: 01-03-2024 End: 01-03-2024 ambulatory DO Bhavesh Ball Work Phone: [facility] Work Phone: Start: 01-03-2024 End: 01-03-2024 Patient encounter procedure DO Bhavesh Ball Work Phone: [facility] Work Phone: Start: 01-03-2024 End: 01-03-2024 Patient encounter procedure DO Bhavesh Ball Work Phone: [facility] Start: 01-03-2024 End: 01-03-2024 ambulatory DO Bhavesh Ball Work Phone: [facility] Work Phone: Start: 09-20-2023 End: 09-20-2023 ambulatory [facility] Work Phone: Start: 09-20-2023 End: 09-20-2023 Encounter for general adult medical examination without abnormal findings [facility] Start: 09-20-2023 End: 09-20-2023 Patient encounter procedure [facility] Work Phone: Start: 06-19-2023 End: 06-19-2023 ambulatory Bhavesh Lopez Other [employer] Other Start: 06-19-2023 Office outpatient vi sit 15 minutes Bhavesh Lopez [facility] Start: 03-30-2023 End: 03-30-2023 ambulatory Siria Faust Other [employer] Other Start: 03-30-2023 Office outpatient vi sit 15 minutes Siria Faust [facility] Start: 05-31-2021 End: 05-31-[address] LIDIA MANZANARES Facility:[facility] Start: 09-15-2020 End: 09-15-2020 ambulatory KAYLEY FERNANDEZ JR Facility:[facility] Start: 09-11-2020 End: 09-11-2020 ambulatory KAYLEY FERNANDEZ JR Facility:[facility] Start: 08-26-2020 Encounter for preprocedural laboratory examination DR JAYSHREE CA [facility] Start: 08-25-2020 End: 08-25-[address] JAYSHREE CA Facility:[facility] Start: 08-21-2020 End: 08-21-[address] JAYSHREE CA Facility:[facility] Start: 08-21-2020 End: 08-21-2020 Encounter for preprocedural laboratory examination DR JAYSHREE CA Facility:[facility] Start: 08-18-2020 Encounter for other preprocedural examination DR JAYSHREE CA [facility] Start: 08-12-2020 End: 08-13-[address] JAYSHREE CA Facility:H1 Start: 08-12-2020 End: 08-13-2020 Encounter for other preprocedural examination DR JAYSHREE CA Facility:[facility]1 Start: 05-20-2017 End: 05-20-2017 Ambulatory BHAVESH LOPEZ [facility] Start: 05-19-2017 End: 05-20-2017 Emergency department patient visit Joseph Ray Work Phone: [facility] Medical Observation Comment on above: Ureteral stone with hydronephrosis (Primary Dx) Start: 01-19-2017 End: 01-19-2017 Ambulatory LESLEE WOLFF (PA) [facility] Procedures Date Procedure Procedure Detail Performing [...] Work Phone: Start: 02-01-2024 Antibody screen Sampson rakesh Gallito Comment on above: Order Comment: Date of Surgery: [id number] Result Comment: PERF ORMED BY: [facility] [address] [place] [address] PATHOLOGIST CHILD CARE ASSOCIATE TEACHER AVERY HAWKINS M.D. Start: 01-03-2024 Methicillin resistan t Staphylococcus aureus culture DO [employer] Work Phone: Start: 01-03-2024 X-ray of right knee DO [employer] Work Phone: Start: 05-10-2017 Diabetes mellitus screening Siria Faust Other Start: 05-10-2017 Hyperlipidemia screening Siria Faust Other Start: 05-10-2017 Screening for malign ant neoplasm of colon Siria Faust Other Start: 05-10-2017 Screening for malign ant neoplasm of prostate Siria Faust Other Plan of Treatment Date Care Activity Detail Author Start: 04-30-2025 End: 04-30-2025 Patient encounter procedure 04/30/2025 3:20 PM EDT Office Visit [facility] [address] [place] [address] Miguelangel Almazan DPM [address] [facility] [address] [place] [address] Arrived [facility] Comment on above: Arrived Start: 03-30-2025 Influenza vaccination Influenza Vacc ine (#1) [facility] Start: 03-03-2025 End: 03-03-2025 Patient encounter procedure 03/03/2025 11:00 AM EDT Office Visit [facility] [address] [place] [phone] Alena Arriola DPM [address] [place] [address] [facility] Start: 02-17-2025 End: 02-17-2025 Patient encounter procedure 02/17/2025 1:00 PM EDT Office Visit [facility] [address] [place] [address] Carlo-Beran, William, DPM [address] [place] [address] [facility] Start: 02-05-2025 End: 02-05-2025 Patient encounter procedure 02/05/2025 1:15 PM EDT Office Visit [facility] [address] [place] [phone] Alena Arriola, DPM [address] [place] [address] Arrived [facility] Comment on above: Arrived Start: 11-26-2024 X-ray of right knee, three views XR knee RT 3V - NOT FOR ER USE [facility] Start: 11-26-2024 XR Knee - right 3 Views [facility] Start: 08-26-2024 X-ray of right knee, two views XR knee RT 2V [facility] Start: 08-26-2024 XR Knee - right 2 Views [facility] Start: 05-14-2024 Plain X-ray of right femur XR femur RT 2V* [facility] Start: 05-14-2024 Plain X-ray of right tibia and right fibula XR tibia fibula RT 2V* [facility] Start: 05-14-2024 X-ray of right knee, two views XR knee RT 2V [facility] Start: 05-14-2024 XR Femur - right 2 Views [facility] Start: 05-14-2024 XR Knee - right 2 Views [facility] Start: 05-14-2024 XR Tibia and Fibula - right 2 Views [facility] Start: 04-02-2024 X-ray of right knee XR knee RT 3V - NOT FOR ER USE [facility] Start: 04-02-2024 XR Knee - right 3 Views [facility] Start: 02-18-2024 [facility] Start: 02-18-2024 Hospital admission [facility] Start: 02-18-2024 [facility] Start: 02-07-2024 Plain X-ray of right femur XR femur RT 2V* [facility] Start: 02-07-2024 Plain X-ray of right tibia and right fibula XR tibia fibula RT 2V* [facility] Start: 02-07-2024 XR Femur - right 2 Views [facility] Start: 02-07-2024 XR Tibia and Fibula - right 2 Views [facility] Start: 02-01-2024 [facility] Start: 01-03-2024 MRSA Culture MRSA Culture [facility] Start: 01-03-2024 Methicillin resistan t Staphylococcus aureus [Presence] in Unspecified specimen by Organism specific culture [facility] Start: 01-03-2024 [facility] Start: 01-03-2024 Pelvis X-ray XR pelvis 1-2V [facility] Start: 01-03-2024 X-ray of right knee XR knee RT 4V* [facility] Start: 01-03-2024 XR Knee - right 4 Views [facility] Start: 01-03-2024 XR Pelvis 1 or 2 Views [facility] Start: 03-30-2017 Influenza vaccination SEQUENTI AL INFLUENZA VACCINE (#1) [facility] Work Phone: Start: 2016 Zoster vaccine hzv l doreen for subcutaneous use ZOSTER VACCINE [facility] Work Phone: Start: 2006 Pneumococcal Vaccine : 65+ Years (1 of 1 - PCV) Pneumococcal Vaccine: 65+ Years (1 of 1 - PCV) [facility] Start: 1955 Screening for malign ant neoplasm of colon [facility] Start: 1955 HEPATITIS C SCREENING HEPATITIS C SC REENING [facility] Work Phone: Start: 1955 Screening colonoscopy COLONOSCOPY [facility] Work Phone: Start: 1955 Tetanus vaccination TETANUS EVERY 10 YR [facility] Work Phone: Comprehensive metabo lic 1999 panel - Serum or Plasma [facility] Comprehensive metabo lic 1999 panel - Serum or Plasma [facility] Cotinine [Mass/volum e] in Serum or Plasma [facility] End: 05-20-2017 ECG 12 Lead ECG 12 Lead Routine Once for 1 Occurrences starting 05/20/2017 until 05/20/2017 [facility] Work Phone: Comment on above: Once for 1 Occurrenc es starting 05/20/2017 until 05/20/2017 Glucose measurement estimated from glycated hemoglobin [facility] Nicotine [Mass/volum e] in Serum or Plasma [facility] Patient Education Know your Meds [facility] Work Phone: XR Knee - right 2 Views [facility] Immunizations Immunization Date Immunization Notes Care Provider Silke pablo 05-05-2025 influenza, high dose seasonal, preservative-free Bhavesh Ball DO Work Phone: [facility] 05-23-2023 COVID-19 (PFIZER) 12Y and older DO Bhavesh Lopez Work Phone: [facility] 05-23-2023 influenza virus vaccine, unspecified formulation Alena Tru DPM Work Phone: [facility] 06-01-2022 influenza virus vaccine, split virus (incl. purified surface antigen) Siria Faust Other [employer] Other 06-01-2022 influenza virus vaccine, unspecified formulation [facility] 06-28-2021 COVID-19 mRNA, Comirnaty (Pfizer) DO Bhavesh Lopez Work Phone: [facility] 10-30-2020 COVID-19 Vaccine Pfizer - Documentation Purposes Only Siria Faust Other [facility] 10-09-2020 COVID-19 mRNA, Comirnaty (Pfizer) DO Bhavesh Oceanea Work Phone: [facility] 06-01-2020 tetanus toxoid, adsorbed Siria Faust Other [facility] 05-20-2017 influenza, injectabl e, quadrivalent, preservative free; Translations: [INFLUENZA IIV4 3YO OR > FLUARIX/FLUZONE/AFLURI A 28781] Joseph Ray [facility] Work Phone: 05-20-2017 flu vaccine qv 2017 (FLUZONE QUAD/FLUARIX QUAD) syringe 0.5 mL 0.5 mL, Intramuscular, Prior To Discharge, administer vaccine prior to discharge, ., Starting 05/20/17 at 0254, For 1 dose Given 05/20/2017 17:51 EDT 0.5 mL Left Deltoid; Translations: [Flu Vaccine [id number](36 Mos Up)(Pf)60 McG(15 McGx4)/0.5 Ml Im Syringe] Joseph Ray [facility] Work Phone: Payers Date Payer Category Payer Self-pay [id number] 2022 Private Health Insurance [facility] [id number] 2022 Private Health Insurance [id number] 1959 Unknown [id number] 1955 Unknown [id number] 2.16.840.1.068950.3.579. 2.593 1956 Unknown [id number] 2..840.1.080040.3.579. 2.593 1956 Unknown [id number] 2.16.840.1.194118.3.579. 2.593 1956 Unknown [id number] 2.840.1.373711.3.579. 2.593 1956 Unknown [id number] 2.16.840.1.036161.3.579. 2.593 1956 Unknown [id number] 2.840.1.714443.3.579. 2.593 1956 Unknown [id number] 2.840.1.099464.3.579. 2.1259 1956 Unknown [id number] 2.840.1.509695.3.579. 2.1259 1956 Unknown [id number] 2.840.1.810160.3.579. 2.1259 Unknown [id number] 2.840.1.194657.3.579. 2.531 Unknown [id number] 2.840.1.454133.3.579. 2.531 Unknown [id number] 2.840.1.386820.3.579. 2.531 Unknown [id number] 2.840.1.857371.3.579. 2.531 Unknown [id number] 2.840.1.102510.3.579. 2.531 Unknown [id number] 2.840.1.834847.3.579. 2.531 Unknown [id number] 2.840.1.862633.3.579. 2.531 Unknown [id number] 2.840.1.255131.3.579. 2.531 Unknown [id number] 2.840.1.770684.3.579. 2.531 Unknown [id number] 2.840.1.479664.3.579. 2.531 Social History Date Type Detail Facility Start: 05-20-2017 End: 02-05-2025 Tobacco smoking status GAIS Never smoker [facility] Start: 1955 Sex Assigned At Not on file O [facility] Work Phone: Start: 02-05-2025 End: 04-30-2025 Sex Assigned At [facility] Other Start: 1955 Sex Assigned At Male [facility] Start: 08-26-2024 End: 11-27-2024 Sex Male (finding) [facility] Tobacco smoking status [email or web address] Tobacco smoking consumption unknown [facility] Start: 02-05-2025 End: 05-14-2025 Alcoholic beverage intake Current drinker of alcohol (finding) [facility] Start: 02-05-2025 End: 04-30-2025 Alcoholic beverage intake [facility] Start: 02-05-2025 Alcohol Comment 1-2x monthly [facility] Start: 10-11-2022 Sex Male [facility] Medical Equipment Procedure Code Equipment Code Equipment Origin al Text Equipment Identifier Dates Arthroplasty, knee, total, minimally invasive Uncoated unicondylar knee femur prosthesis [id number] FDA Start: 02-18-2024 Arthroplasty, knee, total, minimally invasive Uncoated unicondylar knee tibia prosthesis, metallic ()[id number] FDA Start: 02-18-2024 Arthroplasty, knee, total, minimally invasive Unicondylar knee insert ()[id number] FDA Start: 02-18-2024 Arthroplasty, knee, total, minimally invasive Orthopaedic cement, non-medicated ()[id number] FDA Start: 02-18-2024 Stent 4.8fr X 22-30cm Contour Pilar Length - [id number] Start: 05-20-2017 Goals Date Patient Goal Desired Activity /State Clinical Notes 08-25-2020 to 05-14-2025 Miguelangel Almazan DPM - 05/14/2025 3:50 PM Dolores Almazan DPM - 04/30/2025 3:20 PM EDT Note Date & Type Note Facility 05-14-2025 History of Presen t illness Narrative Patient: Kayley Sanderson : 1955 PCP: DO AUSTYN Louis Pt presents today for follow up of [...] for the devices. The patient is ambulatory may benefit functionally for this device. It may be used for the following conditions as noted per EMR. Patient understands [id number] cost for devices Miguelangel Almazan DPM documented in this encounter [facility] 04-30-2025 History of Presen t illness Narrative Patient: Kayley Sanderson : 1955 PCP: DO AUSTYN Louis This is a 70 y.o. male that presents today for a CC of right heel pain . States pain with 1st steps in the morning and sharp in nature with treatments consisting of anti-inflammatories and shoe gear modifications with negative relief and presents today for treatment. States the pain on a 1-10 scale a 8 Allergies: No Known Allergies Past Medical History: History reviewed. No pertinent past medical history. Medications: Current Outpatient Medications: meloxicam (Mobic) 15 MG tablet, Take 15 mg by mouth Daily, Disp: , Rfl: Social History: Social History Socioeconomic History Marital [...] Ankle ROM less than 10 degrees b/l. Positive pain on palpation to right medial calcaneal tubercle XRAY: US: DIAGNOSTIC US REPORT - Verbal order today for imaging today The plantar arch and heel of the right foot were scanned today using a 12MHz linear probe in the transverse and sagittal planes, concerning the plantar fascia. Images were obtained. FINDINGS - US exam demonstrates hypo-echoic thickening of plantar fascia with its origin at the medial plantar tuberosity of the calcaneus. The area of thickening and inflammation is greater than 4mm (norm = 4 mm). Small calcaneal enthesophyte noted to right heel IMPRESSION - Right heel plantar fasciitis with heel spur right ASSESSMENT 1. Heel spur, right 2. Plantar fasciitis 3. Contracture of left ankle 4. Contracture of right ankle PLAN Patient to continue with oral anti - inflammatories as needed for pain and recommended OTC medications such as tylenol or Ibuprofen Reviewed ultrasound today with patient Pt given steroid injection to right medial calcaneal tubercle under US guidance with visualization of injected fluid into area of concern per imaging. Injection of 1cc kenalog 10 and 2cc xylocaine 2% plain. Informed patient of risks and benefits of injection including non resolution of symptoms,steroid flare, tendon damage or rupture. Pt consents to proceed. 1st injection Dispensed night splint/dynamic customized AFO ([id number]) to ambulatory patient today with patient education on usage and ABN signed for device if warranted. A verbal order for dispensing of device was given today. Device dispensed for ankle contracture/deformity and or plantar fascitis as noted per diagnosis.The patient may benefit functionally from this device. The AFO was assembled with straps adjusted for proper custom fitting by Miguelangel Almazan DPM and staff. The patient is ambulatory and may benefit functionally from this device. It may be used for the following conditions as noted per medical diagnosis. Prescription today for Mobic Pre-certify for inserts Miguelangel Almazan DPM documented in this encounter [facility] 02-17-2025 Evaluation note Diagnosis Onset Date Resolution Aftercare following right knee joint replacement surgery acute February 17, 025 9:45am Status post right knee replacement acute February 17, 2025 9:45am Encounter for screening for malignant neoplasm of prostate acute May 05 1:59pm Primary osteoarthritis of knee acute May 05 1:59pm Wellness examination noneactive 2024 1:59pm [facility] Work Phone: 1(461) 444-189807-10-2025 History of Present illness Narrative* Alena Arriola DPM - 02/05/2025 1:15 PM EDT Images [...] 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 HPI Patient presents [...] does wear custom inserts and typically wears [employer]cher tennis shoes to work Review of Systems [...] understanding. Alena Arriola DPM documented in this [facility]04-30-2025 Evaluation note* Diagnosis Onset Date Resolution Status Admit Date Aftercare following right kn ee joint replacement surgery acute November 26, 2024 8:11am Status post right knee replacement acute November 26, 2024 8:11am Aftercare following right kn ee joint replacement surgery acute January 282024 9:45am Status post right knee replacement acute February 17, 2025 9:45am [facility] Work Phone: 1(114) 852-646501-31-2025 Evaluation note* Diagnosis Onset Date Resolution Status Admit Date BPPV (benign paroxysmal positional vertigo) noneactive July 10:00am Dehydration noneactive August 29, 2024 10:00am Aftercare following right knee joint replacement surgery acute November 26, 2024 8:11am Status post right knee replacement acute November 26, 2024 8:11am [facility] Work Phone: 1(666) 102-129401-28-2025 Evaluation note* Diagnosis Onset Date Resolution Status Admit Date Aftercare following right kn ee joint replacement surgery acute 2024 9:58am Status post right knee replacement acute August 26 9:58am [facility] Work Phone: 1(832) 529-753911-21-2023 Evaluation note* Encounter Date Diagnosis Assessment Notes Treatment Notes Treatment Clinical Notes May, Xerosis of skin (ICD-10 - L85.3) Start using Dove soap. List of moisturizers daily Avoid hot baths Doubt antihistamines [employer] Other 09-01-2023 Evaluation note* Encounter Date Diagnosis [...] plan. Mar, Eye irritation (ICD-10 - H57.89) [employer] Other 02-17-2021 NoteOPERATIVE NOTE OPERATION DATE: 09-15-20 [...] Colonoscopy will be recommended in 5 years. [facility] Signed and Approved by: KAYLEY FERNANDEZ JR 09/16/2020 12:58:00[facility]01-27-2021 NoteOPERATIVE NOTE OPERATION DATE: 08/25/2020 PREOPERATIVE DIAGNOSES: [...] structures were mobilized and retracted with a Rotan drain. There was noted to be an [...] sent to Recovery Room in good condition. [facility] Signed and Approved by: DR JAYSHREE CA . 08/26/2020 09:02:00[facility] Diagnosis Onset Date Resolution Status Wellness examination noneact doreen [facility] Work Phone: Evaluation note* Diagnosis Onset Date Resolution Status Primary osteoarthritis of right knee acute [facility] Work Phone: Evaluation note* Diagnosis Onset Date Resolution Status Primary osteoarthritis of right knee acute Primary osteoarthritis of right knee acute Preop exam for internal medicine noneactive [facility] Work Phone: Evaluation note* Diagnosis Onset Date Resolution Status Primary osteoarthritis of right knee acute Primary osteoarthritis of right knee acute Preop exam for internal medicine noneactive Primary osteoarthritis of right knee acute [facility] Work Phone: Evaluation note* Diagnosis Onset Date Resolution Status Primary osteoarthritis of right knee acute Primary osteoarthritis of right knee acute Preop exam for internal medicine noneactive Primary osteoarthritis of right knee acute Aftercare following right kn ee joint replacement surgery acute Status post right knee replacement acute [facility] Work Phone: Evaluation note* Diagnosis Onset [...] acute Status post right knee replacement acute [facility] Work Phone: Evaluation note* Diagnosis Onset Date Resolution Status Primary osteoarthritis of right knee acute Preop exam for internal medicine noneactive Primary osteoarthritis of right knee acute Aftercare following right kn ee joint replacement surgery acute Status post right knee replacement acute Aftercare following right kn ee joint replacement surgery acute Status post right knee replacement acute [facility] Work Phone: Evaluation note* Diagnosis Onset Date Resolution Status Aftercare following right knee joint replacement surge ry acute Status post right knee replacement acute Aftercare following right knee joint replacement surge ry acute Status post right knee replacement acute Aftercare following right knee joint replacement surge ry acute Status post right knee replacement acute [facility] Work Phone: Evaluation note* Diagnosis Onset Date Resolution Status Admit Date Aftercare following right kn ee joint replacement surgery acute 2024 9:58am Status post right knee replacement acute August 26 9:58am [facility] Work Phone: Evaluation note* Diagnosis Pain in joint of left foot- Primary Arthritis of right foot Peroneal tendonitis, left Left foot pain Pain in soft tissues of limb documented in this encounter [facility] Healthcare[facility]* Diagnosis Heel spur, right- Primary Plantar fasciitis Plantar fascial fibromatosis Contracture of left ankle Contracture of right ankle [facility] Diagnosis Plantar fasciitis- Primary Plantar fascial fibromatosis Contracture of left ankle Contracture of right ankle documented in this [facility] N[facility]ative - Reported* Type Description Date Surgical History arthroscopic knee surgery left and right Surgical History colonoscopy 2020 Surgical History Hernia x2 [facility] Other History general Narrative - Reported* Type Description Date Surgical History arthroscopic knee surgery left and right Surgical History colonoscopy 2020 Surgical History Hernia x2 Hospitalization History see surgical history [facility] [employer] Other Reason for referral (narrative)No reason for referral [facility] Work [facility] Summary Purpose Family History Relationship Condition Age at Onset Recorded Date/T treasure father Unknown Not Specified Unknown Relationship Condition Age at Onset Recorded Date/T treasure father Unknown mother Unknown sister Malignant neoplasm of bone Unknown Advance Directives Advance Directive Response Recorded Date/ Time Advance Directives No June 07, 2017 9:03am Advance Directive Response Recorded Date/ Time Advance Directives No June 07, 2017 10:03am Discharge Instructions The following attachments cannot be sent through Care Everywhere. * URETERAL STENT PLACEMENT: POST-OP (SLOVENIAN) in this encounter History of Present Illness * Leslee Gordon CNP - 05/20/2017 6:42 PM EDT Formatting of this note may be different from the original. Leslee Gordon CNP [facility] Hospitalists MEDICAL OBSERVATION DISCHARGE SUMMARY Kayley Sanderson Admit Date: 05/19/2017 Discharge Date: 05/20/17 Family Physician: Bhavesh Lopez, MEDICAL OBSERVATION UNIT SUMMARY Kayley Sanderson is [...] 4, pt tolerating a diet. * Enid Yates RN - 05/20/2017 6:17 PM EDT Discharge [...] 2024 9:58am Status post right knee replacement Jose Miguel ry 2024 9:58am Chief Complaint Admit Date [...] right knee replacement November 26, 2024 8:11am Chief Complaint Admit Date 3 MONTHS November 26, 2024 8:1 1am Z96.651 - Presence of right artificial k nee joint November 26, 2024 8:14am Amb Documentation February 13, 2025 9:08 am 1 YR POST OP February 17, 2025 9:45 am Reason for Visit Admit Date Aftercare following right knee joint rep lacement surgery November 26, 2024 8:11am Status post right knee replacement November 26, 2024 8:11am Aftercare following right knee joint rep lacement surgery February 17, 2025 9:45am Status post right knee replacement February 17, 2025 9:45am Chief Complaint Admit Date Amb Documentation February 13, 2025 9:08 am 1 YR POST OP February 17, 2025 9:45 am wellness May 05, 2025 1: 59pm Reason for Visit Admit Date Aftercare following right knee joint rep lacement surgery February 17, 2025 9:45am Status post right knee replacement February 17, 2025 9:45am Encounter for screening for malignant ne oplasm of prostate May 05, 2025 1:59pm Primary osteoarthritis of knee May 052024 1:59pm Wellness examination May 05, 2025 1 :59pm Additional Source Comments (unrecognized sect ion and content) No Status Records FoundNo Status Records FoundNo Status Records FoundNo Status Records FoundNo Status Records FoundNo Status Records Found INFORMATION SOURCE (unrecogn ized section and content) DATE CREATED AUTHOR 01/22/2018 [facility] DATE CREATED AUTHOR AUTHOR'S ORGANIZ ATION 01/23/2018 [facility] DATE CREATED AUTHOR AUTHOR'S ORGANIZ ATION 09/23/2020 [facility] DATE CREATED AUTHOR AUTHOR'S ORGANIZ ATION 06/02/2021 [facility] DATE CREATED AUTHOR AUTHOR'S ORGANIZ ATION 12/04/2024 [facility] DATE CREATED AUTHOR AUTHOR'S ORGANIZ ATION 05/05/2025 [facility] EPIC Reason for Visit [...] 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 Kayley Veloz MD [facility] Hospitalists History and Physical Patient Name:Kayley Sanderson MR #:[id number] :1955 Admit Date: [id number] Physicians: Bhavesh Lopez, (Family); No ref. provider found (Referring) Perpetual [...] of diverticulitis on 05/01/17. Was treated at [facility] ED. Discharged on po Cipro/Flagyl. The course [...] 50 MINUTES in this encounter Kenney, Sonia Chandra MD - 05/20/2017 10:05 AM EDT Consult Notes (unrecognized section and content) Associated Order(s): IP CONSULT TO UROLOGY Formatting of this note may be different from the original. Patient Name: Kayley Sanderson Admit Date: [id number] MR #: [id number] : 1955 Physicians: Bhavesh Lopez DO (Family); [...] Dr. Kenney's office for follow up instructions ([phone]). Formatting of this note may be different from the original. Brief Post Operative Note Patient Name: Kayley Sanderson : 1955 (62 y.o.) Date of Service: 05/20/2017 CSN: [id number] Procedure(s): CYSTOSCOPY, RETROGRADE PYELOGRAM, LEFT URETEROSCOPY, left JJ STENT PLACEMENT, Pre-Operative Diagnoses: * LEFT URETERAL CALCULUS Post-Operative Diagnoses: * Same as Pre-Op Diagnosis Surgeon(s) and Role: * Sonia Kenney MD - Primary Anesthesiologist: Angela Manzanares MD Chamber Walker: Siria Goodrich RN Artisan Plasterer: Annemarie Chavez, TECHNOLOGIST Scrub Person: Bonnie Seay [...] Implant Name Type Inv. Item Serial No. Merchandising Execution Manager Lot No. LRB No. Used Action STENT 4.8FR X 22-30CM CONTOUR PILAR LENGTH - [id number] Stent STENT 4.8FR X 22- 30CM CONTOUR PILAR LENGTH GEOFF SCI U [id number] Left 1 Implanted Drain(s): Wound(s): Sonia Kenney MD 05/20/2017 2:32 PM Associated Problem(s): Kidney stone noted the onset of LLQ abdominal pain starting 05/19/17. Presented to ED where CT showed left ureteral stone. -Admit to OBS -NPO -Consult Urology: Dr. Kenney -Start IV fluids -Start Flomax, daily -Pain meds, prn -Anit-emetics.prn copc to write orders for tonya [phone] Dr kenney to speak to dr ray on 1449 Dr jackman spoke with dr ray on [phone] Visitor at bedside. Physician at bedside. Visitor at bedside. Patient is resting comfortably. Call light within reach. Patient updated on continued plan of care. Formatting of this note may be different from the original. [facility] PCP - Bhavesh Lopez DO [...] Colorless, Yellow Clarity, Urine Clear Clear Specific [place] 1.028 (H) 1.005 - 1.025 pH, Urine [...] 500 mL (0 mL Intravenous Stopped 05/19/17 2359) iopamidol (ISOVUE-370) 76 % injection 75 mL [...] completed with a voice recognition software -- Yobble by Jeniffer Ray DO 05/20/17 0351 Visitor at bedside. Physician at bedside. Pt [...] DO Primary Care Provider Active Team Status: Active Member Role Status Dates Bhavesh Lopez DO Primary Care Provider Active Start: February 13, 2025 Juhi Garibay CMA Attending Provider Active Start: February 13, 2025 Team Status: Inactive Member Role Status Dates Bhavesh Lopez DO Primary Care Provider Active Start: February 17, 2025 End: February 17, 2025 Rakan Morton II, MD Attending Provider Active Start: February 17, 2025 End: February 17, 2025 Team Status: Inactive Member Role Status Dates Bhavesh Lopez DO Primary Care Provider Active Start: May 05, 2025 End: May 05, 2025 Bhavesh Lopez DO Attending Provider Active Sta rt: May 05, 2025 End: May 05, 2025 Team Status: Inactive Member Role Status Dates [...] 2024 Team Status: Active Member Role Status Mark Lopez DO Primary Care Provider Active Start: April 02, 2024 Rakan Morton II, MD Attending Provider Active Start: April 02, 2024 Team Status: Active Member Role Status Mark Lopez DO Primary Care Provider Active Start: May 14, 2024 Rakan Morton II, MD Attending Provider Active Start: May 14, 2024 Team Status: Inactive Member Role Status Mark Lopez DO Primary Care Provider Active Start: [...] Attending Provider Active Start: November 26, 2024 Education Nurse Relationship Specialty Start Date End Date Bhavesh Lopez DO [address] [facility] [place] [phone] PCP - General Internal Medicine 02/04/25 Education Nurse Relationship Specialty Start Date End Date Bhavesh Lopez [address] [facility] [place] [phone] PCP - General Internal Medicine 02/04/25 Education Nurse Relationship Specialty Start Date End Date Bhavesh Lopez [address] [facility] [place] [phone] PCP - General Internal Medicine 02/04/25 Education Nurse Relationship Specialty Start Date End Date Bhavesh Lopez [address] [facility] [place] [address] PCP - General Internal Medicine 02/04/25 Education Nurse Relationship Specialty Start Date End Date Bhavesh Lopez [address] [facility] [place] [address] PCP - General Internal Medicine 02/04/25 Goals [...] BE BASED ON THE PRIMARY CLINICAL RECORDS. [employer] [facility]. provides no warranty or guarantee of the accuracy or completeness of information in this document.
[2025-05-16 08:25] LABS: Hematocrit 46.7 % (42.0-54.0); Hemoglobin 16.0 g/dL (14.0-18.0); Immature Granulocytes Abs Auto 0.01 10^3/uL (0.00-0.03); Immature Granulocytes Pct Auto 0.1 % (0.0-0.5); Lymphocytes Absolute Auto 1.4 10^3/uL (1.2-3.8); Mean Corpuscular HGB Conc 34.3 g/dL (29.9-35.2); Mean Corpuscular Hemoglobin 31.4 pg (25.9-34.0); Mean Corpuscular Volume 91.7 fL (80.0-94.0); Platelet Count 216 10^3/uL (150-450); Red Blood Count 5.09 10^6/uL (4.70-6.10); White Blood Count 7.0 10^3/uL (4.0-11.0)
[2025-05-16 08:43] LABS: Alanine Aminotransferase 42 U/L (16-63); Albumin Globulin Ratio 1.1; Albumin Level 4.2 g/dL (3.4-5.0); Alkaline Phosphatase 85 U/L (46-116); Anion Gap 14.9; Aspartate Amino Transferase 34 U/L (15-37); Blood Urea Nitrogen 17.0 mg/dL (7.0-18.0); Calcium 9.4 mg/dL (8.5-10.1); Carbon Dioxide 26.6 mmol/L (21.0-32.0); Chloride 103 mmol/L (98-107); Cholesterol 170 mg/dL (<=200); Estimated GFR (African America >60 (>=60 mL/min/1.73m^2); Estimated GFR (Non-African Ame 58 (>=60 mL/min/1.73m^2); Globulin 3.7 g/dL; Glucose 96 mg/dL (74-106); HDL Cholesterol 75 mg/dL (40-60); Potassium 4.5 mmol/L (3.5-5.1); Sodium 140 mmol/L (136-145); Total Protein 7.9 g/dL (6.4-8.2); Triglycerides 43 mg/dL (<=150); VLDL CHOLESTEROL 8.6 mg/dL
== END 2025-05-16 07:53 | disposition home or self-care (01) ==
PROVIDERS: PCP Internal Medicine; Visit Provider Internal Medicine
DX: Z00.00 Encounter for general adult medical examination without abnormal findings (principal); Z12.5 Encounter for screening for malignant neoplasm of prostate
CPT/HCPCS: 36415; 80053; 80061; 85025; G0103